=== PATIENT | male | born 1945 | race Caucasian/White ===

== ENCOUNTER 2016-11-27 14:32 | Inpatient (IN) | payer BC, OTHER ==
[~2016-11-27] VITALS: Ht 167.6 cm; Wt 67.5 kg
[~2016-11-27 14:32] MED LIST: ALL100 PO; COLE625T PO; LEUP30IN3 IM; NRN600 PO; OMEP20CA59 PO; ONDA4TAB46 PO; TAMS0.4C38 PO; TAPE1TAB10 PO; TAPE75TA2 PO
[2016-11-27] MEDS ORDERED: ALLO100T PO (15:50)
[2016-11-27] MEDS ORDERED: NRN600 PO (15:50)
--- NOTE | 2016-11-27 16:07 | EMERGENCY ROOM VISIT NOTE ---
History Report prepared by Adria: Chantel Ku Under the Supervision of: Dr. Brent Ford D.O. First contact with patient: 15:54 Chief Complaint: ABDOMINAL PAIN Stated Complaint: BLACK STOOLS, STAGE 4 CANCER, ABDOMINAL PAIN Nursing Triage Summary: Triage note; Pt ambulatory to triage. pt reports intermittent generalized abd pain x 2 weeks. pt reports black tarry stools which started today. pt reports nausea. pt reports stage 4 prostate cancer with mets. pt reports chemo tx in sep 2016. pt denies any weakness or dizziness. History of Present Illness The patient is a 71 year old male who presents to the Emergency Room with complaints of persistent abdominal pain that began two weeks ago. He currently rates his discomfort as a 7/10 in severity and describes it as a soreness. The patient states that he has a history of colon cancer, and additionally notes that he is currently battling aggressive stage IV prostate cancer. He states that his last chemotherapy treatment was in September 2016. The patient notes that today he developed melanotic stools. He notes that he has had pain to his left ribcage. The patient denies being on any blood thinners and denies any history of DVTs or PEs. He denies any chest pain or shortness of breath today. Source of History: patient Onset: two weeks ago Position: abdomen Symptom Intensity: 7/10 Quality: other (soreness) Timing: other (persistent) Associated Symptoms: + melena, No SOB, No chest pain Note: Associated Symptoms: Pain to left ribcage. Review of Systems See above for pertinent positives & negatives. A total of 10 systems reviewed and were otherwise negative. Past Medical & Surgical Medical Problems: (1) Abdominal pain (2) Hydronephrosis, left (3) Left ureteral calculus (4) Prostate ca Surgical Problems: (1) Hx of cholecystectomy (2) S/P colectomy Family History FH: GI cancer Social History Smoking Status: Never Smoker Alcohol Use: none Drug Use: none Marital Status: Current/Historical Medications Scheduled Allopurinol (Zyloprim), 100 MG PO BID Colesevelam (Welchol), 625 MG PO TID Gabapentin (Gabapentin), 600 MG PO QID Leuprolide Acetate (Lupron Depot), 30 MG IM [id number] Omeprazole (Prilosec), 20 MG PO QAM Tamsulosin Hcl (Flomax), 0.4 MG PO QPM Tapentadol Hcl (Nucynta Er), 1 TAB PO BID Scheduled PRN Tapentadol Hcl (Nucynta), 75 MG PO Q6H PRN for Pain Allergies Coded Allergies: No Known Allergies (Unverified , 11/27/16) Physical Exam Vital Signs Date Time Temp Pulse Resp B/P Pulse Ox O2 Delivery O2 Flow Rate FiO2 11/27/16 16:44 77 11/27/16 16:43 77 18 132/85 98 11/27/16 14:39 36.8 83 18 114/80 98 Room Air Physical Exam GENERAL: Patient is well appearing and in no acute distress. HEENT: No acute trauma, normocephalic atraumatic, mucous membranes moist, no nasal congestion, no scleral icterus. NECK: No stridor, no adenopathy, no meningismus, trachea is midline. LUNGS: No dyspnea. Clear to auscultation and equal bilaterally. No wheeze, no rhonchi. HEART: Regular rate and rhythm. No murmurs, rubs, gallops appreciated. ABDOMEN: Soft, nontender, bowel sounds positive, no masses appreciated, no peritonitis. BACK: No midline tenderness, no CVA tenderness RECTAL: Mild tenderness, black stool guaiac positive. EXTREMITIES: Normal motion all extremities, no cyanosis, no edema. NEUROLOGIC: Alert and oriented, no acute motor or sensory deficits, no focal weakness, cranial nerves grossly intact. SKIN: No rash, no jaundice, no diaphoresis. Medical Decision & Procedures ER Provider Diagnostic Interpretation: X ray results and stated below per my interpretation and radiologist interpretation. Other radiology results and stated below per my review and radiologist interpretation: ABDOMEN AND PELVIS CT WITH IV CONTRAST CT DOSE: 266.78 mGy.cm HISTORY: GI bleeding gi bleeding, Known CA TECHNIQUE: Multiaxial CT images of the abdomen and pelvis were performed following the use of intravenous contrast. COMPARISON STUDY: 09/26/2016 FINDINGS: Lung bases are clear. The hepatic metastatic change is considered stable. Slight increase in size of a least one of the hepatic metastatic deposit is now measuring 1.6 cm. Fatty infiltration of pancreas stable. Prior cholecystectomy. Mild left renal hydronephrosis stable from the prior exam including perinephric infiltrative change left as well as right renal regions. Left para-aortic adenopathy slightly progressive compared to the prior exam with current maximum dimensions of 4.6 cm increased from 4.0 cm. Small anterior ventral hernia containing a small loop of small bowel unchanged. There is a nonobstructive finding. Bony metastatic change unaltered area in prosthetic radioactive seeds unchanged in position. Several bilateral pelvic vascular clips unchanged. IMPRESSION: 1. Findings of slightly progressive periaortic necrotic philly pathology. 2. Slight progression of the patient's superior right hepatic lobe metastatic change. 3. Mild left hydronephrosis minimally progressive from the prior study. 4. Bony metastatic change stable. 5. Nonobstructive bowel pattern unchanged Electronically signed by: Dwight Ziegler M.D. 11/27/2016 5:58 PM Dictated Date/Time: 11/27/2016 5:52 PM Laboratory Results 11/27/16 16:35 Red Blood Count 3.19, Mean Corpuscular Volume 100.3, Mean Corpuscular Hemoglobin 33.5, Mean Corpuscular Hemoglobin Concent 33.4, Mean Platelet Volume 9.2, Neutrophils (%) (Auto) 82.0, Lymphocytes (%) (Auto) 7.2, Monocytes (%) ( Auto) 9.6, Eosinophils (%) (Auto) 0.8, Basophils (%) (Auto) 0.2, Neutrophils # ( Auto) 5.38, Lymphocytes # (Auto) 0.47, Monocytes # (Auto) 0.63, Eosinophils # ( Auto) 0.05, Basophils # (Auto) 0.01 11/27/16 16:35 Test 11/27/16 16:35 11/27/16 17:30 White Blood Count 6.55 K/uL (4.8-10.8) Red Blood Count 3.19 M/uL (4.7-6.1) Hemoglobin 10.7 g/dL (14.0-18.0) Hematocrit 32.0 % (42-52) Mean Corpuscular Volume 100.3 fL (80-100) Mean Corpuscular Hemoglobin 33.5 pg (25-34) Mean Corpuscular Hemoglobin Concent 33.4 g/dl (32-36) Platelet Count 265 K/uL (130-400) Mean Platelet Volume 9.2 fL (7.4-10.4) Neutrophils (%) (Auto) 82.0 % Lymphocytes (%) (Auto) 7.2 % Monocytes (%) (Auto) 9.6 % Eosinophils (%) (Auto) 0.8 % Basophils (%) (Auto) 0.2 % Neutrophils # (Auto) 5.38 K/uL (1.4-6.5) Lymphocytes # (Auto) 0.47 K/uL (1.2-3.4) Monocytes # (Auto) 0.63 K/uL (0.11-0.59) Eosinophils # (Auto) 0.05 K/uL (0-0.5) Basophils # (Auto) 0.01 K/uL (0-0.2) RDW Standard Deviation 57.4 fL (36.4-46.3) RDW Coefficient of Variation 15.4 % (11.5-14.5) Immature Granulocyte % (Auto) 0.2 % Immature Granulocyte # (Auto) 0.01 K/uL (0.00-0.02) Prothrombin Time 10.4 SECONDS (9.0-12.0) Prothromb Time International Ratio 1.0 (0.9-1.1) Activated Partial Thromboplast Time 26.2 SECONDS (21.0-31.0) Partial Thromboplastin Ratio 1.0 Anion Gap 9.0 mmol/L (3-11) Est Creatinine Clear Calc Drug Dose 71.1 ml/min Estimated GFR () 101.1 Estimated GFR (Non- 87.2 BUN/Creatinine Ratio 11.7 (10-20) Calcium Level 9.0 mg/dl (8.5-10.1) Total Bilirubin 0.3 mg/dl (0.2-1) Direct Bilirubin < 0.1 mg/dl (0-0.2) Aspartate Amino Transf (AST/SGOT) 21 U/L (15-37) Alanine Aminotransferase (ALT/SGPT) 25 U/L (12-78) Alkaline Phosphatase 65 U/L (45-117) Total Protein 7.0 gm/dl (6.4-8.2) Albumin 3.7 gm/dl (3.4-5.0) Lipase 49 U/L (73-393) Urine Color YELLOW Urine Appearance CLEAR (CLEAR) Urine pH 5.0 (4.5-7.5) Urine Specific [place] 1.001 (1.000-1.030) Urine Protein NEG (NEG) Urine Glucose (UA) NEG (NEG) Urine Ketones NEG (NEG) Urine Occult Blood NEG (NEG) Urine Nitrite NEG (NEG) Urine Bilirubin NEG (NEG) Urine Urobilinogen NEG (NEG) Urine Leukocyte Esterase NEG (NEG) Laboratory results as reviewed by me. Medications Administered Medications (Trade) Dose Ordered Sig/Scott Route Start Time Stop Time Status Last Admin Dose Admin Sodium Chloride (Nss 1000ml) 1,000 ml @ 999 mls/hr Q1H1M STAT IV 11/27/16 16:18 11/27/16 17:18 DC 11/27/16 16:39 999 MLS/HR Hydromorphone HCl (Dilaudid Inj) 2 mg ONE STAT IV 11/27/16 16:18 11/27/16 16:21 DC 11/27/16 16:39 2 MG ECG Indication: abdominal pain Rate (beats per minute): 74 Rhythm: normal sinus Findings: PAC, other (Normal axis, normal intervals) Comparison ECG Date: 12/02/15 Change: no significant change ED Course 1556: The patient was evaluated in room B10. A complete history and physical exam was performed. 1618: Ordered Dilaudid Inj 2 mg IV, Sodium Chloride 1000 ml @ 999 mls/hr IV. 1755: I reevaluated the patient and he is feeling better. 180: I discussed the patients case with Dr. Khoury [facility]. He is going to evaluate the patient for further treatment. 180: I reevaluated the patient and he is doing well. I discussed all the exam findings with him and I discussed the treatment plan. He verbalized complete understanding and agreement. He is going to be evaluated for further treatment. Medical Decision Differential diagnosis: Etiologies such as diverticulosis, AVM, coagulopathy, colitis, inflammatory bowel disease, malignancy, Amber-Roper tear, esophagitis, peptic ulcer disease , variceal bleed, gastritis, epistaxis, fissure, hemorrhoids, as well as others were entertained. Patient is a 71-year-old male who presents today with black tarry stools, he has had a GI bleed once before, is significant past medical history includes recurrent metastatic prostate cancer, he has been a colon cancer survivor already. Per the records it is stage IV cancer burden, he was supposed to receive a CT scan of the abdomen and pelvis recently and has not been obtained due to insurance denial. Today on physical exam he does have black stool in the vault that is guaiac positive, and concern for gastrointestinal bleeding, I placed a second IV. I will obtain a CT scan of the abdomen to look for additional pathology that may be the source of the gastrointestinal bleeding. I discussed the case with the hospitalist Dr. Khoury who will be down to evaluate the patient. Consults Time Called: 1800 Consulting Physician: POLI Franks Returned Call: [phone] I discussed the patients case with POLI Franks. He is going to evaluate the patient for further treatment. Impression Primary Impression: Gastrointestinal bleeding Additional Impressions: GI malignancy Anemia Metastasis Scribe Attestation The scribe's documentation has been prepared under my direction and personally reviewed by me in its entirety. I confirm that the note above accurately reflects all work, treatment, procedures, and medical decision making performed by me. Departure Information Dispostion Being Evaluated By Hospitalist Jose Antonio Santiago M.D. (PCP) Problem Qualifiers
[2016-11-27] MEDS ORDERED: HYDROmorphone INJ 1 MG/ML SYR IV STA (16:18)
[2016-11-27] MEDS ORDERED: SODIUM CHLORIDE 0.9% 1000ML 1,000 ML IV STA (16:18)
[2016-11-27 16:45] LABS: BASO % 0.2 %; BASO ABS # 0.01 K/uL (0-0.2); COMPLETE YES; EOS % 0.8 %; IG% 0.2 %; LYMPH % 7.2 %; LYMPH ABS # 0.47 K/uL (1.2-3.4); MEAN CELL VOLUME 100.3 fL (80-100); MEAN CORPUSCULAR HEMOGLOBIN 33.5 pg (25-34); MEAN CORPUSCULAR HGB CONC 33.4 g/dl (32-36); MEAN PLATELET VOLUME 9.2 fL (7.4-10.4); MONO % 9.6 %; PLATELET COUNT 265 K/uL (130-400); RED BLOOD COUNT 3.19 M/uL (4.7-6.1); WHITE BLOOD COUNT 6.55 K/uL (4.8-10.8)
[2016-11-27 16:55] LABS: PROTHROMBIN TIME (PATIENT) 10.4 SECONDS (9.0-12.0)
[2016-11-27 17:03] LABS: ALT/SGPT 25 U/L (12-78); AST/SGOT 21 U/L (15-37); BLOOD UREA NITROGEN 10 mg/dl (7-18); BUN/CREATININE RATIO 11.7 (10-20); CARBON DIOXIDE 28 mmol/L (21-32); CHLORIDE 105 mmol/L (98-107); CREATININE 0.86 mg/dl (0.60-1.40); GLUCOSE 102 mg/dl (70-99); POTASSIUM 4.2 mmol/L (3.5-5.1); SODIUM 142 mmol/L (136-145)
[2016-11-27 17:06] LABS: ALKALINE PHOSPHATASE 65 U/L (45-117)
[2016-11-27] MEDS ORDERED: OPTIRAY 320 IV PRN (17:30)
[2016-11-27 17:41] LABS: URINE APPEARANCE CLEAR (CLEAR); URINE BILIRUBIN NEG (NEG); URINE COLOR YELLOW; URINE NITRITE NEG (NEG); URINE SPECIFIC GRAVITY 1.001 (1.000-1.030); UROBILINOGEN NEG (NEG)
[2016-11-27 17:43] LABS: MANUAL MICROSCOPIC REQUIRED? NO; REVIEW REQ? NO
--- NOTE | 2016-11-27 17:59 | DIAGNOSTIC IMAGING REPORT ---
ABDOMEN AND PELVIS CT WITH IV CONTRAST CT DOSE: 266.78 mGy.cm HISTORY: GI bleeding gi bleeding, Known CA TECHNIQUE: Multiaxial CT images of the abdomen and pelvis were performed following the use of intravenous contrast. COMPARISON STUDY: 09/26/2016 FINDINGS: Lung bases are clear. The hepatic metastatic change is considered stable. Slight increase in size of a least one of the hepatic metastatic deposit is now measuring 1.6 cm. Fatty infiltration of pancreas stable. Prior cholecystectomy. Mild left renal hydronephrosis stable from the prior exam including perinephric infiltrative change left as well as right renal regions. Left para-aortic adenopathy slightly progressive compared to the prior exam with current maximum dimensions of 4.6 cm increased from 4.0 cm. Small anterior ventral hernia containing a small loop of small bowel unchanged. There is a nonobstructive finding. Bony metastatic change unaltered area in prosthetic radioactive seeds unchanged in position. Several bilateral pelvic vascular clips unchanged. IMPRESSION: 1. Findings of slightly progressive periaortic necrotic philly pathology. 2. Slight progression of the patient's superior right hepatic lobe metastatic change. 3. Mild left hydronephrosis minimally progressive from the prior study. 4. Bony metastatic change stable. 5. Nonobstructive bowel pattern unchanged Electronically signed by: Dwight Ziegler M.D. 11/27/2016 5:58 PM Dictated Date/Time: 11/27/2016 5:52 PM
[2016-11-27] MEDS ORDERED: TAPENTADOL HCL 50 MG TAB PO PRN (18:15)
[2016-11-27] MEDS ORDERED: ACETAMINOPHEN 325 MG TAB PO PRN (18:15)
[2016-11-27] MEDS ORDERED: ONDANSETRON INJ 2 MG/ML 2 ML VIAL IV PRN (18:15)
[2016-11-27] MEDS ORDERED: ONDANSETRON INJ 2 MG/ML 2 ML VIAL ONE (18:31)
[2016-11-27] MEDS ORDERED: PANTOprazole INJ 80 MG in DEXTROSE 5% 100ML IV SCH (19:00)
--- NOTE | 2016-11-27 19:09 | History and Physical ---
History & Physical Date & Time of Service: Nov 27, 2016 at 18:52 Chief Complaint: Black Stools, Stage 4 Cancer, Abdominal Pain Primary Care Physician: Jose Antonio Brock M.D. 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 Symptoms started yesterday with one stool being darker. Then today he has had numerous dark bowel movements. He says that the stools are loose but they are always on the loose side after his hemicolectomy. He also has developed epigastric pain that is new for him. No history of peptic ulcers. He says that he noticed similar pain intermittently over past month that would get better with eating. No vomiting. Here in the ED his Hb was > 10 and BP and HR stable. Recent history is significant for the metastatic prostate cancer. He just finished systemic chemotherapy a month ago and he has been started on Leupron every few weeks. He follows with Dr. Telles. A CT scan of the abdomen/pelvis in the ED showed some progression of both periaortic nodes and hepatic disease. Bone metastases were noted to be stable. No acute inflammatory or infections changes, no bowel obstruction. Past Medical/Surgical History h/o colon cancer, s/p hemicolectomy, adjuvent chemo h/o small bowel cancer, s/p small bowel resection, adjuvent chemo metastatic prostate cancer - finished systemic chemo one month ago Neuropathy GERD Gout Family History Mother's side: numerous colon cancers and breast cancers Father: high cholesterol, strokes Social History Smoking Status: Never Smoker Drug Use: none Marital Status: Housing status: lives with family Immunizations History of Influenza Vaccine: Yes Influenza Vaccine Date: Nov 12, 2013 History of Tetanus Vaccine?: utd Tetanus Immunization Date: Nov 12, 2013 History of Pneumococcal: Yes Pneumococcal Date: Nov 12, 2013 History of Hepatitis B Vaccine: No Multi-Drug Resistant Organisms History of MDRO: No Allergies Coded Allergies: No Known Allergies (Unverified , 11/27/16) Home Medications Scheduled Allopurinol (Zyloprim), 100 MG PO BID Colesevelam (Welchol), 625 MG PO TID Gabapentin (Gabapentin), 600 MG PO QID Leuprolide Acetate (Lupron Depot), 30 MG IM [id number] Omeprazole (Prilosec), 20 MG PO QAM Tamsulosin Hcl (Flomax), 0.4 MG PO QPM Tapentadol Hcl (Nucynta Er), 1 TAB PO BID Scheduled PRN Tapentadol Hcl (Nucynta), 75 MG PO Q6H PRN for Pain Review of Systems Constitutional: No chills, No fatigue, No fever, No problem reported, No sweats , No weakness, No weight loss Eyes: No diplopia, No discharge, No eye pain, No problem reported, No redness, No worsening of vision ENT: No dental problems, No hearing loss, No nasal symptoms, No problem reported, No sore throat, No tinnitus, No trouble swallowing, No unusual epistaxis Respiratory: No cough, No dyspnea at rest, No dyspnea on exertion, No hemoptysis, No problem reported, No shortness of breath, No sputum, No wheezing Cardiovascular: No PND, No chest pain, No claudication, No edema, No orthopnea , No palpitations, No problem reported Abdomen: + GI bleeding (dark, melanotic stools, no bright red blood), + diarrhea, + nausea, + pain (epigastric), No constipation, No vomiting Musculoskeletal: No calf pain, No joint pain, No muscle pain, No problem reported, No swelling Genitourinary - Male: No dysuria, No hematuria, No urinary frequency, No urinary urgency Neurologic: No balance problems, No memory loss, No numbness/tingling, No paralysis, No problem reported, No vertigo, No weakness Psychiatric: No anhedonism, No anxiety, No depression symptoms, No insomnia, No problem reported, No substance abuse Endocrine: No excessive thirst, No excessive urination, No fatigue, No problem reported Hematologic / Lymphatic: No abnormal bleeding/bruising, No clotting problems, No night sweats, No problem reported, No swollen lymph nodes Integumentary: No bleeding, No color change, No itch, No new/changing skin lesions, No problem reported, No rash Allergic / Immunologic: No environmental allergies, No food allergies, No frequent infections, No hives, No pet sensitivities, No poor healing, No problem reported, No prolonged convalescence, No seasonal allergies Physical Exam Vital Signs Date Time Temp Pulse Resp B/P Pulse Ox O2 Delivery O2 Flow Rate FiO2 11/27/16 18:29 76 16 130/77 97 11/27/16 16:44 77 11/27/16 16:43 77 18 132/85 98 11/27/16 14:39 36.8 83 18 114/80 98 Room Air General Appearance: WD/WN, no apparent distress Head: normocephalic, atraumatic Eyes: normal inspection, EOMI, sclerae normal ENT: normal ENT inspection, hearing grossly normal, pharynx normal Neck: supple, no adenopathy, no JVD, trachea midline Respiratory/Chest: chest non-tender, lungs clear, normal breath sounds, no respiratory distress, no accessory muscle use Cardiovascular: regular rate, rhythm, no edema, no gallop, no JVD, no murmur, normal peripheral pulses Abdomen/GI: normal bowel sounds, non tender, soft, no organomegaly Back: normal inspection, no CVA tenderness, no muscle spasm, normal range of motion Extremities/Musculoskelatal: normal inspection, no calf tenderness, normal capillary refill, no pedal edema, normal range of motion, non-tender, pelvis stable Neurologic/Psych: hand reamer II-XII nml as tested, no motor/sensory deficits, alert, normal mood/affect, normal reflexes, oriented x 3 Skin: normal color, warm/dry, no rash Diagnostics Laboratory Results Results Past 24 Hours Test 11/27/16 16:35 11/27/16 17:30 Range/Units White Blood Count 6.55 4.8-10.8 K/uL Red Blood Count 3.19 4.7-6.1 M/uL Hemoglobin 10.7 14.0-18.0 g/dL Hematocrit 32.0 42-52 % Mean Corpuscular Volume 100.3 80-100 fL Mean Corpuscular Hemoglobin 33.5 25-34 pg Mean Corpuscular Hemoglobin Concent 33.4 32-36 g/dl Platelet Count 265 130-400 K/uL Mean Platelet Volume 9.2 7.4-10.4 fL Neutrophils (%) (Auto) 82.0 % Lymphocytes (%) (Auto) 7.2 % Monocytes (%) (Auto) 9.6 % Eosinophils (%) (Auto) 0.8 % Basophils (%) (Auto) 0.2 % Neutrophils # (Auto) 5.38 1.4-6.5 K/uL Lymphocytes # (Auto) 0.47 1.2-3.4 K/uL Monocytes # (Auto) 0.63 0.11-0.59 K/uL Eosinophils # (Auto) 0.05 0-0.5 K/uL Basophils # (Auto) 0.01 0-0.2 K/uL RDW Standard Deviation 57.4 36.4-46.3 fL RDW Coefficient of Variation 15.4 11.5-14.5 % Immature Granulocyte % (Auto) 0.2 % Immature Granulocyte # (Auto) 0.01 0.00-0.02 K/uL Prothrombin Time 10.4 9.0-12.0 SECONDS Prothromb Time International Ratio 1.0 0.9-1.1 Activated Partial Thromboplast Time 26.2 21.0-31.0 SECONDS Partial Thromboplastin Ratio 1.0 Sodium Level 142 136-145 mmol/L Potassium Level 4.2 3.5-5.1 mmol/L Chloride Level 105 98-107 mmol/L Carbon Dioxide Level 28 21-32 mmol/L Anion Gap 9.0 3-11 mmol/L Blood Urea Nitrogen 10 7-18 mg/dl Creatinine 0.86 0.60-1.40 mg/dl Est Creatinine Clear Calc Drug Dose 71.1 ml/min Estimated GFR () 101.1 Estimated GFR (Non- 87.2 BUN/Creatinine Ratio 11.7 10-20 Random Glucose 102 70-99 mg/dl Calcium Level 9.0 8.5-10.1 mg/dl Total Bilirubin 0.3 0.2-1 mg/dl Direct Bilirubin < 0.1 0-0.2 mg/dl Aspartate Amino Transf (AST/SGOT) 21 15-37 U/L Alanine Aminotransferase (ALT/SGPT) 25 12-78 U/L Alkaline Phosphatase 65 45-117 U/L Total Protein 7.0 6.4-8.2 gm/dl Albumin 3.7 3.4-5.0 gm/dl Lipase 49 73-393 U/L Urine Color YELLOW Urine Appearance CLEAR CLEAR Urine pH 5.0 4.5-7.5 Urine Specific [place] 1.001 1.000-1.030 Urine Protein NEG NEG Urine Glucose (UA) NEG NEG Urine Ketones NEG NEG Urine Occult Blood NEG NEG Urine Nitrite NEG NEG Urine Bilirubin NEG NEG Urine Urobilinogen NEG NEG Urine Leukocyte Esterase NEG NEG Diagnostic Radiology ABDOMEN AND PELVIS CT WITH IV CONTRAST CT DOSE: 266.78 mGy.cm HISTORY: GI bleeding gi bleeding, Known CA TECHNIQUE: Multiaxial CT images of the abdomen and pelvis were performed following the use of intravenous contrast. COMPARISON STUDY: 09/26/2016 FINDINGS: Lung bases are clear. The hepatic metastatic change is considered stable. Slight increase in size of a least one of the hepatic metastatic deposit is now measuring 1.6 cm. Fatty infiltration of pancreas stable. Prior cholecystectomy. Mild left renal hydronephrosis stable from the prior exam including perinephric infiltrative change left as well as right renal regions. Left para-aortic adenopathy slightly progressive compared to the prior exam with current maximum dimensions of 4.6 cm increased from 4.0 cm. Small anterior ventral hernia containing a small loop of small bowel unchanged. There is a nonobstructive finding. Bony metastatic change unaltered area in prosthetic radioactive seeds unchanged in position. Several bilateral pelvic vascular clips unchanged. IMPRESSION: 1. Findings of slightly progressive periaortic necrotic philly pathology. 2. Slight progression of the patient's superior right hepatic lobe metastatic change. 3. Mild left hydronephrosis minimally progressive from the prior study. 4. Bony metastatic change stable. 5. Nonobstructive bowel pattern unchanged EKG sinus rhythm with PAC's Impression Assessment and Plan 71 yo male with melena and epigastric pain of 2 days duration - GI bleed: repeat H/H in the morning, typed and screen, his vitals and H/H are stable currently will allow full liquid diet and then NPO after midnight consult GI Protonix BID - Prostate cancer: CT shows progression of periaortic and hepatic lesions, on Leupron currently follows with Dr. Telles - Neuropathy: continue Gabapentin - Gout: Allopurinol - remote h/o colon cancer and small bowel cancer: both in remission according to patient - DVT prophylaxis: SCD only due to bleeding Level of Care Med/Surg Resuscitation Status FULL RESUSCITATION VTE Prophylaxis VTE Risk Assessment Done? Y/N: Yes Risk Level: High Given or contraindicated: SCD's Additional Copies To Jose Antonio Brock M.D.
[2016-11-27] MEDS ORDERED: PANTOprazole INJ 40 MG in DEXTROSE 5% 100ML IV SCH (19:15)
[2016-11-27 19:57] VITALS: BP 151/71; PULSE 78; TEMP 36.8; O2SAT 97; Ht 167.6 cm; Wt 67.5 kg
[2016-11-27] MEDS: TAPENTADOL ER 50 MG TABCR PO SCH (20:47)
[2016-11-27] MEDS ORDERED: PANTOprazole INJ 40 MG in SYRINGE 0 ML IV SCH (21:00)
[2016-11-27] MEDS ORDERED: TAMSULOSIN HCL 0.4 MG CAP PO SCH (21:00)
[2016-11-27] MEDS: GABAPENTIN 600 MG TAB PO SCH (21:18)
[2016-11-27] MEDS: ALLOPURINOL 100 MG TAB PO SCH (21:18)
--- NOTE | 2016-11-27 23:27 | Progress Note ---
Progress Note patient continuing to have break through pain with current medication regimen Discussed with pharmacy about his nucynta as he is close to max daily dose Will cover breakthrough with dilaudid 2 mg iv and reassess/ adjust prn
[2016-11-27] MEDS: HYDROmorphone INJ 2 MG/ML SYR/VIAL IV PRN (23:41)
[2016-11-28] VITALS (7 sets, daily range): BP systolic 110–131; BP diastolic 64–76; PULSE 73–81; TEMP 36.2–37; O2SAT 91–97
[2016-11-28] MEDS ORDERED: ALUMINUM/MAGNESIUM SUSP 30 ML UDC PO STA (05:59)
[2016-11-28] MEDS ORDERED: ALUMINUM/MAGNESIUM SUSP 30 ML UDC PO PRN (06:00)
[2016-11-28 06:20] LABS: BASO % 0.2 %; BASO ABS # 0.01 K/uL (0-0.2); COMPLETE YES; EOS % 1.1 %; HEMATOCRIT 30.6 % (42-52); IG% 0.2 %; LYMPH % 17.7 %; MEAN PLATELET VOLUME 9.1 fL (7.4-10.4); NEUT % 65.8 %; PLATELET COUNT 250 K/uL (130-400); RED BLOOD COUNT 3.06 M/uL (4.7-6.1); WHITE BLOOD COUNT 4.53 K/uL (4.8-10.8)
[2016-11-28 06:48] LABS: CALCIUM 8.4 mg/dl (8.5-10.1); CREATININE 0.68 mg/dl (0.60-1.40); POTASSIUM 3.9 mmol/L (3.5-5.1)
[2016-11-28] MEDS: ALLOPURINOL 100 MG TAB PO SCH (07:20)
[2016-11-28] MEDS: GABAPENTIN 600 MG TAB PO SCH ×2 (07:21→11:40)
[2016-11-28] MEDS: TAPENTADOL ER 50 MG TABCR PO SCH (07:25)
[2016-11-28] MEDS: HYDROmorphone INJ 2 MG/ML SYR/VIAL IV PRN (07:26)
[2016-11-28] MEDS ORDERED: PANTOprazole INJ 40 MG in SYRINGE 0 ML IV SCH (09:00)
--- NOTE | 2016-11-28 09:27 | Gastrointestinal Consultation ---
Gastrointestinal Consultation Date of Consultation: Nov 28, 2016 Attending Physician: Dr. Khoury Consulting Physician: Dr. Baker/YURI Hurst Reason for Consultation: Epigastric pain and melena History of Present Illness Patient is a 71 year old male with a remote history of colon cancer status post right hemicolectomy as well as metastatic prostate cancer recently completing a cycle of chemotherapy admitted over the weekend with complaints of dark stools and epigastric pain beginning just prior to arrival at the hospital. On arrival , his hemoglobin was noted to be 10.7 and hematocrit 32.0. Today, his H&H was noted to be 10.1 and 30.6 respectively. BUN on arrival was 10 and noted to be 7 today. Since starting twice daily Protonix, he has had resolution of the epigastric discomfort and dark stools. States he did have a formed, brown stool this morning. No acute GI process was noted on abdominopelvic CT imaging but did demonstrate progressive metastatic involvement. The patient's only complaint is of mild left lower abdominal discomfort which has been quite chronic with occasional loose stools which he reports has been ongoing since his partial colectomy. Patient did undergo an investigative colonoscopy by Dr. Baker in May of 2016 for these symptoms which were felt possibly related to a colitis. He was noted to have a normal anastomosis with findings only of diverticulosis and internal hemorrhoids. Past Medical/Surgical History Medical Problems: (1) Anemia Status: Acute (2) Failure of outpatient treatment Status: Acute (3) Gastrointestinal bleeding Status: Acute (4) GI malignancy Status: Acute (5) Intractable abdominal pain Status: Acute (6) Metastasis Status: Acute (7) Neutropenia Status: Acute (8) Renal colic Status: Acute (9) Urinary tract infection Status: Acute (10) Vomiting Status: Acute Past Medical History: 1. Colon cancer 2. Small bowel cancer 3. Metastatic prostate cancer 4. Gout 5. GERD 6. Neuropathy Past Surgical History: 1. Right hemicolectomy 2. Colonoscopy Family History FH: GI cancer Mother with colon cancer. Negative for IBD. Social History Smoking Status: Never Smoker Alcohol Use: none Drug Use: none Marital Status: Allergies Coded Allergies: No Known Allergies (Unverified , 11/27/16) Current Medications Home Meds and Scripts Medications Dose Route/Sig Max Daily Dose Days Date Category Dose Instructions Gabapentin 600 Mg Tab 600 Mg PO QID 11/27/16 Reported Zyloprim (Allopurinol) 100 Mg Tab 100 Mg PO BID 11/27/16 Reported Flomax (Tamsulosin Hcl) 0.4 Mg Cap 0.4 Mg PO QPM 07/08/16 Reported Nucynta (Tapentadol) 75 Mg Tab 75 Mg PO Q6H PRN 06/20/16 Reported Nucynta Er (Tapentadol Hcl) 100 Mg Tab 1 Tab PO BID 12/02/15 Reported Lupron Depot (Leuprolide Acetate) 30 Mg Kit 30 Mg IM [id number] 10/16/14 Reported 07/05/16 Welchol (Colesevelam HCl) 625 Mg Tab 625 Mg PO TID 03/11/13 Reported Prilosec (Omeprazole) 20 Mg Capcr 20 Mg PO QAM 03/21/12 Reported Review of Systems Constitutional: No chills, No fever Eyes: No problem reported ENT: No problem reported Respiratory: No cough, No shortness of breath Cardiac: No chest pain, No palpitations Abdomen: + see HPI Musculoskeletal: No problem reported Male : No problem reported Neuro: No problem reported Psych: No problem reported Skin: No problem reported Physical Exam Date Time Temp Pulse Resp B/P Pulse Ox O2 Delivery O2 Flow Rate FiO2 11/28/16 08:00 92 Room Air 11/28/16 07:52 36.2 81 18 110/64 91 Room Air 11/28/16 04:14 36.8 73 16 111/64 97 Room Air 11/28/16 01:30 36.7 80 16 131/69 91 Room Air 11/27/16 23:59 Room Air 11/27/16 19:57 36.8 78 18 151/71 97 Room Air 11/27/16 19:19 69 19 138/70 97 Room Air 11/27/16 18:29 76 16 130/77 97 11/27/16 16:44 77 11/27/16 16:43 77 18 132/85 98 11/27/16 14:39 36.8 83 18 114/80 98 Room Air General Appearance: no apparent distress Eyes: EOMI ENT: hearing grossly normal Neck: supple Respiratory/Chest: lungs clear, normal breath sounds, no respiratory distress Cardiovascular: regular rate, rhythm, no gallop, no murmur Abdomen: normal bowel sounds, non tender, soft Extremities: no pedal edema Neurologic/Psych: alert, normal mood/affect, oriented x 3 Skin: no jaundice, warm/dry Laboratory Results Last 24 Hours Test 11/27/16 16:35 11/27/16 17:30 11/28/16 05:50 White Blood Count 6.55 K/uL 4.53 K/uL Red Blood Count 3.19 M/uL 3.06 M/uL Hemoglobin 10.7 g/dL 10.1 g/dL Hematocrit 32.0 % 30.6 % Mean Corpuscular Volume 100.3 fL 100.0 fL Mean Corpuscular Hemoglobin 33.5 pg 33.0 pg Mean Corpuscular Hemoglobin Concent 33.4 g/dl 33.0 g/dl Platelet Count 265 K/uL 250 K/uL Mean Platelet Volume 9.2 fL 9.1 fL Neutrophils (%) (Auto) 82.0 % 65.8 % Lymphocytes (%) (Auto) 7.2 % 17.7 % Monocytes (%) (Auto) 9.6 % 15.0 % Eosinophils (%) (Auto) 0.8 % 1.1 % Basophils (%) (Auto) 0.2 % 0.2 % Neutrophils # (Auto) 5.38 K/uL 2.98 K/uL Lymphocytes # (Auto) 0.47 K/uL 0.80 K/uL Monocytes # (Auto) 0.63 K/uL 0.68 K/uL Eosinophils # (Auto) 0.05 K/uL 0.05 K/uL Basophils # (Auto) 0.01 K/uL 0.01 K/uL RDW Standard Deviation 57.4 fL 56.9 fL RDW Coefficient of Variation 15.4 % 15.4 % Immature Granulocyte % (Auto) 0.2 % 0.2 % Immature Granulocyte # (Auto) 0.01 K/uL 0.01 K/uL Prothrombin Time 10.4 SECONDS Prothromb Time International Ratio 1.0 Activated Partial Thromboplast Time 26.2 SECONDS Partial Thromboplastin Ratio 1.0 Sodium Level 142 mmol/L 141 mmol/L Potassium Level 4.2 mmol/L 3.9 mmol/L Chloride Level 105 mmol/L 105 mmol/L Carbon Dioxide Level 28 mmol/L 26 mmol/L Anion Gap 9.0 mmol/L 10.0 mmol/L Blood Urea Nitrogen 10 mg/dl 7 mg/dl Creatinine 0.86 mg/dl 0.68 mg/dl Est Creatinine Clear Calc Drug Dose 71.1 ml/min 89.9 ml/min Estimated GFR () 101.1 111.4 Estimated GFR (Non- 87.2 96.1 BUN/Creatinine Ratio 11.7 11.0 Random Glucose 102 mg/dl 94 mg/dl Calcium Level 9.0 mg/dl 8.4 mg/dl Total Bilirubin 0.3 mg/dl Direct Bilirubin < 0.1 mg/dl Aspartate Amino Transf (AST/SGOT) 21 U/L Alanine Aminotransferase (ALT/SGPT) 25 U/L Alkaline Phosphatase 65 U/L Total Protein 7.0 gm/dl Albumin 3.7 gm/dl Lipase 49 U/L Urine Color YELLOW Urine Appearance CLEAR Urine pH 5.0 Urine Specific [place] 1.001 Urine Protein NEG Urine Glucose (UA) NEG Urine Ketones NEG Urine Occult Blood NEG Urine Nitrite NEG Urine Bilirubin NEG Urine Urobilinogen NEG Urine Leukocyte Esterase NEG Magnesium Level 2.0 mg/dl Impression Patient is a 71 year old male with metastatic prostate cancer admitted with melena and epigastric pain which have since resolved with twice daily PPI therapy. Diff dx: GERD vs gastritis vs PUD vs malignancy vs other. Plan 1. Recommend continuation of Protonix 40 mg by mouth twice daily. 2. Discussed invasive work up. Decided against upper endoscopy at this time as he remains hemodynamically stable and is having improved symptoms. 3. Okay to advance diet. 4. Could reconsider outpatient work up if symptoms return. 5. Stable for discharge from GI standpoint once cleared by primary team. Thank you for allowing us to participate in the care of this pleasant gentleman. If you have any questions or concerns, please do not hesitate to contact us. Agree with YURI Hurst as above Abd: Soft, NT, ND, +BS Agree with Protonix 40mg by mouth twice daily Add Carafate 1g by mouth QID AC and HS for 10 days
[2016-11-28] MEDS ORDERED: PANT40TA PO (15:09)
[2016-11-28] MEDS ORDERED: CRFL PO (15:10)
--- NOTE | 2016-11-28 15:14 | Discharge Instructions ---
Discharge Instructions Admission Reason for Admission: Melena, abdominal pain Discharge Discharge Diagnosis / Problem: melena, abdominal pain Discharge Goals Goal(s): Improve disease control, Therapeutic intervention Activity Recommendations Activity Limitations: resume your previous activity . Instructions / Follow-Up Instructions / Follow-Up You were admitted for GI bleeding. Your red blood cell count remained stable and your bleeding resolved. Your abdominal pain improved. This could be from an ulcer in your stomach or small intestine, however because you were improving, the GI specialist did not think it was necessary to perform an endoscopy to look into your stomach. Please follow up with Dr. Brock within 1 week. Please take the Protonix 40mg twice daily and carafate 1 gram four times daily. If you develop black stools or bloody stools, any blood in your vomit, or persistent vomiting, please return immediately to the ER. Current Hospital Diet Patient's current hospital diet: Full Liquid Diet Discharge Diet Recommended Diet: Regular Diet Procedures Procedures Performed: CT Abdomen/pelvis Pending Studies Studies pending at discharge: no Laboratory Results Hemoglobin A1c Test 09/02/16 10:13 Range/Units Estimated Average Glucose 117 mg/dl Hemoglobin A1c 5.7 H 4.5-5.6 % Medical Emergencies . Who to Call and When: Medical Emergencies: If at any time you feel your situation is an emergency, please call 911 immediately. . Non-Emergent Contact Non-Emergency issues call your: Primary Care Provider Call Non-Emergent contact if: temperature is above 101, your pain is not controlled, your pain is worsening, your pain is unusual for you, your pain is concerning you, you have any medication questions . . "Provider Documentation" section prepared by Hafsa Kumar. VTE Core Measure Inpt VTE Proph given/why not?: SCD's
--- NOTE | 2016-11-28 15:26 | Discharge Summary ---
Discharge Summary Admission Date: Nov 27, 2016 at 18:18 Discharge Date: Nov 28, 2016 Discharge Disposition: Home Principal Diagnosis: Melena, abdominal pain Problems/Secondary Diagnoses: Metastatic Prostate cancer Neuropathy Gout H/o colon cancer and small bowel adenocarcinoma GERD Mild left hydronephrosis-stable from previous Immunizations: Have You Had Influenza Vaccine: Yes Influenza Vaccine Date: Nov 12, 2013 History of Tetanus Vaccine?: utd Tetanus Immunization Date: Nov 12, 2013 History of Pneumococcal: Yes Pneumococcal Date: Nov 12, 2013 History of Hepatitis B Vaccine: No Procedures: ABDOMEN AND PELVIS CT WITH IV CONTRAST CT DOSE: 266.78 mGy.cm HISTORY: GI bleeding gi bleeding, Known CA TECHNIQUE: Multiaxial CT images of the abdomen and pelvis were performed following the use of intravenous contrast. COMPARISON STUDY: 09/26/2016 FINDINGS: Lung bases are clear. The hepatic metastatic change is considered stable. Slight increase in size of a least one of the hepatic metastatic deposit is now measuring 1.6 cm. Fatty infiltration of pancreas stable. Prior cholecystectomy. Mild left renal hydronephrosis stable from the prior exam including perinephric infiltrative change left as well as right renal regions. Left para-aortic adenopathy slightly progressive compared to the prior exam with current maximum dimensions of 4.6 cm increased from 4.0 cm. Small anterior ventral hernia containing a small loop of small bowel unchanged. There is a nonobstructive finding. Bony metastatic change unaltered area in prosthetic radioactive seeds unchanged in position. Several bilateral pelvic vascular clips unchanged. IMPRESSION: 1. Findings of slightly progressive periaortic necrotic [place] pathology. 2. Slight progression of the patient's superior right hepatic lobe metastatic change. 3. Mild left hydronephrosis minimally progressive from the prior study. 4. Bony metastatic change stable. 5. Nonobstructive bowel pattern unchanged Consultations: Gastroenterology Medication Reconciliation New Medications: Pantoprazole Sodium (Protonix) 40 Mg Tab 40 MG PO BID, #60 TAB Sucralfate (Carafate) 1 Gm/10 Ml Maxine 10 ML PO QID for 14 Days, #600 ML Continued Medications: Allopurinol (Zyloprim) 100 Mg Tab 100 MG PO BID, TAB Colesevelam (Welchol) 625 Mg Tab 625 MG PO TID, TAB Gabapentin (Gabapentin) 600 Mg Tab 600 MG PO QID Leuprolide Acetate (Lupron Depot) 30 Mg Kit 30 MG IM [id number] 07/05/16 Tamsulosin Hcl (Flomax) 0.4 Mg Cap 0.4 MG PO QPM, CAP Tapentadol Hcl (Nucynta Er) 100 Mg Tab 1 TAB PO BID Tapentadol Hcl (Nucynta) 75 Mg Tab 75 MG PO Q6H PRN for Pain, TAB Discontinued Medications: Omeprazole (Prilosec) 20 Mg Capcr 20 MG PO QAM Referrals At Discharge Follow up Referrals: Family Practice Referral - Within 1 Week with Jose Antonio Brock M.D. Discharge Exam On day of discharge had one small brown BM. He did have an episode of emesis that was yellow in color but then tolerated a full liquid diet for lunch. His epigastric abd pain had improved. His chronic left sided abdominal pain was stable from previous. Review of Systems: Constitutional: No fever Respiratory: No dyspnea on exertion, No shortness of breath Cardiovascular: No chest pain Abdomen: + pain, No GI bleeding, No diarrhea, No nausea, No vomiting Musculoskeletal: + muscle pain (left side) Genitourinary - Male: No problem reported Neurologic: No problem reported Psychiatric: No problem reported Endocrine: No problem reported Hematologic / Lymphatic: No problem reported Integumentary: No problem reported Physical Exam: General Appearance: WD/WN, no apparent distress Eyes: normal inspection, EOMI ENT: hearing grossly normal, pharynx normal Neck: supple, no adenopathy, thyroid normal, no JVD, trachea midline Respiratory/Chest: lungs clear, normal breath sounds, no respiratory distress, no accessory muscle use Cardiovascular: regular rate, rhythm, no edema, no gallop, no JVD, no murmur , normal peripheral pulses Abdomen / GI: normal bowel sounds, non tender, soft, no organomegaly, no pulsatile mass Extremities: normal inspection, no calf tenderness, normal capillary refill , no pedal edema Neurologic/Psychiatric: alert, normal mood/affect, oriented x 3 Skin: normal color, warm/dry, no rash Hospital Course 71 yo male with significant history of metastatic prostate cancer and more remote history of colon cancer s/p hemicolectomy and small bowel cancer s/p small bowel resection, presented to the ED with 2 days of melena. Symptoms started the day prior with one stool being darker. Then on the day of admission he had numerous dark bowel movements. He says that the stools are loose but they are always on the loose side after his hemicolectomy. He also has developed epigastric pain that is new for him. No history of peptic ulcers. He says that he noticed similar pain intermittently over past month that would get better with eating. No vomiting. Here in the ED his Hb was > 10 and BP and HR stable. Recent history is significant for the metastatic prostate cancer. He just finished systemic chemotherapy a month ago and he has been on Lupron q4 mo for the last year. He follows with Dr. Telles. A CT scan of the abdomen/pelvis in the ED showed some progression of both periaortic nodes and hepatic disease. Bone metastases were noted to be stable. No acute inflammatory or infections changes, no bowel obstruction. 71 yo male with melena and epigastric pain of 2 days duration, Hemoccult positive in the ER - GI bleed: repeat H/H the next morning was stable from admission, his vitals and H/H are stable currently and no further GI bleeding after admission tolerated full liquid diet consult GI appreciated and no need for EGD at this time given stability of hemoglobin and symptoms improving with IV Protonix Protonix BID po and Carafate qid follow up with PCP and with GI prn - Prostate cancer: CT shows progression of periaortic and hepatic lesions, on Lupron currently follows with Dr. Telles - Neuropathy: continue Gabapentin -he plans on following up with PCP about this soon -suggested Elavil or other TCA for chronic pain syndrome-he will discuss with PCP - Gout: Allopurinol - remote h/o colon cancer and small bowel cancer: both in remission according to patient - DVT prophylaxis: SCD only due to bleeding Total Time Spent: Greater than 30 minutes This includes examination of the patient, discharge planning, medication reconciliation, and communication with other providers. Discharge Instructions Please refer to the electronic Patient Visit Report (Discharge Instructions) for additional information. Follow-Up With PCP within [address] Baker prn Additional Copies To Jose Antonio Brock M.D.
--- NOTE | 2016-12-01 06:24 | EDITING REQUIRED CODING QUERY ---
CODING QUERY To promote full compliance with coding requirements relating to patient care, provider participation is requested in all cases of plate roller uncertainty. Please assist us with the question(s) below: Coding Question(s): Patient admitted with melena and epigastric pain. PPI therapy initiated. Underlying Neoplasm of prostate and colon/small intestine. Please document, if known or suspected, the etiology of the epigastric pain. Thank you. Agustin Rosales [facility] Physician's Response(s): Suspected PUD Principal Diagnosis: "_that condition established after study, to be chiefly responsible for occasioning the admission of the patient to the hospital for care." Co-Existing Principal Diagnosis: "_when two or more diagnoses equally meet the criteria for principal diagnosis as determined by the circumstances of admission, diagnostic work up, and/or therapy provided, and the Alphabetic Index, Tabular List, or another coding guideline does not provide sequencing direction, any one of the diagnoses may be sequenced first." "When the physician has documented what appears to be a current diagnosis in the body of the record, but has not included the diagnosis in the final diagnostic statement, the physician should be asked whether the diagnosis should be added." (Source Coding [facility] 2 QTR90. p3-4)
[2016-12-23] MEDS ORDERED: LDDP5 TD (11:07)
[2016-12-23] MEDS ORDERED: DRGTP50 TD (11:07)
[2016-12-23] MEDS ORDERED: NF656 TD (11:34)
[2016-12-23] MEDS ORDERED: FENT75DI2 TD (13:16)
[2017-01-14] MEDS ORDERED: METO5TAB3 PO (12:25)
[2017-01-14] MEDS ORDERED: GABA1SOL3 PO (12:25)
[2017-01-14] MEDS ORDERED: FENT75DI2 TOP (12:25)
[2017-01-14] MEDS ORDERED: LANS30TA3 NG (12:25)
[2017-01-14] MEDS ORDERED: HYDR4TAB78 PO (12:25)
[2017-01-14] MEDS ORDERED: PRED-301 PO (12:25)
[2017-01-14] MEDS ORDERED: ATV5 PO (12:25)
[2017-01-14] MEDS ORDERED: [UNRECOGNIZED DRUG - CODE] PO (12:25)
[2017-01-14] MEDS ORDERED: ONDA8TAB62 SL (12:26)
[2017-01-14] MEDS ORDERED: CRFUDL PO (12:26)
[2017-01-14] MEDS ORDERED: LANS30TA3 PO (12:33)
[2017-02-05] MEDS ORDERED: SCOP1DIS14 TD (18:02)
== END 2016-11-28 15:49 | disposition home or self-care (01) | DRG 378 ==
LOC: ENRESERVTM → ENRESERVDT → C.EDB 14:33 → C.4E 18:18
PROVIDERS: ADMIT Internal Medicine; ATTEND Family Medicine
DX: K27.4 Chronic or unspecified peptic ulcer, site unspecified, with hemorrhage (principal); N13.30 Unspecified hydronephrosis; C18.9 Malignant neoplasm of colon, unspecified; C79.51 Secondary malignant neoplasm of bone; C78.7 Secondary malignant neoplasm of liver and intrahepatic bile duct; C61 Malignant neoplasm of prostate; K21.9 Gastro-esophageal reflux disease without esophagitis; G89.4 Chronic pain syndrome; Z90.49 Acquired absence of other specified parts of digestive tract; M10.9 Gout, unspecified; G62.9 Polyneuropathy, unspecified; K43.9 Ventral hernia without obstruction or gangrene

== ENCOUNTER 2016-12-21 09:24 | Inpatient (IN) | payer BC, OTHER ==
[~2016-12-21] VITALS: Ht 167.6 cm; Wt 66.7 kg
[~2016-12-21 09:24] MED LIST changes: -ALL100 PO; +ALLO100T PO; -OMEP20CA59 PO; -ONDA4TAB46 PO
[2016-12-21] MEDS ORDERED: PANT40TA PO (10:06)
[2016-12-21] MEDS ORDERED: PRED-301 PO (10:06)
[2016-12-21] MEDS ORDERED: HYDR4TAB78 PO (10:06)
[2016-12-21] MEDS ORDERED: SODIUM CHLORIDE 0.9% 500ML 500 ML IV STA (10:32)
[2016-12-21] MEDS ORDERED: ONDANSETRON INJ 2 MG/ML 2 ML VIAL IV STA (10:32)
[2016-12-21] MEDS ORDERED: HYDROmorphone INJ 0.5 MG/0.5 ML SYR IV STA ×2 (10:32→11:46)
--- NOTE | 2016-12-21 10:34 | EMERGENCY ROOM VISIT NOTE ---
History Report prepared by Adria: Cameron Carbone Under the Supervision of: Dr. Robbi Swanson M.D. First contact with patient: 09:54 Chief Complaint: ABDOMINAL PAIN Stated Complaint: SEVERE ABD/BACK PAIN - DX: STAGE 4 CANCER Nursing Triage Summary: pt reports yesterday had opdivo infusion for prostates ca which has mets to lymph nodes. had sharp pain in bilat mid back. pain left rib area from a long time ago. had been to [facility] several times for rib pain. denies any vomiting feels nauseated took phenergan tab for nausea at 0830. denies any urinary or bowel problems. History of Present Illness The patient is a 71 year old male with a history of metastatic prostate cancer who presents to the Emergency Room with complaints of intermittent lower abdominal pain for the past two weeks. The pain is rated 8/10 in severity. The patient also complains of lower back pain/spasm that started last night. He is feeling nauseous but denies vomiting. He had Phenergan at 0830 this morning. He is not having any urinary or bowel problems. The patient has had metastasis from his prostate to his lymph nodes and liver. He received a chemotherapeutic infusion yesterday. The patient follows up with Dr. Telles, Oncologist. Source of History: patient Onset: two weeks Position: abdomen (lower) Symptom Intensity: 8/10 Timing: intermittent Associated Symptoms: + back pain, + nausea, No urinary symptoms, No vomiting Review of Systems See HPI for pertinent positives & negatives. A total of 10 systems reviewed and were otherwise negative. Past Medical & Surgical Medical Problems: (1) Abdominal pain (2) Hydronephrosis, left (3) Left ureteral calculus (4) Melena (5) Prostate ca (6) Prostate cancer metastatic to intraabdominal lymph node Surgical Problems: (1) Hx of cholecystectomy (2) S/P colectomy Family History FH: GI cancer Social History Smoking Status: Never Smoker Alcohol Use: none Drug Use: none Marital Status: Current/Historical Medications Scheduled Allopurinol (Zyloprim), 100 MG PO BID Colesevelam (Welchol), 625 MG PO TID Gabapentin (Gabapentin), 600 MG PO QID Leuprolide Acetate (Lupron Depot), 30 MG IM [id number] Pantoprazole (Protonix), 40 MG PO DAILY Prednisone (Prednisone), 5 MG PO DAILY Tamsulosin Hcl (Flomax), 0.4 MG PO QPM Tapentadol Hcl (Nucynta Er), 1 TAB PO BID Scheduled PRN Hydromorphone Hcl (Dilaudid), 4 TAB PO DAILY PRN for Pain Tapentadol Hcl (Nucynta), 75 MG PO DAILY PRN for Pain Allergies Coded Allergies: No Known Allergies (Unverified , 12/21/16) Physical Exam Vital Signs Date Time Temp Pulse Resp B/P Pulse Ox O2 Delivery O2 Flow Rate FiO2 12/21/16 13:38 67 18 167/90 95 Room Air 12/21/16 12:02 67 12/21/16 11:46 70 17 141/78 95 12/21/16 11:18 74 16 126/74 96 Room Air 12/21/16 09:37 36.7 81 18 103/60 97 Room Air Physical Exam GENERAL: Patient is a healthy-appearing well-nourished HEAD: Normocephalic atraumatic EYES: Ocular movements intact pupils equal and react to light OROPHARYNX mucous membranes are moist no exudates present no erythema or edema present NECK: Supple no nuchal rigidity CHEST: Good equal expansion LUNGS: Clear and equal to auscultation CARDIAC: Normal S1 and S2 ABDOMEN: Soft, diffusely tender, no guarding. BACK: No CVA tenderness EXTREMITIES: No pain upon palpation normal muscle strength in all groups no clubbing cyanosis or edema NEURO: Patient is following commands is answering questions appropriately. Alert and oriented x3 Cranial Nerves 2-12 grossly intact Medical Decision & Procedures ER Provider Diagnostic Interpretation: CT results as stated below per my review and radiologist interpretation: ABDOMEN AND PELVIS CT WITH IV CONTRAST CT DOSE: 386.83 mGycm HISTORY: Pain Pt c/o diffuse abd and back pain TECHNIQUE: Multiaxial CT images of the abdomen and pelvis were performed following the use of intravenous contrast. COMPARISON STUDY: 11/27/2016 FINDINGS: Mildly progressive hepatic metastatic disease. Mild increase in size and number of multiple metastatic deposits. Necrotic para-aortic adenopathy is moderately progressive. This para-aortic component maximum dimension has increased from 4. 6to5.1 cm maximum transaxial dimension. There are several additional nodes in left perinephric space. Largest measures 1.6 cm medial to the left renal hilum. Slightly progressive left renal periaortic infiltrative small ventral hernia containing a short segment of small bowel. This is a nonobstructive finding but potentially is incarcerated. This was present previously. Bowel pattern remains nonobstructive. Radioactive seeds again noted within the prosthetic bed. Blastic bony metastatic change unaltered from the prior study. Change. IMPRESSION: 1. Moderately progressive hepatic metastatic change compared to the prior study. 2. Mildly progressive left renal perinephric and perirenal philly change. 3. Stable to slightly increased partially necrotic periaortic adenopathy. 4. Nonobstructive bowel pattern. 5. Stable blastic metastatic change. 6. Study overall is consistent with that of progressive metastatic neoplastic change Electronically signed by: Dwight Ziegler M.D. 12/21/2016 11:55 AM Dictated Date/Time: 12/21/2016 11:[address] LUMBAR SPINE WITHOUT CT DOSE: CLINICAL HISTORY: Severe low back pain TECHNIQUE: Helical images were acquired in transverse plane. Reformatted sagittal and coronal images were reviewed. CONTRAST: No contrast was administered COMPARISON STUDY: None. FINDINGS: L1-2 level: There is no evidence of significant disc bulge or focal herniation. There is no evidence of spinal or foraminal stenosis. L2-3 level: There is a circumferential disc bulge with mild spinal stenosis. There is no significant foraminal narrowing. L3-4 level: There is a circumferential disc bulge with moderate spinal stenosis. There is moderate right-sided foraminal narrowing and mild left-sided foraminal narrowing L4-5 level: There is a mild circumferential disc bulge. There is minor spinal stenosis. There is moderate right-sided foraminal narrowing and mild left-sided foraminal narrowing L5-S1 level: No focal herniations are visualized. There is no spinal stenosis. There is bilateral foraminal stenosis. There are scattered blastic lesions within the sacrum and iliac bones, suspicious for blastic metastasis. There is pathologic retroperitoneal adenopathy IMPRESSION: 1. Sclerotic bone lesions, consistent with blastic metastasis 2. No acute fractures or traumatic subluxations 3. Multilevel spondylitic changes with multilevel foraminal narrowing, and moderate spinal stenosis at the L3-4 level. 4. Pathologic retroperitoneal adenopathy. Electronically signed by: Orlando Mcculluogh M.D. 12/21/2016 12:01 PM Dictated Date/Time: 12/21/2016 11:57 AM Laboratory Results 12/21/16 10:21 Red Blood Count 3.42, Mean Corpuscular Volume 94.7, Mean Corpuscular Hemoglobin 31.3, Mean Corpuscular Hemoglobin Concent 33.0, Mean Platelet Volume 9.1, Neutrophils (%) (Auto) 78.7, Lymphocytes (%) (Auto) 12.4, Monocytes (%) (Auto) 4.8, Eosinophils (%) (Auto) 3.5, Basophils (%) (Auto) 0.4, Neutrophils # (Auto) 4.45, Lymphocytes # (Auto) 0.70, Monocytes # (Auto) 0.27, Eosinophils # (Auto) 0.20, Basophils # (Auto) 0.02 12/21/16 10:21 Test 12/21/16 10:21 12/21/16 10:40 12/21/16 10:45 12/21/16 11:00 White Blood Count 5.65 K/uL (4.8-10.8) Red Blood Count 3.42 M/uL (4.7-6.1) Hemoglobin 10.7 g/dL (14.0-18.0) Hematocrit 32.4 % (42-52) Mean Corpuscular Volume 94.7 fL (80-100) Mean Corpuscular Hemoglobin 31.3 pg (25-34) Mean Corpuscular Hemoglobin Concent 33.0 g/dl (32-36) Platelet Count 168 K/uL (130-400) Mean Platelet Volume 9.1 fL (7.4-10.4) Neutrophils (%) (Auto) 78.7 % Lymphocytes (%) (Auto) 12.4 % Monocytes (%) (Auto) 4.8 % Eosinophils (%) (Auto) 3.5 % Basophils (%) (Auto) 0.4 % Neutrophils # (Auto) 4.45 K/uL (1.4-6.5) Lymphocytes # (Auto) 0.70 K/uL (1.2-3.4) Monocytes # (Auto) 0.27 K/uL (0.11-0.59) Eosinophils # (Auto) 0.20 K/uL (0-0.5) Basophils # (Auto) 0.02 K/uL (0-0.2) RDW Standard Deviation 48.8 fL (36.4-46.3) RDW Coefficient of Variation 13.9 % (11.5-14.5) Immature Granulocyte % (Auto) 0.2 % Immature Granulocyte # (Auto) 0.01 K/uL (0.00-0.02) Est Creatinine Clear Calc Drug Dose 86.1 ml/min Estimated GFR () 109.4 Estimated GFR (Non- 94.4 BUN/Creatinine Ratio 16.5 (10-20) Calcium Level 8.4 mg/dl (8.5-10.1) Total Bilirubin 0.3 mg/dl (0.2-1) Direct Bilirubin 0.1 mg/dl (0-0.2) Aspartate Amino Transf (AST/SGOT) 24 U/L (15-37) Alanine Aminotransferase (ALT/SGPT) 17 U/L (12-78) Alkaline Phosphatase 63 U/L (45-117) Total Protein 6.6 gm/dl (6.4-8.2) Albumin 3.4 gm/dl (3.4-5.0) Lipase 46 U/L (73-393) Urine Color DK YELLOW Urine Appearance CLEAR (CLEAR) Urine pH 5.0 (4.5-7.5) Urine Specific [place] 1.025 (1.000-1.030) Urine Protein 1+ (NEG) Urine Glucose (UA) NEG (NEG) Urine Ketones NEG (NEG) Urine Occult Blood NEG (NEG) Urine Nitrite NEG (NEG) Urine Bilirubin NEG (NEG) Urine Urobilinogen NEG (NEG) Urine Leukocyte Esterase NEG (NEG) Urine WBC (Auto) 1-5 /hpf (0-5) Urine RBC (Auto) 0-4 /hpf (0-4) Urine Hyaline Casts (Auto) 1-5 /lpf (0-5) Urine Epithelial Cells (Auto) 5-10 /lpf (0-5) Urine Bacteria (Auto) NEG (NEG) Bedside Lactic Acid Venous 1.05 mmol/L (0.90-1.70) Bedside Hemoglobin 11.2 g/dl (14.0-18.0) Bedside Hematocrit 33 % (42-52) Bedside Sodium 139 mEq/L (135-144) Bedside Potassium 3.4 mEq/L (3.3-5.0) Bedside Chloride 99 mEq/L (101-112) Bedside Total CO2 26 mEq/l (24-31) Anion Gap 18.0 mmol/L (16-25) Bedside Blood Urea Nitrogen 12 mg/dl (7-18) Bedside Creatinine 0.6 mg/dl (0.6-1.3) Bedside Glucose (other) 97 mg/dl (70-99) Bedside Ionized Calcium (Bernice) 1.17 mmol/l (1.12-1.32) Labs reviewed by ED physician. Medications Administered Medications (Trade) Dose Ordered Sig/Scott Route Start Time Stop Time Status Last Admin Dose Admin Sodium Chloride (Nss 500ml) 500 ml @ 999 mls/hr Q31M STAT IV 12/21/16 10:32 12/21/16 11:02 DC 12/21/16 10:32 999 MLS/HR Hydromorphone HCl (Dilaudid Inj) 0.5 mg NOW STAT IV 12/21/16 10:32 12/21/16 10:34 DC 12/21/16 11:14 0.5 MG Ondansetron HCl (Zofran Inj) 4 mg NOW STAT IV 12/21/16 10:32 12/21/16 10:34 DC 12/21/16 11:13 4 MG Hydromorphone HCl (Dilaudid Inj) 0.5 mg NOW STAT IV 12/21/16 11:46 12/21/16 11:47 DC 12/21/16 11:56 0.5 MG Hydromorphone HCl (Dilaudid Inj) 1 mg Q3H PRN IV 12/21/16 14:03 01/04/17 14:02 12/21/16 23:59 1 MG ECG Indication: abdominal pain Rate (beats per minute): 87 Rhythm: normal sinus Findings: no acute ischemic change, no ectopy, other (normal EKG) ED Course 1024: Past medical records reviewed. The patient was evaluated in room A12a. A complete history and physical examination was performed. 1032: Zofran 4 mg IV, Dilaudid 0.5 mg IV, NSS 500 ml @ 999 mls/hr. 1146: Dilaudid 0.5 mg IV. 1310: The patient would like to be admitted for pain control. 1320: [facility] The patient will be [facility]. Medical Decision Differential diagnosis: Etiologies such as appendicitis, diverticulitis, PUD, biliary pathology, UTI, pancreatitis, obstruction, mesenteric ischemia, aortic pathology, infections, inflammatory bowel disease, renal colic, as well as others were entertained. This is a 71-year-old male who presents to the emergency Department with metastatic prostate cancer. The patient is complaining of pain to his back and his abdomen. Patient reports the pain is become more severe and he cannot get his pain under control at home. In the emergency department the patient is given normal saline bolus as well as Dilaudid 2. Serial abdominal examinations were performed on the patient in the emergency department and at no time did he exhibit a surgical abdomen. Based on these findings I felt the patient can be safely discharged home. Patient was in agreement with the treatment plan. Consults Time Called: 1310 Consulting Physician: Dr. Matute [facility]. Returned Call: 1320 1320: Spoke with Dr. Matute [facility]. The patient will be evaluated. Impression Primary Impression: Intractable pain Scribe Attestation The scribe's documentation has been prepared under my direction and personally reviewed by me in its entirety. I confirm that the note above accurately reflects all work, treatment, procedures, and medical decision making performed by me. Departure Information Dispostion Being Evaluated By Hospitalist Referrals Jose Antonio Brock M.D. (PCP) Patient Instructions My [facility]
[2016-12-21] MEDS ORDERED: OPTIRAY 320 IV PRN (10:45)
[2016-12-21 10:48] LABS: BASO % 0.4 %; BASO ABS # 0.02 K/uL (0-0.2); COMPLETE YES; EOS % 3.5 %; HEMATOCRIT 32.4 % (42-52); IG% 0.2 %; LYMPH % 12.4 %; MEAN CELL VOLUME 94.7 fL (80-100); MEAN CORPUSCULAR HEMOGLOBIN 31.3 pg (25-34); MEAN PLATELET VOLUME 9.1 fL (7.4-10.4); MONO % 4.8 %; NEUT % 78.7 %; PLATELET COUNT 168 K/uL (130-400); RED BLOOD COUNT 3.42 M/uL (4.7-6.1); WHITE BLOOD COUNT 5.65 K/uL (4.8-10.8)
[2016-12-21 11:12] LABS: BUN/CREATININE RATIO 16.5 (10-20); CALCIUM 8.4 mg/dl (8.5-10.1); CREATININE 0.71 mg/dl (0.60-1.40); POTASSIUM 3.4 mmol/L (3.5-5.1)
[2016-12-21 11:15] LABS: ISTAT CREATININE 0.6 mg/dl (0.6-1.3); ISTAT HEMOGLOBIN 11.2 g/dl (14.0-18.0); ISTAT IONIZED CALCIUM 1.17 mmol/l (1.12-1.32)
[2016-12-21 11:27] LABS: URINE APPEARANCE CLEAR (CLEAR); URINE BILIRUBIN NEG (NEG); URINE COLOR DK YELLOW; URINE NITRITE NEG (NEG); URINE SPECIFIC GRAVITY 1.025 (1.000-1.030); UROBILINOGEN NEG (NEG)
[2016-12-21 11:28] LABS: MANUAL MICROSCOPIC REQUIRED? NO; REVIEW REQ? NO
[2016-12-21] MEDS ORDERED: METOCLOPRAMIDE HCL INJ 5 MG/ML 2 ML VIAL IV STA (11:46)
--- NOTE | 2016-12-21 11:56 | DIAGNOSTIC IMAGING REPORT ---
ABDOMEN AND PELVIS CT WITH IV CONTRAST CT DOSE: 386.83 mGycm HISTORY: Pain Pt c/o diffuse abd and back pain TECHNIQUE: Multiaxial CT images of the abdomen and pelvis were performed following the use of intravenous contrast. COMPARISON STUDY: 11/27/2016 FINDINGS: Mildly progressive hepatic metastatic disease. Mild increase in size and number of multiple metastatic deposits. Necrotic para-aortic adenopathy is moderately progressive. This para-aortic component maximum dimension has increased from 4. 6to5.1 cm maximum transaxial dimension. There are several additional nodes in left perinephric space. Largest measures 1.6 cm medial to the left renal hilum. Slightly progressive left renal periaortic infiltrative small ventral hernia containing a short segment of small bowel. This is a nonobstructive finding but potentially is incarcerated. This was present previously. Bowel pattern remains nonobstructive. Radioactive seeds again noted within the prosthetic bed. Blastic bony metastatic change unaltered from the prior study. Change. IMPRESSION: 1. Moderately progressive hepatic metastatic change compared to the prior study. 2. Mildly progressive left renal perinephric and perirenal philly change. 3. Stable to slightly increased partially necrotic periaortic adenopathy. 4. Nonobstructive bowel pattern. 5. Stable blastic metastatic change. 6. Study overall is consistent with that of progressive metastatic neoplastic change Electronically signed by: Dwight Ziegler M.D. 12/21/2016 11:55 AM Dictated Date/Time: 12/21/2016 11:44 AM
--- NOTE | 2016-12-21 12:03 | DIAGNOSTIC IMAGING REPORT ---
CT LUMBAR SPINE WITHOUT CT DOSE: CLINICAL HISTORY: Severe low back pain TECHNIQUE: Helical images were acquired in transverse plane. Reformatted sagittal and coronal images were reviewed. CONTRAST: No contrast was administered COMPARISON STUDY: None. FINDINGS: L1-2 level: There is no evidence of significant disc bulge or focal herniation. There is no evidence of spinal or foraminal stenosis. L2-3 level: There is a circumferential disc bulge with mild spinal stenosis. There is no significant foraminal narrowing. L3-4 level: There is a circumferential disc bulge with moderate spinal stenosis. There is moderate right-sided foraminal narrowing and mild left-sided foraminal narrowing L4-5 level: There is a mild circumferential disc bulge. There is minor spinal stenosis. There is moderate right-sided foraminal narrowing and mild left-sided foraminal narrowing L5-S1 level: No focal herniations are visualized. There is no spinal stenosis. There is bilateral foraminal stenosis. There are scattered blastic lesions within the sacrum and iliac bones, suspicious for blastic metastasis. There is pathologic retroperitoneal adenopathy IMPRESSION: 1. Sclerotic bone lesions, consistent with blastic metastasis 2. No acute fractures or traumatic subluxations 3. Multilevel spondylitic changes with multilevel foraminal narrowing, and moderate spinal stenosis at the L3-4 level. 4. Pathologic retroperitoneal adenopathy. Electronically signed by: Orlando Mccullough M.D. 12/21/2016 12:01 PM Dictated Date/Time: 12/21/2016 11:57 AM
[2016-12-21 13:38] VITALS: O2SAT 95
[2016-12-21 14:13] VITALS: BP 167/90; TEMP 36.7; Ht 167.6 cm; Wt 66.7 kg
[2016-12-21] MEDS ORDERED: ACETAMINOPHEN 325 MG TAB PO PRN (14:15)
[2016-12-21] MEDS ORDERED: PROMETHAZINE HCL INJ 12.5 MG in SODIUM CHLORIDE 0.9% 50ML 50 ML IV PRN (14:15)
--- NOTE | 2016-12-21 14:24 | History and Physical ---
History & Physical Date & Time of Service: Dec 21, 2016 at 14:10 Chief Complaint: Severe Abd/Back Pain - Dx: Stage 4 Cancer Primary Care Physician: Jose Antonio Brock M.D. History of Present Illness Source: patient, family, clinic records, hospital records This patient is a pleasant 71-year-old male with a history of metastatic prostate cancer that presents emergency department complaining of a severe dull , aching lower abdominal pain particularly over the last day. He is also complaining of intermittent low back pain that does not radiate anywhere. The patient is currently undergoing chemotherapy for metastatic prostate cancer. He has metastases to the liver and bone. He finished an Optiva infusion yesterday. He says the pain in his abdomen became severe following that. He also is complaining of mild nausea. He took a Phenergan before arrival, which seemed to help with the symptoms. His appetite has been poor. He denies any significant changes in his bowel habits. He has no urinary complaints. No fever or chills. Denies any shortness of breath or chest pain. He is overall weak. Of note, pt was admitted to the hospital in Nov 15 for upper GI bleed-no further signs of dark/bloody stools Past Medical/Surgical History Medical Problems: Metastatic prostate cancer to liver and bone Remote history of colon cancer status post hemicolectomy History of small bowel adenocarcinoma Upper GI bleed diagnosed in October 2016 Gout Family History FH: GI cancer Social History Smoking Status: Never Smoker Drug Use: none Marital Status: Housing status: lives with significant other Immunizations History of Influenza Vaccine: Yes Influenza Vaccine Date: Nov 12, 2013 History of Tetanus Vaccine?: utd Tetanus Immunization Date: Nov 12, 2013 History of Pneumococcal: Yes Pneumococcal Date: Nov 12, 2013 History of Hepatitis B Vaccine: No Multi-Drug Resistant Organisms History of MDRO: No Allergies Coded Allergies: No Known Allergies (Unverified , 12/21/16) Home Medications Scheduled Allopurinol (Zyloprim), 100 MG PO BID Colesevelam (Welchol), 625 MG PO TID Gabapentin (Gabapentin), 600 MG PO QID Leuprolide Acetate (Lupron Depot), 30 MG IM [id number] Pantoprazole (Protonix), 40 MG PO DAILY Prednisone (Prednisone), 5 MG PO DAILY Tamsulosin Hcl (Flomax), 0.4 MG PO QPM Tapentadol Hcl (Nucynta Er), 1 TAB PO BID Scheduled PRN Hydromorphone Hcl (Dilaudid), 4 TAB PO DAILY PRN for Pain Tapentadol Hcl (Nucynta), 75 MG PO DAILY PRN for Pain Review of Systems 10 system review performed and negative unless noted in HPI or below Physical Exam Vital Signs Date Time Temp Pulse Resp B/P Pulse Ox O2 Delivery O2 Flow Rate FiO2 12/21/16 13:38 67 18 167/90 95 Room Air 12/21/16 12:02 67 12/21/16 11:46 70 17 141/78 95 12/21/16 11:18 74 16 126/74 96 Room Air 12/21/16 09:37 36.7 81 18 103/60 97 Room Air General Appearance: + mild distress (depressed affect noted) Head: normocephalic Eyes: EOMI ENT: + pertinent finding (oral mucosa dry) Neck: no JVD Respiratory/Chest: lungs clear Cardiovascular: regular rate, rhythm Abdomen/GI: soft, + tenderness (diffuse tenderness to palpation particularly in the right upper quadrant and right lower quadrant. No guarding or rebound tenderness.), + pertinent finding (bowel sounds hyperactive) Back: + pertinent finding (mild tenderness to palpation noted over the lumbar spinous processes) Extremities/Musculoskelatal: no calf tenderness, no pedal edema Neurologic/Psych: alert, oriented x 3 Skin: warm/dry Diagnostics Laboratory Results Results Past 24 Hours Test 12/21/16 10:21 12/21/16 10:40 12/21/16 10:45 12/21/16 11:00 Range/Units White Blood Count 5.65 4.8-10.8 K/uL Red Blood Count 3.42 4.7-6.1 M/uL Hemoglobin 10.7 14.0-18.0 g/dL Hematocrit 32.4 42-52 % Mean Corpuscular Volume 94.7 80-100 fL Mean Corpuscular Hemoglobin 31.3 25-34 pg Mean Corpuscular Hemoglobin Concent 33.0 32-36 g/dl Platelet Count 168 130-400 K/uL Mean Platelet Volume 9.1 7.4-10.4 fL Neutrophils (%) (Auto) 78.7 % Lymphocytes (%) (Auto) 12.4 % Monocytes (%) (Auto) 4.8 % Eosinophils (%) (Auto) 3.5 % Basophils (%) (Auto) 0.4 % Neutrophils # (Auto) 4.45 1.4-6.5 K/uL Lymphocytes # (Auto) 0.70 1.2-3.4 K/uL Monocytes # (Auto) 0.27 0.11-0.59 K/uL Eosinophils # (Auto) 0.20 0-0.5 K/uL Basophils # (Auto) 0.02 0-0.2 K/uL RDW Standard Deviation 48.8 36.4-46.3 fL RDW Coefficient of Variation 13.9 11.5-14.5 % Immature Granulocyte % (Auto) 0.2 % Immature Granulocyte # (Auto) 0.01 0.00-0.02 K/uL Sodium Level 140 136-145 mmol/L Potassium Level 3.4 3.5-5.1 mmol/L Chloride Level 105 98-107 mmol/L Carbon Dioxide Level 28 21-32 mmol/L Anion Gap 7.0 18.0 16-25 mmol/L Blood Urea Nitrogen 12 7-18 mg/dl Creatinine 0.71 0.60-1.40 mg/dl Est Creatinine Clear Calc Drug Dose 86.1 ml/min Estimated GFR () 109.4 Estimated GFR (Non- 94.4 BUN/Creatinine Ratio 16.5 10-20 Random Glucose 90 70-99 mg/dl Calcium Level 8.4 8.5-10.1 mg/dl Total Bilirubin 0.3 0.2-1 mg/dl Direct Bilirubin 0.1 0-0.2 mg/dl Aspartate Amino Transf (AST/SGOT) 24 15-37 U/L Alanine Aminotransferase (ALT/SGPT) 17 12-78 U/L Alkaline Phosphatase 63 45-117 U/L Total Protein 6.6 6.4-8.2 gm/dl Albumin 3.4 3.4-5.0 gm/dl Lipase 46 73-393 U/L Urine Color DK YELLOW Urine Appearance CLEAR CLEAR Urine pH 5.0 4.5-7.5 Urine Specific Higginson 1.025 1.000-1.030 Urine Protein 1+ NEG Urine Glucose (UA) NEG NEG Urine Ketones NEG NEG Urine Occult Blood NEG NEG Urine Nitrite NEG NEG Urine Bilirubin NEG NEG Urine Urobilinogen NEG NEG Urine Leukocyte Esterase NEG NEG Urine WBC (Auto) 1-5 0-5 /hpf Urine RBC (Auto) 0-4 0-4 /hpf Urine Hyaline Casts (Auto) 1-5 0-5 /lpf Urine Epithelial Cells (Auto) 5-10 0-5 /lpf Urine Bacteria (Auto) NEG NEG Bedside Lactic Acid Venous 1.05 0.90-1.70 mmol/L Bedside Hemoglobin 11.2 14.0-18.0 g/dl Bedside Hematocrit 33 42-52 % Bedside Sodium 139 135-144 mEq/L Bedside Potassium 3.4 3.3-5.0 mEq/L Bedside Chloride 99 101-112 mEq/L Bedside Total CO2 26 24-31 mEq/l Bedside Blood Urea Nitrogen 12 7-18 mg/dl Bedside Creatinine 0.6 0.6-1.3 mg/dl Bedside Glucose (other) 97 70-99 mg/dl Bedside Ionized Calcium (Bernice) 1.17 1.12-1.32 mmol/l Microbiology Results 12/21/16 Blood Culture, Received Pending 12/21/16 Blood Culture, Received Pending Diagnostic Radiology Patient: YOHANNES BEASLEY Address1: [address] [facility] Rec: [id number] Address2: Acct ID: [id number] [facility] Zip: [place] [address] Date: 1945 Sex: M Room/Bed: Ref Phy: Jose Antonio Brock M.D. SC: QUITA Hollins Phy: Report #: [id number] Chani Phy: Jose Antonio Brock M.D. Test: LSWO Admit Phy: Store Person: PARAS Interpreting Phy: Orlando Mccullough M.D. Diagnosis: SEVERE ABD/BACK PAIN - DX: STAGE 4 CANCER Ordering Phy: Robbi Swanson MD Service Date: 12/21/16 Admit Date: 12/21/16 MNE: PWRSCRIBE CONF: DICTATED BY: Orlando Mccullough M.D.]] CC: Robbi Swanson MD Pandolph, Stephen J., M.D. Endcc: [~ rep ct add3]] CT LUMBAR SPINE WITHOUT CT DOSE: CLINICAL HISTORY: Severe low back pain TECHNIQUE: Helical images were acquired in transverse plane. Reformatted sagittal and coronal images were reviewed. CONTRAST: No contrast was administered COMPARISON STUDY: None. FINDINGS: L1-2 level: There is no evidence of significant disc bulge or focal herniation. There is no evidence of spinal or foraminal stenosis. L2-3 level: There is a circumferential disc bulge with mild spinal stenosis. There is no significant foraminal narrowing. L3-4 level: There is a circumferential disc bulge with moderate spinal stenosis. There is moderate right-sided foraminal narrowing and mild left-sided foraminal narrowing L4-5 level: There is a mild circumferential disc bulge. There is minor spinal stenosis. There is moderate right-sided foraminal narrowing and mild left-sided foraminal narrowing L5-S1 level: No focal herniations are visualized. There is no spinal stenosis. There is bilateral foraminal stenosis. There are scattered blastic lesions within the sacrum and iliac bones, suspicious for blastic metastasis. There is pathologic retroperitoneal adenopathy IMPRESSION: 1. Sclerotic bone lesions, consistent with blastic metastasis 2. No acute fractures or traumatic subluxations 3. Multilevel spondylitic changes with multilevel foraminal narrowing, and moderate spinal stenosis at the L3-4 level. 4. Pathologic retroperitoneal adenopathy. Electronically signed by: Orlando Mccullough M.D. 12/21/2016 12:01 PM Dictated Date/Time: 12/21/2016 11:57 AM The status of this report is Signed. Draft = Not yet reviewed or approved by Radiologist. Signed = Reviewed and approved by Radiologist. <AttendingPhy></AttendingPhy> <FamilyPhy>Jose Antonio Brock M.D.</FamilyPhy> < PrimaryPhy>Jose Antonio Brock M.D.</PrimaryPhy> <UnitNumber>[id number]</ UnitNumber> <VisitNumber>[id number]</Vis Patient Name: YOHANNES BEASLEY Unit Number: [id number] Dictated: 12/21/161143 Transcribed: 12/21/16 114 MS Printed Date/Time: [~ rep prt dt]/[~ rep prt tm] [~ rep ct labl] - [~ rep ct ivnm] [facility] [place] [address] Dictated: 12/21/16 1144 Transcribed: 12/21/16 1144 MS Printed Date/Time: [~ rep prt dt]/[~ rep prt tm] [~ rep ct labl] - [~ rep ct ivnm] Patient: YOHANNES BEASLEY Address1: [address] [facility] Rec: [id number] Address2: Acct ID: [id number] [facility] Zip: [place] [address] Date: 1945 Sex: M Room/Bed: Ref Phy: Jose Antonio Brock M.D. SC: QUITA Att Phy: Report #: [id number] Chani Phy: Jose Antonio Brock M.D. Test: APIV Admit Phy: Store Person: PARAS Interpreting Phy: Dwight Ziegler M.D. Diagnosis: SEVERE ABD/BACK PAIN - DX: STAGE 4 CANCER Ordering Phy: Robbi Swanson MD Service Date: 12/21/16 Admit Date: 12/21/16 MNE: PWRSCRIBE CONF: DICTATED BY: Dwight Ziegler M.D.]] CC: Robbi Swanson MD Pandolph, Stephen J., M.D. Endcc: [~ rep ct add3]] ABDOMEN AND PELVIS CT WITH IV CONTRAST CT DOSE: 386.83 mGycm HISTORY: Pain Pt c/o diffuse abd and back pain TECHNIQUE: Multiaxial CT images of the abdomen and pelvis were performed following the use of intravenous contrast. COMPARISON STUDY: 11/27/2016 FINDINGS: Mildly progressive hepatic metastatic disease. Mild increase in size and number of multiple metastatic deposits. Necrotic para-aortic adenopathy is moderately progressive. This para-aortic component maximum dimension has increased from 4. 6to5.1 cm maximum transaxial dimension. There are several additional nodes in left perinephric space. Largest measures 1.6 cm medial to the left renal hilum. Slightly progressive left renal periaortic infiltrative small ventral hernia containing a short segment of small bowel. This is a nonobstructive finding but potentially is incarcerated. This was present previously. Bowel pattern remains nonobstructive. Radioactive seeds again noted within the prosthetic bed. Blastic bony metastatic change unaltered from the prior study. Change. IMPRESSION: 1. Moderately progressive hepatic metastatic change compared to the prior study. 2. Mildly progressive left renal perinephric and perirenal philly change. 3. Stable to slightly increased partially necrotic periaortic adenopathy. 4. Nonobstructive bowel pattern. 5. Stable blastic metastatic change. 6. Study overall is consistent with that of progressive metastatic neoplastic change Electronically signed by: Dwight Ziegler M.D. 12/21/2016 11:55 AM Dictated Date/Time: 12/21/2016 11:44 AM The status of this report is Signed. Draft = Not yet reviewed or approved by Radiologist. Signed = Reviewed and approved by Radiologist. <AttendingPhy></AttendingPhy> <FamilyPhy>Jose Antonio Brock M.D.</FamilyPhy> < PrimaryPhy>Jose Antonio Brock M.D.</PrimaryPhy> <UnitNumber>[id number]</ UnitNumber> <VisitNumber>[id number]</VisitNumber> <PatientName>YOHANNES BEASLEY Ethan< /PatientName> <DateOfBirth>1945</DateOfBirth> <Location>C.CRISTIAN[facility]</Location> < ServiceDate>12/21/16</ServiceDate> <MNE>ESINDI</MNE> <OrderingPhy>Robbi Swanson MD</OrderingPhy> <OrderingPhyMNE>f rep ord dr hardy</OrderingPhyMNE> < DictatingPhyMNE>f rep dict dr hardy</DictatingPhyMNE> <CCListMNE>f rep ct kendrae</ CCListMNE> <AdmittingPhyMNE>f pt admit dr hardy</AdmittingPhyMNE> <AttendingPhyMNE >f pt attend dr hardy</AttendingPhyMNE> <ConsultingPhyMNE>f pt consult dr hardy</ConsultingPhyMNE> <FamilyPhyMNE>f pt fam dr hardy</FamilyPhyMNE> <OtherPhyMNE>f pt other dr hardy</OtherPhyMNE> < PrimaryPhyMNE>f pt prim care dr hardy</PrimaryPhyMNE> <ReferringPhyMNE>f pt referring dr hardy</ReferringPhyMNE> Impression Assessment and Plan 71-year-old male presenting to the emergency department with intractable lower abdominal pain and back pain secondary to metastatic prostate cancer. Intractable pain -Observe in Oncology -d/c Nucynta ER -begin fentanyl patch 50 g -Dilaudid 1 mg IV every 3 hours as needed for breakthrough pain -Consider lidocaine patch for back pain Nausea -Alternating Zofran 4 mg IV with Phenergan 12.5 mg IV every 6 hours as needed Metastatic prostate CA-progressing despite chemotherapy -f/u with Dr. Telles to discuss goals of treatment GERD/recent upper GI bleed-no recent dark stools -Continue Protonix 40 mg daily -Continue Carafate 10 mL QID Neuropathy -continue Gabapentin 600 mg TID DVT prophylaxis -Lovenox 40 mg subQ daily -TEDS, SCDs CODE STATUS -LEVEL V DO NO RESUSCITATE i personally examined pt and verified all parkinson points w A [facility] PAC pain - doing better since IV meds, PO meds at home weren't helping vitals noted, breathing unlabored, no pallor or icterus metastatic prostate cancer w intractable pain -fentanyl, IV dilauded - work towards PO regimen -palliative care consult Level of Care Oncology Resuscitation Status DO NOT RESUSCITATE VTE Prophylaxis VTE Risk Assessment Done? Y/N: Yes Risk Level: Moderate Given or contraindicated: Enoxaparin (Lovenox)SQ, T.E.D. Stockings, SCD's
[2016-12-21] MEDS ORDERED: HYDROmorphone INJ 1 MG/ML SYR IV SCH (14:30)
[2016-12-21 16:00] VITALS: BP 160/77; PULSE 88; TEMP 36.9; O2SAT 95
[2016-12-21] MEDS ORDERED: FENTANYL 50 MCG/HR TDSY TD SCH (16:30)
[2016-12-21] MEDS: LIDODERM (LIDOCAINE) PATCH 5% TD SCH (17:34)
[2016-12-21] MEDS: HYDROmorphone INJ 1 MG/ML SYR IV PRN ×3 (17:38→23:59)
[2016-12-21] MEDS: GABAPENTIN 600 MG TAB PO SCH ×2 (18:10→20:26)
[2016-12-21 19:14] VITALS: BP 149/82; PULSE 78; TEMP 36.9; O2SAT 96
[2016-12-21] MEDS: ENOXAPARIN 40 MG/0.4 ML SYR SQ SCH (20:27)
[2016-12-21] MEDS: ALLOPURINOL 100 MG TAB PO SCH (20:27)
[2016-12-21] MEDS: TAMSULOSIN HCL 0.4 MG CAP PO SCH (20:27)
[2016-12-21] MEDS ORDERED: IV FLUIDS COMPLETED PRN (20:30)
[2016-12-21] MEDS: COLESEVELAM 625 MG TAB PO SCH (20:35)
[2016-12-21] MEDS: ONDANSETRON INJ 2 MG/ML 2 ML VIAL IV PRN (23:59)
[2016-12-22] VITALS (7 sets, daily range): BP systolic 109–162; BP diastolic 63–82; PULSE 72–84; TEMP 36.4–37.1; O2SAT 95–99
[2016-12-22] MEDS: CHECK FENTANYL PATCH PLACEMENT SCH ×3 (00:02→16:01)
[2016-12-22] MEDS: ALLOPURINOL 100 MG TAB PO SCH ×2 (07:39→20:09)
[2016-12-22] MEDS: GABAPENTIN 600 MG TAB PO SCH ×4 (07:40→20:09)
[2016-12-22] MEDS: PANTOprazole SOD 40 MG TAB PO SCH (07:40)
[2016-12-22] MEDS: COLESEVELAM 625 MG TAB PO SCH ×3 (07:40→20:09)
[2016-12-22] MEDS: LIDODERM (LIDOCAINE) PATCH 5% TD SCH ×2 (07:41→18:00)
[2016-12-22] MEDS ORDERED: NURSING VERBAL MED ORDER ONE ×2 (13:00→18:00)
--- NOTE | 2016-12-22 13:07 | Palliative Care Consultation ---
Consultation Date of Consultation: Dec 22, 2016. Requesting Physician: Mayela Tatum PA-C Attending Physician: Dr. Hand Reason for Consultation: Goals of care History of Present Illness This 71 year old male patient presented to the ED last evening with complaints of severe back and abdominal pain. He was a diagnosis of metastatic prostate cancer and is currently undergoing treatment. He states he had an infusion of Opdivo the day prior to admission and it was after the infusion that he began to have severe abdominal pain accompanied by nausea as well as back pain. This was the first time he experienced back pain. Patient came to the ED and had a CT of the abd/pelvis which showed, "1. Moderately progressive hepatic metastatic change compared to the prior study. 2. Mildly progressive left renal perinephric and perirenal philly change. 3. Stable to slightly increased partially necrotic periaortic adenopathy. 4. Nonobstructive bowel pattern. 5. Stable blastic metastatic change. 6. Study overall is consistent with that of progressive metastatic neoplastic change." Also had a CT of lumbar spine which showed, "1. Sclerotic bone lesions, consistent with blastic metastasis 2. No acute fractures or traumatic subluxations 3. Multilevel spondylitic changes with multilevel foraminal narrowing, and moderate spinal stenosis at the L3-4 level. 4. Pathologic retroperitoneal adenopathy." Despite treatment, patient's disease is progressing with new bony metastases. Palliative care consulted to discuss goals of care. I met with the patient, his /JENNIFER Vasques, and patient's son. Patient states that he has had issues with pain for quite some time, but initially it was a "pinched nerve" in left left side, and used to see pain management. He was discharged from pain management and it is now being managed by his PCP, Dr. Brock. He is currently on Nucynta ER and Dilaudid 4mg PO QID PRN for breakthrough pain. He also takes Gabapentin 600mg QID. On admission, patient was started on fentanyl patch 50mcg/hr Q72h and had three doses of Dilaudid 1mg IV. Has not received hydromorphone since last night and he is feeling much better. He states to me that his pain is a 1/10 and described it as, "a soreness down here in the bottom of my stomach." Patient states that he was told by someone last night that the abdominal pain may be coming from the metastasis to his liver. He also said that he knew his cancer "has spread to the bones." We discussed goals of care. He has already completed advance directive that states in an end-stage medical condition he would not want aggressive measures and he has decided that he is a DNR/DNI. However, he is still pursuing life- prolonging cancer treatment at this time. He has a good quality of life at home with his and is completely independent with his care. He would like to follow up with Dr. Telles after discharge to discuss the new findings on imaging and talk about whether or not he will continue the Opdivo. He states that his symptoms are well-controlled at this point and he has no needs at home. Past Medical/Surgical History Medical History: Metastatic prostate cancer History of small bowel carcinoma s/p hemicolectomy GERD Neuropathy Upper GI bleed October 2016 Gout Surgical History: Hemicolectomy Social History Smoking Status: Never Smoker History of Alcohol Use: No Drug Use: none Marital Status: Housing Status: lives with significant other Review of Systems Constitutional: + weight loss (10lb in last three months. Decreased appetite), No chills, No fever, No weakness Respiratory: No cough, No dyspnea at rest, No dyspnea on exertion, No shortness of breath Cardiac: No edema, No palpitations Abdomen: + nausea, + pain, No vomiting Male : No problem reported Psychiatric: No anxiety, No depression symptoms Allergies Coded Allergies: No Known Allergies (Unverified , 12/21/16) Medications Current Inpatient Medications Medications (Trade) Dose Ordered Sig/Scott Route Start Time Stop Time Status Last Admin Dose Admin Ioversol (Optiray 320) 125 ml UD PRN IV 12/21/16 10:45 12/25/16 10:44 Hydromorphone HCl (Dilaudid Inj) 1 mg Q3H PRN IV 12/21/16 14:03 01/04/17 14:02 12/21/16 23:59 1 MG Fentanyl 50 mcg 50 mcg Q72H TD 12/21/16 16:30 01/04/17 16:29 12/21/16 17:36 50 MCG Promethazine HCl/ Sodium Chloride (Phenergan Inj/ Nss 50ml) 50.5 ml @ 204 mls/hr Q6H PRN IV 12/21/16 14:15 01/20/17 14:14 Enoxaparin Sodium (Lovenox Inj) 40 mg QPM SQ 12/21/16 21:00 01/20/17 20:59 12/21/16 20:27 40 MG Acetaminophen (Tylenol Tab) 650 mg Q4H PRN PO 12/21/16 14:15 01/20/17 14:14 Ondansetron HCl (Zofran Inj) 4 mg Q6H PRN IV 12/21/16 14:15 01/20/17 14:14 12/21/16 23:59 4 MG Allopurinol (Zyloprim Tab) 100 mg BID PO 12/21/16 20:00 01/20/17 20:59 12/22/16 07:39 100 MG Gabapentin (Neurontin Tab) 600 mg QID PO 12/21/16 17:00 01/20/17 16:59 12/22/16 07:40 600 MG Pantoprazole Sodium (Protonix Tab) 40 mg DAILY PO 12/22/16 08:00 01/21/17 08:59 12/22/16 07:40 40 MG Prednisone (PredniSONE TAB) 5 mg DAILY PO 12/22/16 08:00 01/21/17 08:59 12/22/16 07:40 5 MG Tamsulosin HCl (Flomax Cap) 0.4 mg QPM PO 12/21/16 21:00 01/20/17 20:59 12/21/16 20:27 0.4 MG Colesevelam HCl (Welchol) 625 mg TID PO 12/21/16 20:00 01/20/17 20:59 12/22/16 07:40 625 MG Lidocaine (Lidoderm Patch 5%) 1 patch QAM TD 12/21/16 14:30 01/20/17 14:29 12/22/16 07:41 1 PATCH Miscellaneous (Remove Lidoderm Patch) 1 ea DAILY@21 N/A 12/21/16 21:00 01/20/17 20:59 12/21/16 20:28 1 EA Miscellaneous (Fentanyl Patch Remove & Waste) 1 ea Q3D@1629 N/A 12/24/16 16:29 01/23/17 16:28 Miscellaneous Information (Check Fentanyl Patch Placement) 1 ea QS N/A 12/22/16 00:00 01/21/17 00:00 12/22/16 07:41 1 EA Miscellaneous (Iv Fluids Completed) 1 ea PRN PRN N/A 12/21/16 20:30 12/21/17 20:29 Physical Exam Date Time Temp Pulse Resp B/P Pulse Ox O2 Delivery O2 Flow Rate FiO2 12/22/16 11:17 36.9 84 18 126/75 95 Room Air 12/22/16 10:00 Room Air 12/22/16 07:50 36.8 79 16 137/78 97 Room Air 12/22/16 03:55 36.7 72 18 141/80 95 Room Air 12/22/16 00:16 37.0 75 18 150/80 98 Room Air 12/22/16 00:00 Room Air 12/21/16 20:00 Room Air 12/21/16 19:14 36.9 78 20 149/82 96 Room Air 12/21/16 16:00 36.9 88 16 160/77 95 Room Air 12/21/16 14:13 36.7 18 167/90 Room Air 12/21/16 13:38 67 18 167/90 95 Room Air General Appearance: no apparent distress Neck: no JVD Respiratory: normal breath sounds, no respiratory distress, no accessory muscle use Cardiovascular: regular rate, rhythm, no edema, + normal peripheral pulses Abdomen: normal bowel sounds, non tender, soft Neurologic/Psychiatric: alert, normal mood/affect, oriented x 3 Skin: normal color Assessment & Plan Palliative Performance Scale: 80 % (decreased appetite and recent weight loss) Problem list: Pain, abdominal and back Nausea Metastatic prostate cancer Goals of care (Z51.5) Palliative care plan: -Home with no services at this time. -Goal is to continue life-prolonging treatment if indicated. Patient would like to follow up with Dr. Telles's office after discharge to discuss options. Patient's focus is on quality of life. -Continue fentanyl patch 50mcg/hr Q72. Has Dilaudid 4mg PO QID PRN pain for breakthrough pain -Continue lidoderm patch Thank you kindly for this consult. I have no further recommendations at this time. Please contact me if there are any further palliative care needs.
[2016-12-22] MEDS ORDERED: HYDROmorphone HCL 2 MG TAB ONE ×3 (13:09→14:40)
--- NOTE | 2016-12-22 13:28 | Progress Note ---
Subjective Date of Service: Dec 22, 2016. Subjective Pt evaluation today including: conversation w/ patient, physical exam, chart review, lab review, review of studies, review of inpatient medication list Problem List Medical Problems: (1) Anemia Status: Acute (2) Failure of outpatient treatment Status: Acute (3) Gastrointestinal bleeding Status: Acute (4) GI malignancy Status: Acute (5) Intractable abdominal pain Status: Acute (6) Intractable pain Status: Acute (7) Metastasis Status: Acute (8) Neutropenia Status: Acute (9) Renal colic Status: Acute (10) Urinary tract infection Status: Acute (11) Vomiting Status: Acute Review of Systems Constitutional: No chills, No fever Respiratory: No cough, No dyspnea on exertion, No shortness of breath, No sputum, No wheezing Cardiac: No PND, No chest pain, No edema, No orthopnea Abdomen: No constipation, No diarrhea, No nausea, No pain, No vomiting Musculoskeletal: + joint pain, + muscle pain Male : No dysuria, No urinary frequency Objective Vital Signs Date Time Temp Pulse Resp B/P Pulse Ox O2 Delivery O2 Flow Rate FiO2 12/22/16 11:17 36.9 84 18 126/75 95 Room Air 12/22/16 10:00 Room Air 12/22/16 07:50 36.8 79 16 137/78 97 Room Air 12/22/16 03:55 36.7 72 18 141/80 95 Room Air 12/22/16 00:16 37.0 75 18 150/80 98 Room Air 12/22/16 00:00 Room Air 12/21/16 20:00 Room Air 12/21/16 19:14 36.9 78 20 149/82 96 Room Air 12/21/16 16:00 36.9 88 16 160/77 95 Room Air 12/21/16 14:13 36.7 18 167/90 Room Air 12/21/16 13:38 67 18 167/90 95 Room Air Physical Exam General Appearance: WD/WN, no apparent distress Neck: supple, no adenopathy Respiratory/Chest: chest non-tender, lungs clear, normal breath sounds Cardiovascular: no edema, no gallop Abdomen: non tender, soft Neurologic/Psychiatric: alert, oriented x 3 Assessment and Plan 71-year-old male presenting to the emergency department with intractable lower abdominal pain and back pain secondary to metastatic prostate cancer. Intractable pain -Observe in Oncology -d/c Nucynta ER -cont fentanyl patch 50 g -restart dilaudid POas needed for breakthrough pain -consider lidocaine patch for back pain -palliative care consult Nausea -Alternating Zofran 4 mg IV and Phenergan 12.5 mg IV every 6 hours as needed Metastatic prostate CA-progressing despite chemotherapy -f/u with Dr. Telles to discuss goals of treatment GERD/recent upper GI bleed-no recent dark stools -Continue Protonix 40 mg daily -Continue Carafate 10 mL QID Neuropathy -continue Gabapentin 600 mg TID DVT prophylaxis -Lovenox 40 mg subQ daily -TEDS, SCDs CODE STATUS -LEVEL V DO NO RESUSCITATE
[2016-12-22] MEDS: ONDANSETRON INJ 2 MG/ML 2 ML VIAL IV PRN (16:26)
[2016-12-22] MEDS ORDERED: PROMETHAZINE HCL 25 MG TAB ONE (17:05)
[2016-12-22] MEDS ORDERED: PROMETHAZINE HCL 25 MG TAB PO PRN (19:45)
[2016-12-22] MEDS: HYDROmorphone HCL 2 MG TAB PO PRN ×2 (20:07→20:51)
[2016-12-22] MEDS: TAMSULOSIN HCL 0.4 MG CAP PO SCH (20:09)
[2016-12-22] MEDS: ENOXAPARIN 40 MG/0.4 ML SYR SQ SCH (20:48)
[2016-12-23] MEDS: CHECK FENTANYL PATCH PLACEMENT SCH ×2 (00:27→08:47)
[2016-12-23 03:45] VITALS: BP 135/80; PULSE 73; TEMP 36.7; O2SAT 99
[2016-12-23 07:43] VITALS: BP 125/73; PULSE 79; TEMP 36.6; O2SAT 96
[2016-12-23] MEDS: COLESEVELAM 625 MG TAB PO SCH (08:46)
[2016-12-23] MEDS: ALLOPURINOL 100 MG TAB PO SCH (08:46)
[2016-12-23] MEDS: PANTOprazole SOD 40 MG TAB PO SCH (08:46)
[2016-12-23] MEDS: LIDODERM (LIDOCAINE) PATCH 5% TD SCH ×2 (08:46→09:56)
[2016-12-23] MEDS: GABAPENTIN 600 MG TAB PO SCH ×2 (08:47→12:00)
[2016-12-23] MEDS: HYDROmorphone HCL 2 MG TAB PO PRN ×2 (08:56→10:15)
[2016-12-23 09:32] VITALS: BP 125/73; PULSE 79; TEMP 36.6; O2SAT 96
[2016-12-23] MEDS ORDERED: LDDP5 TD (11:07)
[2016-12-23] MEDS ORDERED: DRGTP50 TD (11:07)
--- NOTE | 2016-12-23 11:12 | Discharge Instructions ---
Discharge Instructions Admission Reason for Admission: Intractable Pain Discharge Discharge Diagnosis / Problem: Intractable pain Discharge Goals Goal(s): Decrease discomfort, Improve function, Increase independence, Improve disease control, Learn about illness, Diagnostic testing, Therapeutic intervention, Prevent Disease Progression Activity Recommendations Activity Limitations: resume your previous activity Exercise/Sports Limitations: none . Instructions / Follow-Up Instructions / Follow-Up Patient to be discharged home Please continue to take fentanyl patch 50 mcg every 3 days Please continue to take lidoderm patch 5% every day Please continue to take dilaudid 4mg tablet 1-2 pills every 4hrs only as needed Please follow up with Dr. Brock in 1 week Current Hospital Diet Patient's current hospital diet: Regular Diet Discharge Diet Recommended Diet: Regular Diet Pending Studies Studies pending at discharge: no Medical Emergencies . Who to Call and When: Medical Emergencies: If at any time you feel your situation is an emergency, please call 911 immediately. . Non-Emergent Contact Non-Emergency issues call your: Primary Care Provider Call Non-Emergent contact if: your pain is worsening . . "Provider Documentation" section prepared by Howard Hand. VTE Core Measure Inpt VTE Proph given/why not?: Enoxaparin (Lovenox)SQ, T.E.D. Naman, SCD's
[2016-12-23] MEDS ORDERED: NF656 TD (11:34)
[2016-12-23 11:44] VITALS: BP 135/76; PULSE 83; TEMP 36.7; O2SAT 96
[2016-12-23 11:45] VITALS: BP 133/76; PULSE 47; TEMP 36.3; O2SAT 92
[2016-12-23] MEDS ORDERED: FENT75DI2 TD (13:16)
--- NOTE | 2016-12-23 13:29 | Discharge Summary ---
Discharge Summary Date of Service Dec 23, 2016. Discharge Summary Admission Date: Dec 22, 2016 at 10:48 Discharge Date: Dec 23, 2016 Discharge Disposition: Home Principal Diagnosis: Intractable pain Immunizations: Have You Had Influenza Vaccine: Yes Influenza Vaccine Date: Nov 12, 2013 History of Tetanus Vaccine?: utd Tetanus Immunization Date: Nov 12, 2013 History of Pneumococcal: Yes Pneumococcal Date: Nov 12, 2013 History of Hepatitis B Vaccine: No Medication Reconciliation New Medications: Fentanyl (Fentanyl) 75 Mcg/Hr Dis 75 MCG TD CQ72HR, #1 BOX Lidocaine (Lidoderm Patch 5%) 1 Ea Tdsy 2 PATCH TD DAILY, #2 BOX Continued Medications: Allopurinol (Zyloprim) 100 Mg Tab 100 MG PO BID, TAB Colesevelam (Welchol) 625 Mg Tab 625 MG PO TID, TAB Gabapentin (Gabapentin) 600 Mg Tab 600 MG PO QID Hydromorphone Hcl (Dilaudid) 4 Mg Tab 1-2 TAB PO QID MDD 4 for 30 Days, #120 TAB Leuprolide Acetate (Lupron Depot) 30 Mg Kit 30 MG IM [id number] // Pantoprazole (Protonix) 40 Mg Tab 40 MG PO DAILY, #60 Prednisone (Prednisone) 5 Mg Tab 5 MG PO DAILY, #30 Tamsulosin Hcl (Flomax) 0.4 Mg Cap 0.4 MG PO QPM, CAP Discontinued Medications: Tapentadol Hcl (Nucynta Er) 100 Mg Tab 1 TAB PO BID Tapentadol Hcl (Nucynta) 75 Mg Tab 75 MG PO DAILY PRN for Pain, TAB Discharge Exam Review of Systems: Constitutional: No chills, No fever Respiratory: No cough, No sputum Cardiovascular: No chest pain, No orthopnea Abdomen: No nausea, No pain Musculoskeletal: + joint pain, No muscle pain Psychiatric: No anhedonism, No depression symptoms Physical Exam: General Appearance: WD/WN, + mild distress Neck: supple, no adenopathy Cardiovascular: regular rate, rhythm, no edema, no gallop Abdomen / GI: non tender, soft Neurologic/Psychiatric: alert, oriented x 3 Hospital Course 71-year-old male presenting to the emergency department with intractable lower abdominal pain and back pain secondary to metastatic prostate cancer. Intractable pain -Observed in Oncology -d/c Nucynta ER and started on fentanyl patch 50 g and on lidoderm patch -restart dilaudid PO needed for breakthrough pain -Pain controlled and discharged on this regimen Nausea -Alternating Zofran 4 mg IV and Phenergan 12.5 mg IV every 6 hours as needed Metastatic prostate CA-progressing despite chemotherapy -f/u with Dr. Telles to discuss goals of treatment GERD/recent upper GI bleed-no recent dark stools -Continue Protonix 40 mg daily -Continue Carafate 10 mL QID Neuropathy -continue Gabapentin 600 mg TID DVT prophylaxis -Lovenox 40 mg subQ daily -TEDS, SCDs CODE STATUS -LEVEL V DO NO RESUSCITATE Total Time Spent: Greater than 30 minutes This includes examination of the patient, discharge planning, medication reconciliation, and communication with other providers. Discharge Instructions Please refer to the electronic Patient Visit Report (Discharge Instructions) for additional information. Additional Copies To Jose Antonio Brock M.D.
[2016-12-24] MEDS ORDERED: FENTANYL PATCH REMOVE & WASTE SCH (16:29)
[2017-01-14] MEDS ORDERED: FENT75DI2 TOP (12:25)
[2017-01-14] MEDS ORDERED: METO5TAB3 PO (12:25)
[2017-01-14] MEDS ORDERED: HYDR4TAB78 PO (12:25)
[2017-01-14] MEDS ORDERED: LANS30TA3 NG (12:25)
[2017-01-14] MEDS ORDERED: PRED-301 PO (12:25)
[2017-01-14] MEDS ORDERED: GABA1SOL3 PO (12:25)
[2017-01-14] MEDS ORDERED: [UNRECOGNIZED DRUG - CODE] PO (12:25)
[2017-01-14] MEDS ORDERED: ATV5 PO (12:25)
[2017-01-14] MEDS ORDERED: CRFUDL PO (12:26)
[2017-01-14] MEDS ORDERED: ONDA8TAB62 SL (12:26)
[2017-01-14] MEDS ORDERED: LANS30TA3 PO (12:33)
[2017-02-05] MEDS ORDERED: SCOP1DIS14 TD (18:02)
== END 2016-12-23 14:35 | disposition home or self-care (01) | DRG 948 ==
LOC: ENRESERVDT → ENRESERVTM → C.EDB 09:26 → C.4E 14:08 → EDBEDREQSVC 14:19 → OBSVTOIN 12-22 10:48
PROVIDERS: ADMIT Family Medicine; ATTEND Hospitalist
DX: G89.3 Neoplasm related pain (acute) (chronic) (principal); C77.2 Secondary and unspecified malignant neoplasm of intra-abdominal lymph nodes; C78.7 Secondary malignant neoplasm of liver and intrahepatic bile duct; C79.51 Secondary malignant neoplasm of bone; Z85.038 Personal history of other malignant neoplasm of large intestine; M10.9 Gout, unspecified; M48.06 Spinal stenosis, lumbar region; C61 Malignant neoplasm of prostate; K21.9 Gastro-esophageal reflux disease without esophagitis; G62.9 Polyneuropathy, unspecified; Z66 Do not resuscitate; D64.9 Anemia, unspecified

== ENCOUNTER → 2016-12-30 | Outpatient (CLI) | payer BC ==
[~2016-12-30] MED LIST changes: +ALL100 PO; +ATV5 PO; +CRFUDL PO; +DLD2 PO; +DRGTP100 TD; +DRGTP75 TD; +FENT75DI2 TD; +FENT75DI2 TOP; +FLM4 PO; +FNTTP50 TD; +GABA1SOL3 PO; +GADAVIST IV PRN; +HYDR4TAB2 PO; +HYDR4TAB78 PO; +LANS30TA3 NG; +LANS30TA3 PO; +LDDP5 TD; +LORA-741 PO; +METH10TA2 PO; +METO5TAB3 PO; +NF656 TD; +ONDA8TAB62 SL; +PANT40TA PO; +PRED-301 PO; +PRED10TA PO; +PROM25TA16 PO; +SCOP1DIS14 TD; +SUCR1TAB PO; -TAPE1TAB10 PO; -TAPE75TA2 PO; +TUMS PO; +WLC625 PO; +[UNRECOGNIZED DRUG - CODE] PO; +[UNRECOGNIZED DRUG - CODE] UT
--- NOTE | 2016-12-30 17:19 | DIAGNOSTIC IMAGING REPORT ---
KUB CLINICAL HISTORY: ABD PAIN pain COMPARISON STUDY: 06/30/2016 FINDINGS: Interval removal of the left ureteral stent. Nonobstructive bowel pattern. Postoperative changes in the left to lesser extent right lateral soft tissue pelvis as well as prosthetic bed. Stable osteoblastic metastatic disease. IMPRESSION: Interval removal of the left ureteral stent. Nonobstructive bowel pattern. Stable osteoblastic bony metastatic change Electronically signed by: Dwight Ziegler M.D. 12/30/2016 5:17 PM Dictated Date/Time: 12/30/2016 5:17 PM
--- NOTE | 2016-12-30 18:53 | DIAGNOSTIC IMAGING REPORT ---
MRI OF THE BRAIN WITHOUT AND WITH IV CONTRAST CLINICAL HISTORY: C61,C79.51 - PT TO RAD FIRST status change COMPARISON STUDY: No previous studies for comparison. TECHNIQUE: Utilizing a 1.5 Nelda magnet and dedicated coil, multiplanar, multiecho imaging of the brain was performed pre and postcontrast administration. IV administration of 6.5 mL of Gadavist contrast was uneventful. FINDINGS: Diffusion-weighted images show no evidence for an acute ischemic focus. Mild chronic small vessel change in the periventricular and deep white matter regions. Ventricular system is midline. Sella and parasellar regions are unremarkable. Postcontrast images are considered negative for an enhancing lesion. IMPRESSION: Negative study. Minimal unremarkable changes of aging Electronically signed by: Dwight Ziegler M.D. 12/30/2016 6:52 PM Dictated Date/Time: 12/30/2016 6:50 PM
== END | disposition home or self-care (01) ==
LOC: C.MRI 16:42
PROVIDERS: ATTEND Internal Medicine Hematology & Oncology
DX: R10.9 Unspecified abdominal pain (principal); C61 Malignant neoplasm of prostate; C79.51 Secondary malignant neoplasm of bone; C18.9 Malignant neoplasm of colon, unspecified; Z79.899 Other long term (current) drug therapy

== ENCOUNTER 2017-01-05 10:06 | Inpatient (IN) | payer OTHER, BC ==
[~2017-01-05] VITALS: Ht 170.2 cm; Wt 65.8 kg
[~2017-01-05 10:06] MED LIST changes: -ALL100 PO; -ATV5 PO; -CRFUDL PO; -DLD2 PO; -DRGTP100 TD; -DRGTP75 TD; -FENT75DI2 TOP; -FLM4 PO; -FNTTP50 TD; -GABA1SOL3 PO; -GADAVIST IV PRN; -HYDR4TAB2 PO; -LANS30TA3 NG; -LANS30TA3 PO; -LDDP5 TD; -LORA-741 PO; -METH10TA2 PO; -METO5TAB3 PO; -ONDA8TAB62 SL; -PRED10TA PO; -PROM25TA16 PO; -SCOP1DIS14 TD; -SUCR1TAB PO; -TUMS PO; -WLC625 PO; -[UNRECOGNIZED DRUG - CODE] PO; -[UNRECOGNIZED DRUG - CODE] UT
[2017-01-05] MEDS ORDERED: DRGTP100 TD (10:39)
--- NOTE | 2017-01-05 11:22 | EMERGENCY ROOM VISIT NOTE ---
History Report prepared by Adria: Chantel Ku Under the Supervision of: Dr. Patty Buckley D.O. First contact with patient: 10:43 Chief Complaint: ALTERED MENTAL STATUS Stated Complaint: ALTERED MENTAL STATUS Nursing Triage Summary: pt awoke this am before , when awoke pt was going through cabinets and was confused pt layed down to sleep and reports pt was difficult to arouse pt had a 25mcg Fentanyl and 75mcg Fentanyl patch on both removed pt reported taking 2 4mg dilaudid po this am pt has cancer in intestine and prostate pt has Octevo tx on Monday family reports "cancer tx center has suggested Hospice for pt" pt is easily distracted and is able to follow commands but needs redirection pt is drowsy History of Present Illness The patient is a 71 year old male who presents to the Emergency Room with complaints of a sudden altered mental status that occurred this morning. He currently rates his discomfort as a 5/10 in severity. The patient's notes that the patient is currently undergoing chemotherapy treatment for metastatic cancer. She states that with the patient's first infusion, the patient experienced abdominal pain and back pain. The patient's notes that the patient was started on Fentanyl two weeks ago and has been doing well related to pain. She states that the patient had his second chemotherapy treatment Monday and did not complain of any back or abdominal pain. The patient's states that today the patient appeared altered and confused as he went throughout the kitchen cupboards. She states that she took the patient to their bedroom to lie down. She states that she let the patient in the room for 10 minutes and found him pale with intermittently labored breathing and shallow breathing. The patient's states that the breathing difficulties have been happening recently. She notes that the patient's eyes were dilated today. The patient's denies the patient being confused with the first treatment. She states that she called the patient's oncologist this morning and was instructed to come to the emergency department for further evaluation. The patient's denies the patient taking any extra pain medications recently. She states that it was suggested that the patient be placed on Hospice. Today, the patient notes slight abdominal pain, but denies it being out of the ordinary. He notes increased back pain and nausea. The patient denies any headache or bowel issues. The patient's family notes a new cough. Source of History: patient, family, spouse/significant other () Onset: this morning Position: other (global) Symptom Intensity: 5/10 Quality: other (altered mental status) Timing: other (sudden) Associated Symptoms: + SOB, + abdominal pain, + back pain, + nausea, No headache Note: Associated Symptoms: confusion Review of Systems See HPI for pertinent positives & negatives. A total of 10 systems reviewed and were otherwise negative. Past Medical & Surgical Medical Problems: (1) Abdominal pain (2) Altered mental status (3) Back pain (4) Hydronephrosis, left (5) Left ureteral calculus (6) Melena (7) Prostate ca (8) Prostate cancer metastatic to intraabdominal lymph node Surgical Problems: (1) Hx of cholecystectomy (2) S/P colectomy Family History FH: GI cancer Social History Smoking Status: Never Smoker Alcohol Use: none Drug Use: none Marital Status: Current/Historical Medications Scheduled Allopurinol (Zyloprim), 100 MG PO BID Colesevelam (Welchol), 625 MG PO TID Fentanyl (Fentanyl), 100 MCG TD CQ72HR Gabapentin (Gabapentin), 600 MG PO QID Hydromorphone Hcl (Dilaudid), 1-2 TAB PO QID Leuprolide Acetate (Lupron Depot), 30 MG IM [id number] Pantoprazole (Protonix), 40 MG PO DAILY Prednisone (Prednisone), 5 MG PO DAILY Tamsulosin Hcl (Flomax), 0.4 MG PO QPM Allergies Coded Allergies: No Known Allergies (Unverified , 01/05/17) Physical Exam Vital Signs Date Time Temp Pulse Resp B/P Pulse Ox O2 Delivery O2 Flow Rate FiO2 01/05/17 14:45 96 20 127/72 96 Room Air 01/05/17 13:09 98 20 152/84 94 01/05/17 12:13 89 21 138/72 96 Room Air 01/05/17 11:30 91 18 113/66 100 Nasal Cannula 2.0 01/05/17 10:35 98 Nasal Cannula 2.0 01/05/17 10:35 95 20 123/69 99 Nasal Cannula 2.0 01/05/17 10:34 98 Nasal Cannula 2.0 01/05/17 10:29 94 01/05/17 10:16 38.1 99 20 151/77 90 Room Air Physical Exam GENERAL: alert, well appearing, well nourished, no distress, non-toxic EYE EXAM: normal conjunctiva, PERRL and EOM's grossly intact OROPHARYNX: no exudate, no erythema, lips, buccal mucosa, and tongue normal and mucous membranes are dry NECK: supple, no nuchal rigidity, no adenopathy, non-tender LUNGS: Coarse breath sounds bilaterally, no wheezes, rhonchi, or rales. Normal chest wall mechanics HEART: no murmurs, S1 normal and S2 normal ABDOMEN: Left lower quadrant abdominal tenderness. abdomen soft, normo-active bowel sounds, no masses, no rebound or guarding. BACK: Back is symmetrical on inspection and there is no deformity, no midline tenderness, no CVA tenderness. SKIN: Pale. no rashes and no bruising UPPER EXTREMITIES: upper extremities are grossly normal. LOWER EXTREMITIES: No pitting edema. NEURO EXAM: Confused, answers basic questions, no gross weakness. Medical Decision & Procedures ER Provider Diagnostic Interpretation: Xray results per the radiologist and my interpretation. Other results have been interpreted by the radiologist and reviewed by me. HEAD CT NONCONTRAST CT DOSE: 614.27 mGy.cm HISTORY: Mental status change change in ms TECHNIQUE: Multiaxial CT images of the head were performed without the use of intravenous contrast. Comparison: None. Findings: The paranasal sinuses and mastoid air cells are clear. Normal density characteristics of the cerebellar as well as cerebral hemispheres. Small benign calcification lateral right tentorium. No evidence for acute intracranial hemorrhage. No midline shift. Impression: No acute intracranial abnormality. Electronically signed by: Dwight Ziegler M.D. 01/05/2017 11:40 AM Dictated Date/Time: 01/05/2017 11:38 AM CHEST ONE VIEW PORTABLE CLINICAL HISTORY: cough, fever dyspnea COMPARISON STUDY: 12/02/2015 FINDINGS: The bones soft tissues and hemidiaphragms are normal. The cardiomediastinal silhouette is normal. The lungs are clear. The pulmonary vasculature is normal. IMPRESSION: Negative chest. Electronically signed by: Dwight Ziegler M.D. 01/05/2017 11:58 AM Dictated Date/Time: 01/05/2017 11:57 AM Laboratory Results 01/05/17 11:25 Red Blood Count 3.38, Mean Corpuscular Volume 91.7, Mean Corpuscular Hemoglobin 29.6, Mean Corpuscular Hemoglobin Concent 32.3, Mean Platelet Volume 9.0, Neutrophils (%) (Auto) 77.4, Lymphocytes (%) (Auto) 9.3, Monocytes (%) (Auto) 12.1, Eosinophils (%) (Auto) 0.9, Basophils (%) (Auto) 0.3, Neutrophils # (Auto ) 2.50, Lymphocytes # (Auto) 0.30, Monocytes # (Auto) 0.39, Eosinophils # (Auto ) 0.03, Basophils # (Auto) 0.01 01/05/17 11:25 Test 01/05/17 11:25 01/05/17 12:15 White Blood Count 3.23 K/uL (4.8-10.8) Red Blood Count 3.38 M/uL (4.7-6.1) Hemoglobin 10.0 g/dL (14.0-18.0) Hematocrit 31.0 % (42-52) Mean Corpuscular Volume 91.7 fL (80-100) Mean Corpuscular Hemoglobin 29.6 pg (25-34) Mean Corpuscular Hemoglobin Concent 32.3 g/dl (32-36) Platelet Count 121 K/uL (130-400) Mean Platelet Volume 9.0 fL (7.4-10.4) Neutrophils (%) (Auto) 77.4 % Lymphocytes (%) (Auto) 9.3 % Monocytes (%) (Auto) 12.1 % Eosinophils (%) (Auto) 0.9 % Basophils (%) (Auto) 0.3 % Neutrophils # (Auto) 2.50 K/uL (1.4-6.5) Lymphocytes # (Auto) 0.30 K/uL (1.2-3.4) Monocytes # (Auto) 0.39 K/uL (0.11-0.59) Eosinophils # (Auto) 0.03 K/uL (0-0.5) Basophils # (Auto) 0.01 K/uL (0-0.2) RDW Standard Deviation 49.2 fL (36.4-46.3) RDW Coefficient of Variation 14.4 % (11.5-14.5) Immature Granulocyte % (Auto) 0.0 % Immature Granulocyte # (Auto) 0.00 K/uL (0.00-0.02) Anion Gap 6.0 mmol/L (3-11) Est Creatinine Clear Calc Drug Dose 90.5 ml/min Estimated GFR () 110.0 Estimated GFR (Non- 94.9 BUN/Creatinine Ratio 11.3 (10-20) Calcium Level 7.9 mg/dl (8.5-10.1) Total Bilirubin 0.5 mg/dl (0.2-1) Aspartate Amino Transf (AST/SGOT) 590 U/L (15-37) Alanine Aminotransferase (ALT/SGPT) 358 U/L (12-78) Alkaline Phosphatase 224 U/L (45-117) Total Protein 6.1 gm/dl (6.4-8.2) Albumin 2.8 gm/dl (3.4-5.0) Globulin 3.3 gm/dl (2.5-4.0) Albumin/Globulin Ratio 0.8 (0.9-2) Urine Color YELLOW Urine Appearance CLEAR (CLEAR) Urine pH 5.5 (4.5-7.5) Urine Specific [place] 1.014 (1.000-1.030) Urine Protein NEG (NEG) Urine Glucose (UA) NEG (NEG) Urine Ketones NEG (NEG) Urine Occult Blood NEG (NEG) Urine Nitrite NEG (NEG) Urine Bilirubin NEG (NEG) Urine Urobilinogen NEG (NEG) Urine Leukocyte Esterase TRACE (NEG) Urine WBC (Auto) 1-5 /hpf (0-5) Urine RBC (Auto) 0-4 /hpf (0-4) Urine Hyaline Casts (Auto) 1-5 /lpf (0-5) Urine Epithelial Cells (Auto) 0-5 /lpf (0-5) Urine Bacteria (Auto) NEG (NEG) Laboratory results per my review. Medications Administered Medications (Trade) Dose Ordered Sig/Scott Route Start Time Stop Time Status Last Admin Dose Admin Sodium Chloride (Nss 1000ml) 1,000 ml @ 999 mls/hr Q1H1M IV 01/05/17 12:30 02/04/17 12:29 01/05/17 12:21 999 MLS/HR Hydromorphone HCl (Dilaudid Inj) 1 mg NOW STAT IV 01/05/17 13:12 01/05/17 13:17 DC 01/05/17 13:26 1 MG Ondansetron HCl 4 mg 4 mg STK-MED ONCE .ROUTE 01/05/17 13:26 01/05/17 13:29 DC 01/05/17 13:36 4 MG Methylprednisolone Sodium Succinate 125 mg/Syringe 2 ml @ 1.5 mls/min ONE STAT IV 01/05/17 14:01 01/05/17 14:03 DC 01/05/17 14:37 1.5 MLS/MIN Sodium Chloride (Nss 1000ml) 1,000 ml @ 200 mls/hr Q5H IV 01/05/17 14:15 02/04/17 14:14 01/05/17 14:38 200 MLS/HR Hydromorphone HCl (Dilaudid Inj) 2 mg ONE STAT IV 01/05/17 14:29 01/05/17 14:30 DC 01/05/17 14:37 2 MG ECG Indication: altered mental status Rate (beats per minute): 97 Rhythm: sinus rhythm Findings: no acute ischemic change, other (normal axis, normal intervals) ED Course 1055: The patient was evaluated in room C4. A complete history and physical examination was performed. 1146: I discussed the hospice process with the manager of case management. She states that she will look in to the process. 1208: Per the manager of case management, the Palliative Care Nurse Practitioner is going to come down to evaluate the patient. She states that she spoke to the family and they are in agreement with the plan. 1230: Ordered Sodium Chloride 1000 ml @ 999 mls/hr IV. 1312: Ordered Dilaudid Inj 1 mg IV. 1321: I talked with the Palliative Care Nurse Practitioner. She states that the patient would like comfort measures at this time. 1323: Upon reevaluation, the patient is resting comfortably. I discussed my findings with the patient and his family and they understand and agree with the treatment plan. Based on the patients age, coexisting illnesses, exam and lab findings the decision to treat as an inpatient was made. The patient remained stable while under my care. The patient will be evaluated for further management. 1326: Ordered Zofran Inj 4 mg .route. 1358: I discussed the patients case with Dr. Adams, Oncology. He said to order Solu-Medrol for the patient. 1401: Ordered Methylprednisolone Sodium Succinate 125 mg/Syringe 2 ml @ 1.5 mls/ min IV. 1415: Ordered Sodium Chloride 1000 ml @ 200 mls/hr IV. 1429: Ordered Dilaudid Inj 2 mg IV. 1447: I discussed the patients case with POLI Miguel. He is going to evaluate the patient for further treatment. Medical Decision The patient is a 71 year old male who presents to the ED with complaints of altered mental status. Differential diagnosis include sepsis, brain mets, dehydration, electrolyte abnormality, progression of underlying malignancy, medication reaction. Patient seen in the emergency room by palliative care nurse. Patient and family agreeable with hospice. Abnormal LFTs noted, and oncology recommended doses Solu-Medrol. After perform CAT scan while the patient was awaiting admission, they feel this can be done later on and is not emergent. No evidence of obvious infectious etiology. Patient with known extensive metastatic disease. Patient's initial unresponsive episode at home with this morning likely secondary to pain medications. Pain patches were removed by EMS and patient was easily arousable and answered questions for me during evaluation. Slowly patient's pain did worsen and he was given additional IV pain medication here. Patient not started emergently or empirically on antibiotics. This may be reevaluated during admission. No evidence not neutropenic. Pancytopenia likely secondary to recent infusion. No evidence of acute CVA or intracranial hemorrhage. Consults Time Called: 1321 Consulting Physician: POLI Miguel Returned Call: [phone] I discussed the patients case with POLI Miguel. He is going to evaluate the patient for further treatment. Impression Primary Impression: Unresponsive episode Additional Impressions: Metastatic disease Dehydration Abnormal LFTs Scribe Attestation The scribe's documentation has been prepared under my direction and personally reviewed by me in its entirety. I confirm that the note above accurately reflects all work, treatment, procedures, and medical decision making performed by me. Departure Information Dispostion Being Evaluated By Hospitalist Referrals Jose Antonio Brock M.D. (PCP) Problem Qualifiers
--- NOTE | 2017-01-05 11:41 | DIAGNOSTIC IMAGING REPORT ---
HEAD CT NONCONTRAST CT DOSE: 614.27 mGy.cm HISTORY: Mental status change change in ms TECHNIQUE: Multiaxial CT images of the head were performed without the use of intravenous contrast. Comparison: None. Findings: The paranasal sinuses and mastoid air cells are clear. Normal density characteristics of the cerebellar as well as cerebral hemispheres. Small benign calcification lateral right tentorium. No evidence for acute intracranial hemorrhage. No midline shift. Impression: No acute intracranial abnormality. Electronically signed by: Dwight Ziegler M.D. 01/05/2017 11:40 AM Dictated Date/Time: 01/05/2017 11:38 AM
--- NOTE | 2017-01-05 11:59 | DIAGNOSTIC IMAGING REPORT ---
CHEST ONE VIEW PORTABLE CLINICAL HISTORY: cough, fever dyspnea COMPARISON STUDY: 12/02/2015 FINDINGS: The bones soft tissues and hemidiaphragms are normal. The cardiomediastinal silhouette is normal. The lungs are clear. The pulmonary vasculature is normal. IMPRESSION: Negative chest. Electronically signed by: Dwight Ziegler M.D. 01/05/2017 11:58 AM Dictated Date/Time: 01/05/2017 11:57 AM
[2017-01-05 12:00] LABS: BASO % 0.3 %; BASO ABS # 0.01 K/uL (0-0.2); COMPLETE YES; EOS % 0.9 %; LYMPH % 9.3 %; MEAN CELL VOLUME 91.7 fL (80-100); MEAN CORPUSCULAR HEMOGLOBIN 29.6 pg (25-34); MEAN CORPUSCULAR HGB CONC 32.3 g/dl (32-36); MONO % 12.1 %; NEUT % 77.4 %; PLATELET COUNT 121 K/uL (130-400); RED BLOOD COUNT 3.38 M/uL (4.7-6.1); WHITE BLOOD COUNT 3.23 K/uL (4.8-10.8)
[2017-01-05 12:18] LABS: BUN/CREATININE RATIO 11.3 (10-20); CALCIUM 7.9 mg/dl (8.5-10.1); CREATININE 0.7 mg/dl (0.60-1.40)
[2017-01-05 12:20] LABS: ALB/GLOB RATIO 0.8 (0.9-2)
[2017-01-05] MEDS ORDERED: SODIUM CHLORIDE 0.9% 1000ML 1,000 ML IV SCH ×2 (12:30→14:15)
[2017-01-05 12:36] LABS: URINE APPEARANCE CLEAR (CLEAR); URINE BILIRUBIN NEG (NEG); URINE COLOR YELLOW; URINE EPITHELIAL CELL AUTO 0-5 /lpf (0-5); URINE NITRITE NEG (NEG); URINE PH 5.5 (4.5-7.5); URINE SPECIFIC GRAVITY 1.014 (1.000-1.030); UROBILINOGEN NEG (NEG); ZZUR CULT IF INDIC CLEAN CATCH NO
[2017-01-05 12:38] LABS: MANUAL MICROSCOPIC REQUIRED? NO; REVIEW REQ? NO
[2017-01-05] MEDS ORDERED: HYDROmorphone INJ 1 MG/ML SYR IV STA (13:12)
[2017-01-05] MEDS ORDERED: ONDANSETRON INJ 2 MG/ML 2 ML VIAL ONE (13:26)
[2017-01-05] MEDS ORDERED: METHYLPREDNISOLONE IV 125 MG in SYRINGE 0 ML IV STA (14:01)
--- NOTE | 2017-01-05 14:20 | Palliative Care Consultation ---
Consultation Date of Consultation: Jan 05, 2017. Requesting Physician: Dr. Buckley Reason for Consultation: Goals of care History of Present Illness This 71 year old male patient presented to the ED today after an unresponsive episode at home with his . I obtained history mostly from the patient's , Caprice, as the patient himself is pleasantly confused. Patient was just admitted to [facility] from 12/21-12/23 with intractable back and abdominal pain; and before that he was here in October with GI bleed. This gentleman unfortunately metastatic prostate cancer with imagine on last admission which showed progressive metastatic disease including to the bones and liver. However, at that time he was still independently functioning and living well at home with , so he was still pursuing life-prolonging treatment through the cancer care partnership with Dr. Telles. Prior to his admission in November, the patient received his first dose of Opdivo and quickly developed new onset back pain, nausea, and vomiting. Today, his states that he just had his second Opdivo infusion two days ago, and again developed back pain, nausea and vomiting. This morning, patient was confused and disoriented, searching through kitchen cupboards aimlessly and that his pupils were "pinpoint." Caprice took him to their bedroom and had patient lie down. When she went back to wake him up, she was unable, so she called EMS. She also notes that he has had a cough without significant sputum expectoration and that he had a slightly elevated temp here (38.1C per record). Primary RN in ED informed me that EMS reported patient to have two fentanyl patches on, a 25mcg/hr and a 75mcg/hr, and had reported that he took 8mg PO Dilaudid as well. The fentanyl patches were removed en route. Patient's CXR and CT of head today were negative for anything acute. Lab work reveals elevated LFTs, low albumin at 2.8 and a UA negative for UTI. Given patient's metastatic disease and recent decline in function, palliative care consulted to establish goals of care. I had the pleasure of meeting this patient and family on his last admission. Today, I met with the patient, patient's /POA Caprice, and his son, Gomez. The patient is pleasantly confused at this time, however he was able to answer questions appropriately. He was somewhat fidgety and restless in the bed. I obtained the above history from patient's and the son agreed. Caprice had called Dr. Telles's office and I believe talked with YURI Veloz, who discussed patient's condition over the phone with her; and that unfortunately at this juncture, there is really no further treatment to be offered to patient. The and son both understand and indicate that they just want the patient to be comfortable and stay out of the hospital. I discussed with the patient and his family options or care in a facility vs. home with hospice. The states that she is unsure is she's able to care for him at home any more, especially with the current confusion/disorientation. The patient and family agree that placement into a SNF at this time would be most appropriate, will eventually transition to hospice care. POLST form completed. Currently c/o pain in lower abdomen described as a constant ache at 7/10. See plan below. Past Medical/Surgical History Medical History: Prostate CA with metastatic disease to bones and liver History of small bowel carcinoma s/p hemicolectomy GERD Neuropathy Upper GI bleed October 2016 Gout Surgical History: Hemicolectomy Social History Smoking Status: Never Smoker History of Alcohol Use: No Drug Use: none Marital Status: Housing Status: lives with significant other Review of Systems Constitutional: + fever, + weakness, No chills Respiratory: + cough, No dyspnea on exertion, No shortness of breath, No sputum Cardiac: No chest pain, No edema Abdomen: + diarrhea, + nausea, + vomiting, No pain Male : No problem reported Psychiatric: No anxiety Allergies Coded Allergies: No Known Allergies (Unverified , 01/05/17) Medications Current Inpatient Medications Medications (Trade) Dose Ordered Sig/Scott Route Start Time Stop Time Status Last Admin Dose Admin Sodium Chloride (Nss 1000ml) 1,000 ml @ 999 mls/hr Q1H1M IV 01/05/17 12:30 02/04/17 12:29 01/05/17 12:21 999 MLS/HR Physical Exam Date Time Temp Pulse Resp B/P Pulse Ox O2 Delivery O2 Flow Rate FiO2 01/05/17 13:09 98 20 152/84 94 01/05/17 12:13 89 21 138/72 96 Room Air 01/05/17 11:30 91 18 113/66 100 Nasal Cannula 2.0 01/05/17 10:35 98 Nasal Cannula 2.0 01/05/17 10:35 95 20 123/69 99 Nasal Cannula 2.0 01/05/17 10:34 98 Nasal Cannula 2.0 01/05/17 10:29 94 01/05/17 10:16 38.1 99 20 151/77 90 Room Air General Appearance: no apparent distress Neck: no JVD Respiratory: lungs clear, no respiratory distress, no accessory muscle use, + pertinent finding (nasal cannula) Cardiovascular: regular rate, rhythm, no edema, + normal peripheral pulses Abdomen: normal bowel sounds, soft, + tenderness (slightly) Neurologic/Psychiatric: alert, + disoriented Skin: + pallor Laboratory Results Last 24 Hours Test 01/05/17 11:25 01/05/17 12:15 White Blood Count 3.23 K/uL Red Blood Count 3.38 M/uL Hemoglobin 10.0 g/dL Hematocrit 31.0 % Mean Corpuscular Volume 91.7 fL Mean Corpuscular Hemoglobin 29.6 pg Mean Corpuscular Hemoglobin Concent 32.3 g/dl Platelet Count 121 K/uL Mean Platelet Volume 9.0 fL Neutrophils (%) (Auto) 77.4 % Lymphocytes (%) (Auto) 9.3 % Monocytes (%) (Auto) 12.1 % Eosinophils (%) (Auto) 0.9 % Basophils (%) (Auto) 0.3 % Neutrophils # (Auto) 2.50 K/uL Lymphocytes # (Auto) 0.30 K/uL Monocytes # (Auto) 0.39 K/uL Eosinophils # (Auto) 0.03 K/uL Basophils # (Auto) 0.01 K/uL RDW Standard Deviation 49.2 fL RDW Coefficient of Variation 14.4 % Immature Granulocyte % (Auto) 0.0 % Immature Granulocyte # (Auto) 0.00 K/uL Sodium Level 134 mmol/L Potassium Level 4.0 mmol/L Chloride Level 97 mmol/L Carbon Dioxide Level 31 mmol/L Anion Gap 6.0 mmol/L Blood Urea Nitrogen 8 mg/dl Creatinine 0.70 mg/dl Est Creatinine Clear Calc Drug Dose 90.5 ml/min Estimated GFR () 110.0 Estimated GFR (Non- 94.9 BUN/Creatinine Ratio 11.3 Random Glucose 90 mg/dl Calcium Level 7.9 mg/dl Total Bilirubin 0.5 mg/dl Aspartate Amino Transf (AST/SGOT) 590 U/L Alanine Aminotransferase (ALT/SGPT) 358 U/L Alkaline Phosphatase 224 U/L Total Protein 6.1 gm/dl Albumin 2.8 gm/dl Globulin 3.3 gm/dl Albumin/Globulin Ratio 0.8 Urine Color YELLOW Urine Appearance CLEAR Urine pH 5.5 Urine Specific [place] 1.014 Urine Protein NEG Urine Glucose (UA) NEG Urine Ketones NEG Urine Occult Blood NEG Urine Nitrite NEG Urine Bilirubin NEG Urine Urobilinogen NEG Urine Leukocyte Esterase TRACE Urine WBC (Auto) 1-5 /hpf Urine RBC (Auto) 0-4 /hpf Urine Hyaline Casts (Auto) 1-5 /lpf Urine Epithelial Cells (Auto) 0-5 /lpf Urine Bacteria (Auto) NEG Assessment & Plan Palliative Performance Scale: 50 % Problem list: Pain, back and abdominal Unresponsiveness- ?accidental narcotic overuse, resolved. Altered mental status Weakness Transaminitis Metastatic prostate CA Goals of care (Z51.5) Palliative care plan: Discussed with patient, /POA Caprice, son Gomez, and Dr. Buckley. 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 POLST completed as follows: DNR/DNI, comfort measures only , determine the use or limitation of antibiotics when infection occurs with comfort as the goal, trial of IV fluids only if indicated with comfort as the goal. -Patient and family requesting SNF placement at this time, eventually will transition to hospice which was discussed with them in detail. -Restart fentanyl patch at 37mcg/hr, Dilaudid 4mg PO Q4h PO PRN if able to swallow. OR Dilaudid 1mg IV Q3h PRN. -Recommend Zofran 4mg IV Q4h PRN. -Patient need to stay here until placement is possible, [facility] is family's first choice of SNF. Thank you kindly for this consult. I will follow as needed.
[2017-01-05] MEDS ORDERED: HYDROmorphone INJ 2 MG/ML SYR/VIAL IV STA (14:29)
[2017-01-05] MEDS ORDERED: MAGNESIUM HYDROXIDE SUSP 30 ML UDC PO PRN (14:45)
[2017-01-05] MEDS ORDERED: ACETAMINOPHEN 325 MG TAB PO PRN (14:45)
[2017-01-05] MEDS ORDERED: POLYETHYLENE (MIRALAX) 17 GM PACK PO PRN (14:45)
--- NOTE | 2017-01-05 15:03 | History and Physical ---
History & Physical Date & Time of Service: Jan 05, 2017 at 15:02 Chief Complaint: Altered Mental Status Primary Care Physician: Jose Antonio Brock M.D. History of Present Illness Source: patient, family 71 yo M p/w Hx of Metastatic Prostate cancer currently on chemo (Obdivo) ( last dose two days prior to arrival) currently on Fentanyl, Dilaudid at home for back pain/abdominal pain n/v,secondary to Obdivo side effects p/w Altered Mental status. Much of the history was obtained from the patient's as the patient has minimal recollection during this period. According to patient's , thia morning he was found sitting in chair with his "head hanging" and extremely drowsy and later found in kitchen looking through the cabinets in a confused state, inappropriately responding to questions. Patient later went to bed was subsequently able to wake him up. She then called Oncologist, Dr. Telles's office and was told to come into the ED. Last dose of Dilaudid was overnight, Fentanyl patch was removed this morning by EMS. denies change in stool, hematochezia, melena, hematemesis. denies urinary symptoms. denies numbness, weakness, tingling, LOC. In the ED,. CT Head showed no intracranial abnormality. LFT's were found to be significantly elevated above baseline (AST 590, Alt 358 Alk Phos 224). Patient' s mental status showed improvement. Past Medical/Surgical History Medical Problems: (1) Prostate ca Status: Chronic Surgical Problems: (1) S/P colectomy Status: Resolved Cholecystectomy Family History FH: GI cancer Social History Smoking Status: Never Smoker Drug Use: none Marital Status: Housing status: lives with significant other Occupational Status: retired Immunizations History of Influenza Vaccine: Yes Influenza Vaccine Date: Nov 12, 2013 History of Tetanus Vaccine?: utd Tetanus Immunization Date: Nov 12, 2013 History of Pneumococcal: Yes Pneumococcal Date: Nov 12, 2013 History of Hepatitis B Vaccine: No Multi-Drug Resistant Organisms History of MDRO: No Allergies Coded Allergies: No Known Allergies (Unverified , 01/05/17) Home Medications Scheduled Allopurinol (Zyloprim), 100 MG PO BID Colesevelam (Welchol), 625 MG PO TID Fentanyl (Fentanyl), 100 MCG TD [id number] Gabapentin (Gabapentin), 600 MG PO QID Hydromorphone Hcl (Dilaudid), 1-2 TAB PO QID Leuprolide Acetate (Lupron Depot), 30 MG IM [id number] Pantoprazole (Protonix), 40 MG PO DAILY Prednisone (Prednisone), 5 MG PO DAILY Tamsulosin Hcl (Flomax), 0.4 MG PO QPM Review of Systems Constitutional: + fatigue, + weakness, No chills, No fever Respiratory: + shortness of breath (resolved), No cough, No hemoptysis, No wheezing Cardiovascular: No chest pain, No edema, No palpitations Abdomen: + nausea, + pain (lower), + vomiting, No constipation, No diarrhea Genitourinary - Male: No dysuria, No hematuria, No urinary frequency, No urinary urgency Neurologic: No numbness/tingling, No paralysis, No weakness Integumentary: No color change, No itch, No rash Physical Exam Vital Signs Date Time Temp Pulse Resp B/P Pulse Ox O2 Delivery O2 Flow Rate FiO2 01/05/17 13:09 98 20 152/84 94 01/05/17 12:13 89 21 138/72 96 Room Air 01/05/17 11:30 91 18 113/66 100 Nasal Cannula 2.0 01/05/17 10:35 98 Nasal Cannula 2.0 01/05/17 10:35 95 20 123/69 99 Nasal Cannula 2.0 01/05/17 10:34 98 Nasal Cannula 2.0 01/05/17 10:29 94 01/05/17 10:16 38.1 99 20 151/77 90 Room Air General Appearance: WD/WN, no apparent distress Head: normocephalic, atraumatic Eyes: normal inspection, PERRL, EOMI Neck: supple, no adenopathy Respiratory/Chest: chest non-tender, lungs clear, normal breath sounds Cardiovascular: regular rate, rhythm, no edema, no murmur Abdomen/GI: normal bowel sounds, non tender, soft, no organomegaly, + pertinent finding (vertical abdominal scar from colectomy) Neurologic/Psych: guest services director II-XII nml as tested, no motor/sensory deficits, alert, normal mood/affect, oriented x 3 Skin: normal color, warm/dry, no rash Diagnostics Laboratory Results Results Past 24 Hours Test 01/05/17 11:25 01/05/17 12:15 Range/Units White Blood Count 3.23 4.8-10.8 K/uL Red Blood Count 3.38 4.7-6.1 M/uL Hemoglobin 10.0 14.0-18.0 g/dL Hematocrit 31.0 42-52 % Mean Corpuscular Volume 91.7 80-100 fL Mean Corpuscular Hemoglobin 29.6 25-34 pg Mean Corpuscular Hemoglobin Concent 32.3 32-36 g/dl Platelet Count 121 130-400 K/uL Mean Platelet Volume 9.0 7.4-10.4 fL Neutrophils (%) (Auto) 77.4 % Lymphocytes (%) (Auto) 9.3 % Monocytes (%) (Auto) 12.1 % Eosinophils (%) (Auto) 0.9 % Basophils (%) (Auto) 0.3 % Neutrophils # (Auto) 2.50 1.4-6.5 K/uL Lymphocytes # (Auto) 0.30 1.2-3.4 K/uL Monocytes # (Auto) 0.39 0.11-0.59 K/uL Eosinophils # (Auto) 0.03 0-0.5 K/uL Basophils # (Auto) 0.01 0-0.2 K/uL RDW Standard Deviation 49.2 36.4-46.3 fL RDW Coefficient of Variation 14.4 11.5-14.5 % Immature Granulocyte % (Auto) 0.0 % Immature Granulocyte # (Auto) 0.00 0.00-0.02 K/uL Sodium Level 134 136-145 mmol/L Potassium Level 4.0 3.5-5.1 mmol/L Chloride Level 97 98-107 mmol/L Carbon Dioxide Level 31 21-32 mmol/L Anion Gap 6.0 3-11 mmol/L Blood Urea Nitrogen 8 7-18 mg/dl Creatinine 0.70 0.60-1.40 mg/dl Est Creatinine Clear Calc Drug Dose 90.5 ml/min Estimated GFR () 110.0 Estimated GFR (Non- 94.9 BUN/Creatinine Ratio 11.3 10-20 Random Glucose 90 70-99 mg/dl Calcium Level 7.9 8.5-10.1 mg/dl Total Bilirubin 0.5 0.2-1 mg/dl Aspartate Amino Transf (AST/SGOT) 590 15-37 U/L Alanine Aminotransferase (ALT/SGPT) 358 12-78 U/L Alkaline Phosphatase 224 45-117 U/L Total Protein 6.1 6.4-8.2 gm/dl Albumin 2.8 3.4-5.0 gm/dl Globulin 3.3 2.5-4.0 gm/dl Albumin/Globulin Ratio 0.8 0.9-2 Urine Color YELLOW Urine Appearance CLEAR CLEAR Urine pH 5.5 4.5-7.5 Urine Specific [place] 1.014 1.000-1.030 Urine Protein NEG NEG Urine Glucose (UA) NEG NEG Urine Ketones NEG NEG Urine Occult Blood NEG NEG Urine Nitrite NEG NEG Urine Bilirubin NEG NEG Urine Urobilinogen NEG NEG Urine Leukocyte Esterase TRACE NEG Urine WBC (Auto) 1-5 0-5 /hpf Urine RBC (Auto) 0-4 0-4 /hpf Urine Hyaline Casts (Auto) 1-5 0-5 /lpf Urine Epithelial Cells (Auto) 0-5 0-5 /lpf Urine Bacteria (Auto) NEG NEG Diagnostic Radiology CHEST ONE VIEW PORTABLE CLINICAL HISTORY: cough, fever dyspnea COMPARISON STUDY: 12/02/2015 FINDINGS: The bones soft tissues and hemidiaphragms are normal. The cardiomediastinal silhouette is normal. The lungs are clear. The pulmonary vasculature is normal. IMPRESSION: Negative chest. HEAD CT NONCONTRAST CT DOSE: 614.27 mGy.cm HISTORY: Mental status change change in ms TECHNIQUE: Multiaxial CT images of the head were performed without the use of intravenous contrast. Comparison: None. Findings: The paranasal sinuses and mastoid air cells are clear. Normal density characteristics of the cerebellar as well as cerebral hemispheres. Small benign calcification lateral right tentorium. No evidence for acute intracranial hemorrhage. No midline shift. Impression: No acute intracranial abnormality. CXR normal Normal EKG Impression Assessment and Plan Documented By: Asif Douglas 71 yo M p/w hx of Metastatic Prostatic Carcinoma on chemotherapy with Obdivo and Fentanyl/Dilaudid for associated pain p/w Acute Confusion and subsequent lethargy on the morning of arrival w/ negative CT Head, afebrile, normal WCC, Elevated LFT's above baseline. Altered Mental Status, lethargy - currently resolved, AOx3 - likely Medication induced via Chemotherapy (Obdivo) vs. Opiate (Fentanyl, Dilaudid) - considered Brain Mets, but unlikely due to spontaneous improvement - No intracranial abnormality per CT - Normal WCC, Negative UA, -Continue to monitor Elevated LFT's - AST 590, Alt 358 Alk Phos 224 on 12/30/16 :AST 39, ALT 23 Alk Phos 82 - likely Chemotherapy induced transaminitis vs. Possible Liver Metastases - Followup repeat LFT's - Discussed with Dr. Telles - Start IV Solumedrol 40 ricky BID - F/U CT Abdomen Metastatic Prostate Cancer - Opdivo held as it is likely contributor to Altered Mental status, Elevated LFT's - F/u CT Abdomen to assess for Liver Metastases Abdominal Pain/Back pain - likely due to Obdivo side effects for malignancy - 05/08 intensity - s/p 1 mg Dilaudid in ED - Fentanyl patch removed this AM by EMS -Restart Fentanyl patch - Continue to monitor Disposition -Palliative Care consulted -Spoke with family along with Dr. Telles. Family seems to accept hospice as a likely option going forward. -Discussed case with Social Service who will see him during admission for discharge planning DVT Prophylaxis -Heparin Resident Physician Supervision Note: Pt seen/examined independently. I discussed the case with the resident and agree with the findings and plan as documented in the note. Any exceptions or clarifications are listed here. 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 71 y/o M - met prostate CA - admitted w/AMS which has resolved at the time of admission describes pinpoint pupils and lethargy AM so that this may have been due to Narcotic use rather than a side effect of Obdivo as above He also c/o abdominal pain which is chronic but not controlled today OE AAO x 3 S1,2 r CTAB mild abdominal tenderness to palpation P: IVFD and monitor on telemetry repeat CT pending as oncology would like to siva disease course prior to considering further treatment with Obdivo Will likely reintroduce Fentanyl as his pain is not controlled without Level of Care Med/Surg Resuscitation Status DO NOT RESUSCITATE VTE Prophylaxis VTE Risk Assessment Done? Y/N: Yes Risk Level: High Given or contraindicated: Warfarin (Coumadin) Social Service Consult Cancer Patient Under [place] Resident Tracking Resident Involvement: Resident Care Provided Care Provided: Adult Hospital Medicine
[2017-01-05] MEDS ORDERED: OPTIRAY 320 IV PRN (15:15)
[2017-01-05 16:20] LABS: PARTIAL THROMBOPLASTIN RATIO 1.1; PROTHROMBIN TIME (PATIENT) 10.8 SECONDS (9.0-12.0)
[2017-01-05 17:14] VITALS: BP 144/75; PULSE 88; TEMP 36.8; O2SAT 93
[2017-01-05] MEDS: GABAPENTIN 600 MG TAB PO SCH ×2 (17:57→19:34)
[2017-01-05] MEDS ORDERED: FENTANYL 100 MCG/HR TDSY TD SCH (18:00)
[2017-01-05 18:28] VITALS: BP 144/75; PULSE 88; TEMP 36.8; Ht 170.2 cm; Wt 65.8 kg
--- NOTE | 2017-01-05 19:07 | DIAGNOSTIC IMAGING REPORT ---
CT ABD/PELVIS IV AND ORAL CONT CLINICAL HISTORY: Metastatic Prostate Cancer, Elevated Liver enzymes COMPARISON STUDY: 12/21/2016 TECHNIQUE: Following the IV administration of 118 mL of Optiray-320, CT scan of the abdomen and pelvis was performed from the lung bases to the proximal femurs. Images are reviewed in the axial, sagittal, and coronal planes. IV contrast was administered without complication. CT DOSE: 292.32 mGy.cm FINDINGS: Lower chest: There are trace bilateral pleural effusions. There are left basilar atelectatic changes. Liver: There is slight enlargement in the multiple hepatic masses consistent with progressive hepatic metastasis. Gallbladder: Surgically absent Spleen: Top normal in size Pancreas: Unremarkable. Adrenal glands: Unremarkable. Kidneys: No solid renal masses are visualized. There is left-sided hydronephrosis. Bowel: There are no transition zones indicate bowel obstruction. There is a ventral hernia containing a small knuckle of small bowel. This is not currently resulting in obstructive change. Peritoneum: There is trace fluid within the left paracolic gutter. No free air is visualized. Vasculature: The abdominal aorta is normal in course and caliber. Adenopathy: There is bulky para-aortic lymphadenopathy measuring 7.5 cm in diameter. This represents a slight interval increase in size when compared the prior study. There is also progressive perirenal adenopathy/metastasis Pelvic viscera: Bradycardia therapy seeds are visualized in the prostate. Skeletal structures: There are scattered blastic lesions consistent with skeletal metastasis. IMPRESSION: 1. Progressive hepatic metastasis 2. Progressive retroperitoneal, and perirenal lymphadenopathy/metastatic disease 3. Blastic skeletal metastasis. 4. No evidence of bowel obstruction. No evidence of free air 5. Left-sided hydronephrosis 6. Bowel containing ventral hernia. No current evidence of obstruction. Electronically signed by: Orlando Mccullough M.D. 01/05/2017 7:06 PM Dictated Date/Time: 01/05/2017 6:59 PM
[2017-01-05] MEDS: METHYLPREDNISOLONE IV 40 MG in SYRINGE 0 ML IV SCH (19:34)
[2017-01-05] MEDS: ALLOPURINOL 100 MG TAB PO SCH (19:34)
[2017-01-05] MEDS: TAMSULOSIN HCL 0.4 MG CAP PO SCH (19:34)
[2017-01-05] MEDS: HEPARIN SOD 5000 UNIT/0.5 ML CARP SQ SCH (19:35)
[2017-01-05 19:40] VITALS: BP 153/76; PULSE 81; TEMP 36.5; O2SAT 96
[2017-01-05] MEDS: HYDROmorphone INJ 2 MG/ML SYR/VIAL IV PRN ×2 (20:25→23:19)
[2017-01-05 23:02] VITALS: BP 142/91; PULSE 82; TEMP 36.6; O2SAT 97
[2017-01-05] MEDS: ONDANSETRON INJ 2 MG/ML 2 ML VIAL IV PRN (23:18)
[2017-01-05] MEDS: CHECK FENTANYL PATCH PLACEMENT SCH (23:19)
[2017-01-06] VITALS (7 sets, daily range): BP systolic 111–148; BP diastolic 64–79; PULSE 74–79; TEMP 36.2–36.6; O2SAT 94–98
[2017-01-06] MEDS: HYDROmorphone INJ 2 MG/ML SYR/VIAL IV PRN ×3 (03:38→10:08)
[2017-01-06] MEDS: HEPARIN SOD 5000 UNIT/0.5 ML CARP SQ SCH (05:41)
[2017-01-06] MEDS: ONDANSETRON INJ 2 MG/ML 2 ML VIAL IV PRN ×2 (05:42→20:22)
[2017-01-06 06:01] LABS: MEAN CELL VOLUME 90.6 fL (80-100); MEAN CORPUSCULAR HEMOGLOBIN 30.2 pg (25-34); MEAN CORPUSCULAR HGB CONC 33.3 g/dl (32-36); MEAN PLATELET VOLUME 9.3 fL (7.4-10.4); PLATELET COUNT 116 K/uL (130-400); RED BLOOD COUNT 3.31 M/uL (4.7-6.1); WHITE BLOOD COUNT 2.59 K/uL (4.8-10.8)
[2017-01-06 06:27] LABS: INR 1.1 (0.9-1.1)
[2017-01-06] MEDS: CHECK FENTANYL PATCH PLACEMENT SCH ×2 (07:26→15:39)
[2017-01-06] MEDS: METHYLPREDNISOLONE IV 40 MG in SYRINGE 0 ML IV SCH ×2 (07:26→20:14)
[2017-01-06] MEDS: GABAPENTIN 600 MG TAB PO SCH ×4 (08:37→20:15)
[2017-01-06] MEDS: PANTOprazole SOD 40 MG TAB PO SCH (08:37)
[2017-01-06] MEDS: ALLOPURINOL 100 MG TAB PO SCH ×2 (08:38→20:15)
--- NOTE | 2017-01-06 10:18 | Palliative Care Progress Note ---
Palliative Care Progress Note Date of Service Jan 06, 2017. Subjective Pt evaluation today including: conversation w/ patient, physical exam, chart review, conversation w/ urban design consultant, review of inpatient medication list Pain: 6/10 but in no distress and is calm PO Intake: tolerating diet Voiding: no voiding problems -Patient is oriented x4 today, still some forgetfulness. Remembered all of our conversation in the ED yesterday and stated that he thinks he just took too much of his PO Dilaudid. -Still would like to transition to hospice care. -Did confirm that his dose of fentanyl patch at home was in fact 100mcg/hr Q72h. -CT abd/pelvis showed progression of hepatic mets, blastic bony mets, and left hydronephrosis. Does c/o left flank pain. Does not report difficulty with urination. Review of Systems Constitutional: No chills, No fever Respiratory: No cough, No dyspnea on exertion, No shortness of breath Cardiac: No chest pain, No edema Abdomen: + pain, No nausea, No vomiting Male : No problem reported Psychiatric: No anxiety, No depression symptoms Objective Vital Signs Date Time Temp Pulse Resp B/P Pulse Ox O2 Delivery O2 Flow Rate FiO2 01/06/17 08:27 36.6 77 16 138/74 96 Room Air 01/06/17 08:12 Room Air 01/06/17 04:02 36.3 75 18 148/78 98 Room Air 01/06/17 00:01 Room Air 01/05/17 23:02 36.6 82 16 142/91 97 Room Air 01/05/17 20:30 Room Air 01/05/17 19:40 36.5 81 16 153/76 96 Room Air 01/05/17 18:28 36.8 88 20 144/75 Room Air 01/05/17 17:14 36.8 88 20 144/75 93 Room Air 01/05/17 16:32 84 24 123/67 93 01/05/17 14:45 96 20 127/72 96 Room Air 01/05/17 13:09 98 20 152/84 94 01/05/17 12:13 89 21 138/72 96 Room Air 01/05/17 11:30 91 18 113/66 100 Nasal Cannula 2.0 01/05/17 10:35 98 Nasal Cannula 2.0 01/05/17 10:35 95 20 123/69 99 Nasal Cannula 2.0 01/05/17 10:34 98 Nasal Cannula 2.0 01/05/17 10:29 94 01/05/17 10:16 38.1 99 20 151/77 90 Room Air Physical Exam General Appearance: no apparent distress Neck: no JVD Respiratory/Chest: no respiratory distress, no accessory muscle use, + decreased breath sounds, + pertinent finding (now on room air) Cardiovascular: regular rate, rhythm, no edema, + normal peripheral pulses Abdomen: normal bowel sounds, soft, + tenderness (left flank slightly tender) Neurologic/Psychiatric: alert, normal mood/affect, oriented x 3, + pertinent finding (some forgetfulness) Skin: normal color, warm/dry Laboratory Results Last 24 Hours Test 01/05/17 11:25 01/05/17 12:15 01/06/17 05:20 01/06/17 05:30 White Blood Count 3.23 K/uL 2.59 K/uL Red Blood Count 3.38 M/uL 3.31 M/uL Hemoglobin 10.0 g/dL 10.0 g/dL Hematocrit 31.0 % 30.0 % Mean Corpuscular Volume 91.7 fL 90.6 fL Mean Corpuscular Hemoglobin 29.6 pg 30.2 pg Mean Corpuscular Hemoglobin Concent 32.3 g/dl 33.3 g/dl Platelet Count 121 K/uL 116 K/uL Mean Platelet Volume 9.0 fL 9.3 fL Neutrophils (%) (Auto) 77.4 % Lymphocytes (%) (Auto) 9.3 % Monocytes (%) (Auto) 12.1 % Eosinophils (%) (Auto) 0.9 % Basophils (%) (Auto) 0.3 % Neutrophils # (Auto) 2.50 K/uL Lymphocytes # (Auto) 0.30 K/uL Monocytes # (Auto) 0.39 K/uL Eosinophils # (Auto) 0.03 K/uL Basophils # (Auto) 0.01 K/uL RDW Standard Deviation 49.2 fL 47.5 fL RDW Coefficient of Variation 14.4 % 14.2 % Immature Granulocyte % (Auto) 0.0 % Immature Granulocyte # (Auto) 0.00 K/uL Prothrombin Time 10.8 SECONDS 12.0 SECONDS Prothromb Time International Ratio 1.0 1.1 Activated Partial Thromboplast Time 28.0 SECONDS Partial Thromboplastin Ratio 1.1 Sodium Level 134 mmol/L Potassium Level 4.0 mmol/L Chloride Level 97 mmol/L Carbon Dioxide Level 31 mmol/L Anion Gap 6.0 mmol/L Blood Urea Nitrogen 8 mg/dl Creatinine 0.70 mg/dl Est Creatinine Clear Calc Drug Dose 90.5 ml/min Estimated GFR () 110.0 Estimated GFR (Non- 94.9 BUN/Creatinine Ratio 11.3 Random Glucose 90 mg/dl Calcium Level 7.9 mg/dl Total Bilirubin 0.5 mg/dl 0.4 mg/dl Aspartate Amino Transf (AST/SGOT) 590 U/L 182 U/L Alanine Aminotransferase (ALT/SGPT) 358 U/L 250 U/L Alkaline Phosphatase 224 U/L 182 U/L Total Protein 6.1 gm/dl 5.9 gm/dl Albumin 2.8 gm/dl 2.6 gm/dl Globulin 3.3 gm/dl Albumin/Globulin Ratio 0.8 Urine Color YELLOW Urine Appearance CLEAR Urine pH 5.5 Urine Specific [place] 1.014 Urine Protein NEG Urine Glucose (UA) NEG Urine Ketones NEG Urine Occult Blood NEG Urine Nitrite NEG Urine Bilirubin NEG Urine Urobilinogen NEG Urine Leukocyte Esterase TRACE Urine WBC (Auto) 1-5 /hpf Urine RBC (Auto) 0-4 /hpf Urine Hyaline Casts (Auto) 1-5 /lpf Urine Epithelial Cells (Auto) 0-5 /lpf Urine Bacteria (Auto) NEG Direct Bilirubin 0.1 mg/dl Assessment and Plan Problem list: Pain, back and abdominal Unresponsiveness- ?accidental narcotic overuse, resolved. Altered mental status Weakness Transaminitis Metastatic prostate CA Goals of care (Z51.5) Palliative care plan: -Home with hospice vs. SNF after discharge then hospice. Will discussed with patient, , and casey saw operator when is able to come in. Patient's preference is to go home. -Need to transition to PO pain medication. Recommend: Dilaudid 6mg PO Q3h PRN pain. Discontinue IV Dilaudid. -Continue other medications. -POLST form done yesterday with patient and family. Will continue to follow. Palliative Performance Scale: 60 % Continued [facility] stay due to: inadequate oral pain control, multiple IV medications needed Discharge planning: home with Hospice, care home facility
--- NOTE | 2017-01-06 12:37 | Clinical Documentation Query ---
MILLI Faulkner : CLINICAL DOCUMENTATION QUERY Patient is a 71 year old male presenting for evaluation and treatment of an alteration in mental status. Patient utilizes transdermal Fentanyl and oral Dilaudid on an as needed basis in the setting of metastatic prostate cancer. Documentation includes: "Altered Mental Status, lethargy - currently resolved, AOx3 - likely Medication induced via Chemotherapy (Obdivo) vs. Opiate (Fentanyl, Dilaudid)" As appropriate, consider clarification as suggested below as this impacts severity of illness and measures of risk of mortality. In your clinical opinion is this patient being managed for: ( ) Toxic encephalopathy secondary to Obdivo and/or Fentanyl and/or Dilaudid, POA, resolved. ( ) Other explanation of clinical findings (Please Explain) (xx ) Unable to determine (Please Define) unclear to me what he presented as ( ) Need to Discuss ( ) Not Agree The medical record reflects the following clinical findings, treatment, and risk factors. Clinical Indicators: As above Treatment: CT scan of the brain, hematology, UA, neurologic exam Risk Factors: Medication interaction, overruse. Please clarify and document your clinical opinion in the progress notes and discharge summary. Terms such as "probable", "suspected", "likely", "questionable", "possible", or "still to be ruled out" are acceptable. IF IN AGREEMENT, YOU MUST DOCUMENT ABOVE DIAGNOSTIC STATEMENT IN DAILY PROGRESS NOTES AND DISCHARGE SUMMARY. This document is not part of the patient's record. Thank You, Brent Rod, WU [phone]
--- NOTE | 2017-01-06 12:57 | Hospitalist Progress Note ---
Hospitalist Progress Note Date of Service Jan 06, 2017. (Mayela Tatum PA-C) Subjective Pt evaluation today including: conversation w/ patient, conversation w/ family , physical exam, chart review, lab review, review of studies, conversation w/ senior solutions consultant, review of inpatient medication list Currently complaining of pain in his left rib. This has been chronic over the last 20 years. Dilaudid seems to be helping. Denies any nausea. No shortness of breath. Abdominal pain is tolerable. Additional Comments: 6 system review negative. Please see pertinent positives in the history of present illness section. (Mayela Tatum PA-C) Objective Vital Signs Date Time Temp Pulse Resp B/P Pulse Ox O2 Delivery O2 Flow Rate FiO2 01/06/17 08:27 36.6 77 16 138/74 96 Room Air 01/06/17 08:12 Room Air 01/06/17 04:02 36.3 75 18 148/78 98 Room Air 01/06/17 00:01 Room Air 01/05/17 23:02 36.6 82 16 142/91 97 Room Air 01/05/17 20:30 Room Air 01/05/17 19:40 36.5 81 16 153/76 96 Room Air 01/05/17 18:28 36.8 88 20 144/75 Room Air 01/05/17 17:14 36.8 88 20 144/75 93 Room Air 01/05/17 16:32 84 24 123/67 93 01/05/17 14:45 96 20 127/72 96 Room Air 01/05/17 13:09 98 20 152/84 94 (Mayela Tatum PA-C) Physical Exam General Appearance: no apparent distress Eyes: EOMI Neck: no JVD Respiratory/Chest: lungs clear Cardiovascular: regular rate, rhythm Abdomen: normal bowel sounds, non tender, soft Extremities: non-tender, no pedal edema Neurologic/Psychiatric: no motor/sensory deficits, oriented x 3 Skin: warm/dry (Mayela Tatum PA-C) Laboratory Results Last 24 Hours Test 01/06/17 05:20 01/06/17 05:30 Prothrombin Time 12.0 SECONDS Prothromb Time International Ratio 1.1 White Blood Count 2.59 K/uL Red Blood Count 3.31 M/uL Hemoglobin 10.0 g/dL Hematocrit 30.0 % Mean Corpuscular Volume 90.6 fL Mean Corpuscular Hemoglobin 30.2 pg Mean Corpuscular Hemoglobin Concent 33.3 g/dl RDW Standard Deviation 47.5 fL RDW Coefficient of Variation 14.2 % Platelet Count 116 K/uL Mean Platelet Volume 9.3 fL Total Bilirubin 0.4 mg/dl Direct Bilirubin 0.1 mg/dl Aspartate Amino Transf (AST/SGOT) 182 U/L Alanine Aminotransferase (ALT/SGPT) 250 U/L Alkaline Phosphatase 182 U/L Total Protein 5.9 gm/dl Albumin 2.6 gm/dl (Mayela Tatum PA-C) Diagnostic Results CT abdomen and pelvis 1. Progressive hepatic metastasis 2. Progressive retroperitoneal, and perirenal lymphadenopathy/metastatic disease 3. Blastic skeletal metastasis. 4. No evidence of bowel obstruction. No evidence of free air 5. Left-sided hydronephrosis 6. Bowel containing ventral hernia. No current evidence of obstruction. (Mayela Tatum PA-C) Assessment and Plan 71-year-old male presented to the emergency department with altered mental status that has now resolved. Thought to be secondary to polypharmacy/narcotic overdose. Metabolic encephalopathy secondary to narcotic overdose-resolved -Continue fentanyl patch 100 g daily -Transition Dilaudid 6 mg po q 3 h prn Metastatic prostate cancer-disease appears to be progressing -Patient at this point has decided to discontinue treatment -Palliative care consult appreciated. Patient will likely pursue hospice. 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 Discussed with Mayela Tatum PAC and agree with findings and plan as documented in the note. Any exceptions or clarifications are listed here: metastic prostate cancer, with some hepatic irritation, not sure if medication or metastatic disease. 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
[2017-01-06] MEDS: SCOPOLAMINE 1.5 MG TDSY TD SCH (13:01)
[2017-01-06] MEDS: HYDROmorphone HCL 2 MG TAB PO PRN ×3 (13:08→20:18)
[2017-01-06] MEDS ORDERED: LIDODERM (LIDOCAINE) PATCH 5% TD ONE (13:15)
[2017-01-06] MEDS: CHECK SCOPOLAMINE PATCH PLACEMENT SCH (15:39)
[2017-01-06] MEDS: TAMSULOSIN HCL 0.4 MG CAP PO SCH (20:15)
[2017-01-07] VITALS (7 sets, daily range): BP systolic 125–167; BP diastolic 68–83; PULSE 62–81; TEMP 36.2–36.8; O2SAT 96–99
[2017-01-07] MEDS ORDERED: HYDROmorphone INJ 0.5 MG/0.5 ML SYR IV PRN
[2017-01-07] MEDS: ALUMINUM/MAGNESIUM/SIMETH (MAALOX MAX) 30 ML UDC PO PRN ×2 (02:44→07:40)
[2017-01-07] MEDS: HYDROmorphone INJ 1 MG/ML SYR IV PRN ×2 (02:49→15:47)
[2017-01-07] MEDS: ONDANSETRON INJ 2 MG/ML 2 ML VIAL IV PRN ×2 (04:13→17:18)
[2017-01-07 06:53] LABS: ALKALINE PHOSPHATASE 144 U/L (45-117); ALT/SGPT 160 U/L (12-78); AST/SGOT 72 U/L (15-37)
[2017-01-07] MEDS: PANTOprazole SOD 40 MG TAB PO SCH (07:40)
[2017-01-07] MEDS: ENOXAPARIN 40 MG/0.4 ML SYR SQ SCH (07:41)
[2017-01-07] MEDS: GABAPENTIN 600 MG TAB PO SCH ×4 (07:41→22:10)
[2017-01-07] MEDS: ALLOPURINOL 100 MG TAB PO SCH ×2 (07:41→22:11)
[2017-01-07] MEDS: METHYLPREDNISOLONE IV 40 MG in SYRINGE 0 ML IV SCH ×2 (07:42→22:10)
[2017-01-07] MEDS: LIDODERM (LIDOCAINE) PATCH 5% TD SCH (07:42)
[2017-01-07] MEDS: CHECK FENTANYL PATCH PLACEMENT SCH ×3 (07:43→15:51)
[2017-01-07] MEDS: CHECK SCOPOLAMINE PATCH PLACEMENT SCH ×3 (07:50→15:51)
[2017-01-07] MEDS ORDERED: CALCIUM CARBONATE 500 MG CHEWABLE PO PRN (10:30)
[2017-01-07] MEDS ORDERED: GI COCKTAIL PO PRN (10:30)
[2017-01-07] MEDS ORDERED: KETOROLAC TROMETHAMINE 15 MG/ML VIAL IV. STA (10:32)
[2017-01-07] MEDS: SUCRALFATE 1 GM TAB PO SCH ×4 (11:21→22:12)
[2017-01-07] MEDS: ALUMINUM/MAGNESIUM SUSP 72 ML, LIDOCAINE HCL 2% VISCOUS SOLN 24 ML, BARCODE IDENTIFIER ... PO PRN ×2 (12:07)
--- NOTE | 2017-01-07 12:23 | Hospitalist Progress Note ---
Hospitalist Progress Note Date of Service Jan 07, 2017. (Mayela Tatum PA-C) Subjective Pt evaluation today including: conversation w/ patient, physical exam, chart review, lab review, review of inpatient medication list Complaining of some acid reflux. Describes it as a burning sensation. Also associated with mild nausea. No vomiting. Denies any new abdominal pain. Had 2 bowel movements this morning. Denies any fever or chills. Still complaining of pain in the left rib. Additional Comments: 6 system review negative. Please see pertinent positives in the history of present illness section. (Mayela Tatum PA-C) Objective Vital Signs Date Time Temp Pulse Resp B/P Pulse Ox O2 Delivery O2 Flow Rate FiO2 01/07/17 11:04 36.5 76 18 153/82 97 Room Air 01/07/17 08:00 Room Air 01/07/17 07:08 36.8 77 20 134/74 99 Room Air 01/07/17 04:35 36.6 81 20 125/68 96 Room Air 01/07/17 00:00 97 Room Air 01/06/17 23:21 36.2 74 18 113/64 97 Room Air 01/06/17 20:05 36.6 79 18 122/79 95 Room Air 01/06/17 16:00 94 Room Air 01/06/17 14:35 36.6 74 20 111/64 94 01/06/17 12:57 36.5 77 18 118/68 96 Room Air (Mayela Tatum PA-C) Physical Exam General Appearance: no apparent distress (sitting up in a chair) Eyes: EOMI Neck: no JVD Respiratory/Chest: lungs clear Cardiovascular: regular rate, rhythm Abdomen: normal bowel sounds, soft Extremities: non-tender, no pedal edema Neurologic/Psychiatric: oriented x 3 (Mayela Tatum PA-C) Laboratory Results Last 24 Hours Test 01/07/17 05:48 Total Bilirubin 0.2 mg/dl Direct Bilirubin < 0.1 mg/dl Aspartate Amino Transf (AST/SGOT) 72 U/L Alanine Aminotransferase (ALT/SGPT) 160 U/L Alkaline Phosphatase 144 U/L Total Protein 5.7 gm/dl Albumin 2.6 gm/dl (Mayela Tatum PA-C) Assessment and Plan 71-year-old male presented to the emergency department with altered mental status that has now resolved. Thought to be secondary to polypharmacy/narcotic overdose. Metabolic encephalopathy secondary to narcotic overdose-resolved -Continue fentanyl patch 100 g daily -Transition Dilaudid 6 mg po q 3 h prn -Toradol 30 mg IV q 6 hr Acid reflux -Try GI cocktail -Add Tums -Continue Maalox prn -Zofran every 6 hours as needed -PPI Metastatic prostate cancer-disease appears to be progressing -Patient at this point has decided to discontinue treatment -Palliative care consult appreciated. Patient will likely pursue hospice. 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 -LFTs continue to improve -Continue Solu-Medrol 40 mg IV BID--> transition to prednisone 20 mg po TID upon discharge -Follow up with oncology for repeat LFTs in 2 weeks GERD -Continue pantoprazole 40 mg daily Neuropathy -Continue gabapentin 600 mg QID DVT prophylaxis -Change heparin 3 times a day to Lovenox 40 mg subcutaneous once daily for patient's comfort CODE STATUS -LEVEL V DO NO RESUSCITATE DISPO -Family is hopeful for discharge to [facility] to pursue hospice -medically stable today-->awaiting placement (Mayela Tatum, PATamraC) PA Physician Supervision Note: I interviewed and examined the patient. Discussed with Mayela Tatum PAC and agree with findings and plan as documented in the note. Any exceptions or clarifications are listed here: metastatic prostate cancer, with some hepatic irritation, has improved with prednisone suggests optivo irritation. 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
[2017-01-07] MEDS: HYDROmorphone HCL 2 MG TAB PO PRN ×2 (16:46→22:13)
[2017-01-07] MEDS: KETOROLAC TROMETHAMINE 15 MG/ML VIAL IV. PRN (19:13)
[2017-01-07] MEDS: TAMSULOSIN HCL 0.4 MG CAP PO SCH (22:11)
[2017-01-08] VITALS (7 sets, daily range): BP systolic 116–163; BP diastolic 64–85; PULSE 53–81; TEMP 36.5–36.8; O2SAT 95–98
[2017-01-08] MEDS: HYDROmorphone HCL 2 MG TAB PO PRN ×3 (03:05→17:05)
[2017-01-08] MEDS: KETOROLAC TROMETHAMINE 15 MG/ML VIAL IV. PRN (03:57)
[2017-01-08] MEDS: ONDANSETRON INJ 2 MG/ML 2 ML VIAL IV PRN (04:06)
[2017-01-08] MEDS: HYDROmorphone INJ 1 MG/ML SYR IV PRN (04:53)
[2017-01-08 06:26] LABS: HEMATOCRIT 28.7 % (42-52); MEAN CELL VOLUME 88.3 fL (80-100); MEAN CORPUSCULAR HEMOGLOBIN 29.8 pg (25-34); MEAN CORPUSCULAR HGB CONC 33.8 g/dl (32-36); MEAN PLATELET VOLUME 9.1 fL (7.4-10.4); PLATELET COUNT 165 K/uL (130-400); RED BLOOD COUNT 3.25 M/uL (4.7-6.1); WHITE BLOOD COUNT 6.81 K/uL (4.8-10.8)
[2017-01-08] MEDS: ALLOPURINOL 100 MG TAB PO SCH ×2 (07:26→21:07)
[2017-01-08] MEDS: SUCRALFATE 1 GM TAB PO SCH ×4 (07:26→21:07)
[2017-01-08] MEDS: ENOXAPARIN 40 MG/0.4 ML SYR SQ SCH (07:27)
[2017-01-08] MEDS: METHYLPREDNISOLONE IV 40 MG in SYRINGE 0 ML IV SCH ×2 (07:27→21:06)
[2017-01-08] MEDS: GABAPENTIN 600 MG TAB PO SCH ×4 (07:28→21:06)
[2017-01-08] MEDS: PANTOprazole SOD 40 MG TAB PO SCH (07:28)
[2017-01-08] MEDS: CHECK FENTANYL PATCH PLACEMENT SCH ×6 (07:36→23:49)
[2017-01-08] MEDS: CHECK SCOPOLAMINE PATCH PLACEMENT SCH ×4 (07:36→23:49)
[2017-01-08] MEDS: LIDODERM (LIDOCAINE) PATCH 5% TD SCH (07:37)
--- NOTE | 2017-01-08 09:16 | Hospitalist Progress Note ---
Hospitalist Progress Note Date of Service Jan 08, 2017. (Mayela Tatum PA-C) Subjective Pt evaluation today including: conversation w/ patient, physical exam, chart review, review of inpatient medication list Nausea is improved. Acid reflux also improved. Still complaining of left- sided rib pain. Unsure if the pain medicines are helping. Additional Comments: 6 system review negative. Please see pertinent positives in the history of present illness section. (Mayela Tatum PA-C) Objective Vital Signs Date Time Temp Pulse Resp B/P Pulse Ox O2 Delivery O2 Flow Rate FiO2 01/08/17 08:00 Room Air 01/08/17 07:14 36.5 59 18 129/64 98 Room Air 01/08/17 04:03 36.6 56 20 163/85 95 Room Air 56 01/08/17 00:00 98 Room Air 01/07/17 22:38 36.6 68 20 167/77 98 Room Air 01/07/17 19:01 36.2 77 20 162/83 99 Room Air 01/07/17 16:00 Room Air 01/07/17 15:15 36.3 62 18 128/68 98 Room Air 01/07/17 11:04 36.5 76 18 153/82 97 Room Air (Mayela Tatum PA-C) Physical Exam General Appearance: no apparent distress Neck: no JVD Respiratory/Chest: lungs clear Cardiovascular: regular rate, rhythm Abdomen: normal bowel sounds, soft Extremities: non-tender, no pedal edema Neurologic/Psychiatric: oriented x 3, + pertinent finding (depressed affect noted) Skin: warm/dry (Mayela Tatum, ALFRED) Laboratory Results 01/08/17 05:35 Test 01/08/17 05:35 Red Blood Count 3.25 M/uL (4.7-6.1) Mean Corpuscular Volume 88.3 fL (80-100) Mean Corpuscular Hemoglobin 29.8 pg (25-34) Mean Corpuscular Hemoglobin Concent 33.8 g/dl (32-36) RDW Standard Deviation 46.2 fL (36.4-46.3) RDW Coefficient of Variation 14.1 % (11.5-14.5) Mean Platelet Volume 9.1 fL (7.4-10.4) Last 24 Hours Test 01/08/17 05:35 White Blood Count 6.81 K/uL Red Blood Count 3.25 M/uL Hemoglobin 9.7 g/dL Hematocrit 28.7 % Mean Corpuscular Volume 88.3 fL Mean Corpuscular Hemoglobin 29.8 pg Mean Corpuscular Hemoglobin Concent 33.8 g/dl RDW Standard Deviation 46.2 fL RDW Coefficient of Variation 14.1 % Platelet Count 165 K/uL Mean Platelet Volume 9.1 fL (Mayela Tatum PA-C) Assessment and Plan 71-year-old male presented to the emergency department with altered mental status that has now resolved. Thought to be secondary to polypharmacy/narcotic overdose. Metabolic encephalopathy secondary to narcotic overdose-resolved -Increase fentanyl from 100 g to 125 g patch -Continue Dilaudid 6 mg po q 3 h prn -Change Toradol to Celebrex 100 mg po BID -Continue lidocaine patch ?Depression and anxiety-some of the patient's pain and nausea could be related to this. -Consider the addition of an SSRI Acid reflux-improved -Continue PPI -Continue Tums, Maalox and GI cocktail prn Metastatic prostate cancer-disease appears to be progressing -Palliative care consult appreciated. Patient will likely pursue hospice. 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 Discussed with Mayela Tatum PAC and agree with findings and plan as documented in the note. Any exceptions or clarifications are listed here: metastatic prostate cancer, LFT changes and symptoms have improved with prednisone suggesting optivo irritation. 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
[2017-01-08] MEDS ORDERED: FENTANYL PATCH REMOVE & WASTE SCH ×2 (09:29→17:59)
[2017-01-08] MEDS ORDERED: FENTANYL 100 MCG/HR TDSY TD SCH (09:30)
[2017-01-08] MEDS ORDERED: FENTANYL 25 MCG/HR TDSY TD SCH (09:30)
[2017-01-08] MEDS ORDERED: LORAZEPAM 0.5 MG TAB PO STA (11:12)
[2017-01-08] MEDS ORDERED: NURSING VERBAL MED ORDER ONE (16:45)
[2017-01-08] MEDS: LORAZEPAM 0.5 MG TAB PO PRN (21:06)
[2017-01-08] MEDS: CeleBREX 100 MG CAP PO SCH (21:07)
[2017-01-08] MEDS: TAMSULOSIN HCL 0.4 MG CAP PO SCH (21:08)
[2017-01-09 04:09] VITALS: BP 132/83; PULSE 59; TEMP 36.4; O2SAT 97
[2017-01-09] MEDS: ALUMINUM/MAGNESIUM SUSP 72 ML, LIDOCAINE HCL 2% VISCOUS SOLN 24 ML, BARCODE IDENTIFIER ... PO PRN ×2 (06:17)
[2017-01-09 06:25] LABS: CREATININE 0.63 mg/dl (0.60-1.40)
[2017-01-09 06:44] VITALS: BP 148/78; PULSE 60; TEMP 36.6; O2SAT 97
[2017-01-09] MEDS: ONDANSETRON INJ 2 MG/ML 2 ML VIAL IV PRN ×2 (07:42→21:41)
[2017-01-09] MEDS: METHYLPREDNISOLONE IV 40 MG in SYRINGE 0 ML IV SCH ×2 (07:45→20:47)
[2017-01-09] MEDS: GABAPENTIN 600 MG TAB PO SCH ×4 (07:46→20:48)
[2017-01-09] MEDS: CeleBREX 100 MG CAP PO SCH ×2 (07:47→20:47)
[2017-01-09] MEDS: ALLOPURINOL 100 MG TAB PO SCH ×2 (07:47→20:48)
[2017-01-09] MEDS: SUCRALFATE 1 GM TAB PO SCH ×4 (07:47→20:47)
[2017-01-09] MEDS: PANTOprazole SOD 40 MG TAB PO SCH (07:47)
[2017-01-09] MEDS: LIDODERM (LIDOCAINE) PATCH 5% TD SCH (07:48)
[2017-01-09] MEDS: CHECK SCOPOLAMINE PATCH PLACEMENT SCH ×3 (07:48→23:46)
[2017-01-09] MEDS: ENOXAPARIN 40 MG/0.4 ML SYR SQ SCH (07:48)
[2017-01-09] MEDS: CHECK FENTANYL PATCH PLACEMENT SCH ×6 (07:49→23:46)
[2017-01-09] MEDS: SCOPOLAMINE 1.5 MG TDSY TD SCH (12:42)
[2017-01-09] MEDS: HYDROmorphone HCL 2 MG TAB PO PRN (13:25)
--- NOTE | 2017-01-09 13:41 | Hospitalist Progress Note ---
Hospitalist Progress Note Date of Service Jan 09, 2017. (Mayela Tatum PA-C) Subjective Pt evaluation today including: conversation w/ patient, conversation w/ family , physical exam, chart review, lab review, review of inpatient medication list Patient reports that his pain and nausea are somewhat improved. He thinks that we have the "recipe right." Denies any other symptoms such as fever, cough, shortness of breath. No abdominal pain or nausea. Tolerating his diet. Additional Comments: 6 system review negative. Please see pertinent positives in the history of present illness section. (Mayela Tatum PA-C) Objective Vital Signs Date Time Temp Pulse Resp B/P Pulse Ox O2 Delivery O2 Flow Rate FiO2 01/09/17 08:00 Room Air 01/09/17 06:44 36.6 60 18 148/78 97 Room Air 01/09/17 04:09 36.4 59 20 132/83 97 Room Air 01/09/17 00:00 Room Air 01/08/17 23:27 36.5 53 18 146/84 95 Room Air 01/08/17 20:00 Room Air 01/08/17 19:05 36.8 55 18 116/64 97 Room Air 01/08/17 16:00 Room Air 01/08/17 15:12 36.8 81 20 137/77 96 Room Air (Mayela Tatum PA-C) Physical Exam General Appearance: no apparent distress Eyes: EOMI Neck: no JVD Respiratory/Chest: lungs clear Cardiovascular: regular rate, rhythm Abdomen: normal bowel sounds, non tender, soft Extremities: non-tender, no pedal edema Neurologic/Psychiatric: no motor/sensory deficits, oriented x 3 (Mayela Tatum PA-C) Laboratory Results Last 24 Hours Test 01/09/17 05:40 Creatinine 0.63 mg/dl Est Creatinine Clear Calc Drug Dose 100.6 ml/min Estimated GFR () 114.9 Estimated GFR (Non- 99.1 (Mayela Tatum PA-C) Assessment and Plan 71-year-old male presented to the emergency department with altered mental status that has now resolved. Thought to be secondary to polypharmacy/narcotic overdose. Metabolic encephalopathy secondary to narcotic overdose-resolved -Fentanyl increased yesterday to 125 mcg patch -Continue Dilaudid 6 mg po q 3 h prn -Continue Celebrex 100 mg po BID -Continue lidocaine patch ?Depression and anxiety-some of the patient's pain and nausea could be related to this. -pt benefitted greatly with the addition of Ativan yesterday. Continue at 0.5 mg q 6 hr prn Acid reflux-improved -Continue PPI -Continue Tums, Maalox and GI cocktail prn Metastatic prostate cancer-disease appears to be progressing -Palliative care consult appreciated. Patient will likely pursue hospice. 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 I agree w/ the parkinson components of her documentation. Pt w/o complaints of pain, anxiety today. Feeling much better. VSS no fever gen - eating lunch, looks comfortable mouth - no thrush heart - RRR, s1, s2 lungs - CTA b/l abd - soft, NT, BS+, no HSM ext - no edema A/P: 1. recent toxic encephalopathy (suspected) - resolved. 2. stage 4 progressive prostate ca with bony mets - pain improved. 3. anxiety - improved w/ ativan. 4. deconditioning - awaiting Tx to [facility] for rehabbing. patient likely to pursue hospice in the near future updated Lars Orozco MD (Lars Orozco MD)
[2017-01-09] MEDS: LORAZEPAM 0.5 MG TAB PO PRN ×2 (14:32→23:50)
[2017-01-09 14:59] VITALS: BP 142/79; PULSE 63; TEMP 36.7; O2SAT 95
[2017-01-09] MEDS: HYDROmorphone INJ 1 MG/ML SYR IV PRN ×2 (15:54→23:51)
[2017-01-09 16:00] VITALS: O2SAT 95
[2017-01-09 19:28] VITALS: BP 143/71; PULSE 59; TEMP 36.5; O2SAT 98
[2017-01-09] MEDS: TAMSULOSIN HCL 0.4 MG CAP PO SCH (20:47)
[2017-01-09 23:28] VITALS: BP 142/74; PULSE 60; TEMP 36.7; O2SAT 98
[2017-01-10] MEDS ORDERED: PROMETHAZINE HCL 25 MG TAB PO SCH (00:15)
[2017-01-10 03:31] VITALS: BP 135/72; PULSE 65; TEMP 36.6; O2SAT 97
[2017-01-10 06:22] LABS: ALKALINE PHOSPHATASE 103 U/L (45-117); ALT/SGPT 79 U/L (12-78); AST/SGOT 24 U/L (15-37)
[2017-01-10 07:14] VITALS: BP 136/73; PULSE 56; TEMP 36.5; O2SAT 96
[2017-01-10] MEDS: ONDANSETRON INJ 2 MG/ML 2 ML VIAL IV PRN (07:23)
[2017-01-10] MEDS: CHECK SCOPOLAMINE PATCH PLACEMENT SCH ×3 (08:00→23:41)
[2017-01-10] MEDS: CHECK FENTANYL PATCH PLACEMENT SCH ×6 (08:00→23:40)
[2017-01-10] MEDS: SUCRALFATE 1 GM TAB PO SCH ×4 (08:33→20:27)
[2017-01-10] MEDS: GABAPENTIN 600 MG TAB PO SCH ×4 (08:33→20:27)
[2017-01-10] MEDS: PANTOprazole SOD 40 MG TAB PO SCH (08:33)
[2017-01-10] MEDS: ENOXAPARIN 40 MG/0.4 ML SYR SQ SCH (08:34)
[2017-01-10] MEDS: LIDODERM (LIDOCAINE) PATCH 5% TD SCH (08:34)
[2017-01-10] MEDS: CeleBREX 100 MG CAP PO SCH ×2 (08:34→20:28)
[2017-01-10] MEDS: ALLOPURINOL 100 MG TAB PO SCH ×2 (08:34→20:27)
[2017-01-10 11:35] VITALS: BP 126/64; PULSE 55; TEMP 36.7; O2SAT 97
[2017-01-10] MEDS: HYDROmorphone HCL 2 MG TAB PO PRN ×4 (12:15→21:25)
--- NOTE | 2017-01-10 12:50 | Palliative Care Progress Note ---
Palliative Care Progress Note Date of Service Jan 10, 2017. Subjective Pt evaluation today including: conversation w/ patient, physical exam, conversation w/ treasury consultant, review of inpatient medication list Pain: 3/10 in left side/flank PO Intake: tolerating diet Voiding: no voiding problems -Alert and oriented x4 -Feeling well, pain is better -No IV Dilaudid since yesterday evening (received 1mg), also had one dose of 6mg PO Dilaudid Review of Systems Constitutional: No chills, No fever, No weakness Respiratory: No dyspnea on exertion, No shortness of breath Cardiac: No chest pain, No edema Abdomen: No nausea, No pain, No vomiting Male : No problem reported Neurologic: No problem reported Objective Vital Signs Date Time Temp Pulse Resp B/P Pulse Ox O2 Delivery O2 Flow Rate FiO2 01/10/17 11:35 36.7 55 20 126/64 97 Room Air 01/10/17 08:00 Room Air 01/10/17 07:14 36.5 56 18 136/73 96 Room Air 01/10/17 03:31 36.6 65 20 135/72 97 Room Air 01/10/17 00:00 Room Air 01/09/17 23:28 36.7 60 16 142/74 98 Room Air 01/09/17 19:28 36.5 59 20 143/71 98 Room Air 01/09/17 16:00 95 Room Air 01/09/17 14:59 36.7 63 20 142/79 95 Room Air Physical Exam General Appearance: no apparent distress ENT: + pertinent finding (cheeks flushed- thought to be from sterioid use) Neck: no JVD Respiratory/Chest: lungs clear, no respiratory distress, no accessory muscle use Cardiovascular: regular rate, rhythm, no edema Abdomen: normal bowel sounds, soft, + tenderness (slightly tender over left flank) Neurologic/Psychiatric: alert, normal mood/affect, oriented x 3 Laboratory Results Last 24 Hours Test 01/10/17 05:12 Total Bilirubin 0.3 mg/dl Direct Bilirubin < 0.1 mg/dl Aspartate Amino Transf (AST/SGOT) 24 U/L Alanine Aminotransferase (ALT/SGPT) 79 U/L Alkaline Phosphatase 103 U/L Total Protein 5.7 gm/dl Albumin 2.7 gm/dl Assessment and Plan Problem list: Pain, back and abdominal Unresponsiveness- ?accidental narcotic overuse, resolved. Altered mental status Weakness Transaminitis Metastatic prostate CA Goals of care (Z51.5) Palliative care plan: -Waiting for SNF placement. Will most likely eventually transition to hospice either at SNF or at home. -Continue Dilaudid 6mg PO Q3h PRN pain. IV Dilaudid discontinued today, spoke with Dr. Orozco about this. -POLST form done with patient and family. Please contact me if there are any further palliative needs. I will sign off for now. Palliative Performance Scale: 60 % [facility]
[2017-01-10 15:12] VITALS: BP 142/77; PULSE 73; TEMP 36.6; O2SAT 97
[2017-01-10] MEDS: LORAZEPAM 0.5 MG TAB PO PRN ×2 (16:16→21:59)
--- NOTE | 2017-01-10 18:16 | Progress Note ---
Subjective Date of Service: Jan 10, 2017. Subjective Pt evaluation today including: conversation w/ patient, physical exam, chart review, lab review Pain: overall control satisfactory today (just having back pain) PO Intake: eating well Voiding: no voiding problems no new issues overnight required just 1 dose of IV dilaudid late last pm ambulating no sob, chest pain, abd pain stools are firming up Problem List Medical Problems: (1) Abnormal LFTs Status: Acute (2) Anemia Status: Acute (3) Dehydration Status: Acute (4) Failure of outpatient treatment Status: Acute (5) Gastrointestinal bleeding Status: Acute (6) GI malignancy Status: Acute (7) Intractable abdominal pain Status: Acute (8) Intractable pain Status: Acute (9) Metastasis Status: Acute (10) Metastatic disease Status: Acute (11) Neutropenia Status: Acute (12) Renal colic Status: Acute (13) Unresponsive episode Status: Acute (14) Urinary tract infection Status: Acute (15) Vomiting Status: Acute Review of Systems Constitutional: No fever Respiratory: No cough Cardiac: No chest pain Abdomen: No pain Objective Vital Signs Date Time Temp Pulse Resp B/P Pulse Ox O2 Delivery O2 Flow Rate FiO2 01/10/17 16:00 Room Air 01/10/17 15:12 36.6 73 22 142/77 97 Room Air 01/10/17 11:35 36.7 55 20 126/64 97 Room Air 01/10/17 08:00 Room Air 01/10/17 07:14 36.5 56 18 136/73 96 Room Air 01/10/17 03:31 36.6 65 20 135/72 97 Room Air 01/10/17 00:00 Room Air 01/09/17 23:28 36.7 60 16 142/74 98 Room Air 01/09/17 19:28 36.5 59 20 143/71 98 Room Air Physical Exam General Appearance: no apparent distress ENT: pharynx normal Neck: no JVD Respiratory/Chest: lungs clear, no respiratory distress, no accessory muscle use Cardiovascular: regular rate, rhythm, no gallop, no murmur Abdomen: normal bowel sounds, non tender, soft, no organomegaly Extremities: no pedal edema Neurologic/Psychiatric: alert, oriented x 3 Laboratory Results Last 24 Hours Test 01/10/17 05:12 Total Bilirubin 0.3 mg/dl Direct Bilirubin < 0.1 mg/dl Aspartate Amino Transf (AST/SGOT) 24 U/L Alanine Aminotransferase (ALT/SGPT) 79 U/L Alkaline Phosphatase 103 U/L Total Protein 5.7 gm/dl Albumin 2.7 gm/dl Assessment and Plan 71-year-old male with: 1. probable toxic encephalopathy - resolved. 2. pain due to mets from prostate ca - improved with titration of fentanyl patch to 125mcg q3d d/c IV dilaudid use Dilaudid 6 mg po q 3 h prn and adjust as needed Continue Celebrex 100 mg po BID Continue lidocaine patch 3. anxiety - controlled with ativan prn 4. GERD - PPI 5. abnormal LFTs - thought 2nd to recent use of optivo - LFTs nearly normal today d/c IV steroids transition to po prednisone today 6. stage 4 prostate ca - Palliative care consult appreciated. He is contemplating initiation of hospice. DNR status remains. 7. neuropathy - stable on gabapentin 600 mg QID 8. DVT prophylaxis - Lovenox 40 mg daily 9. recent diarrhea - improved PT, OT evals appreciated SW help appreciated dispo - [facility] when bed is available Continued [facility] stay due to: inadequate oral pain control Discharge planning: [facility] facility
[2017-01-10 19:27] VITALS: BP 148/80; PULSE 66; TEMP 36.5; O2SAT 96
[2017-01-10] MEDS: TAMSULOSIN HCL 0.4 MG CAP PO SCH (20:27)
[2017-01-10 23:10] VITALS: BP 138/73; PULSE 50; TEMP 36.5; O2SAT 98
[2017-01-11 03:27] VITALS: BP 123/66; PULSE 61; TEMP 36.6; O2SAT 97
[2017-01-11 07:35] VITALS: BP 133/68; PULSE 52; TEMP 36.6; O2SAT 98
[2017-01-11] MEDS: CeleBREX 100 MG CAP PO SCH ×2 (07:44→20:41)
[2017-01-11] MEDS: GABAPENTIN 600 MG TAB PO SCH ×4 (07:44→20:41)
[2017-01-11] MEDS: LIDODERM (LIDOCAINE) PATCH 5% TD SCH (07:44)
[2017-01-11] MEDS: ENOXAPARIN 40 MG/0.4 ML SYR SQ SCH (07:44)
[2017-01-11] MEDS: ALLOPURINOL 100 MG TAB PO SCH ×2 (07:45→20:42)
[2017-01-11] MEDS: SUCRALFATE 1 GM TAB PO SCH ×4 (07:45→20:41)
[2017-01-11] MEDS: PANTOprazole SOD 40 MG TAB PO SCH (07:45)
[2017-01-11] MEDS: HYDROmorphone HCL 2 MG TAB PO PRN ×4 (07:45→16:36)
[2017-01-11] MEDS: CHECK FENTANYL PATCH PLACEMENT SCH ×3 (07:47→15:30)
[2017-01-11] MEDS: CHECK SCOPOLAMINE PATCH PLACEMENT SCH ×2 (07:47→15:30)
[2017-01-11] MEDS: ONDANSETRON INJ 2 MG/ML 2 ML VIAL IV PRN ×3 (07:52→21:21)
[2017-01-11] MEDS ORDERED: FENTANYL PATCH REMOVE & WASTE SCH ×4 (09:29→12:29)
[2017-01-11] MEDS ORDERED: FENTANYL 75 MCG/HR TDSY TD SCH (10:45)
[2017-01-11] MEDS ORDERED: ATV5 PO (10:57)
[2017-01-11] MEDS ORDERED: SCOP1DIS14 TD (10:57)
[2017-01-11] MEDS ORDERED: PRED10TA PO (10:57)
[2017-01-11] MEDS ORDERED: DLD2 PO (10:57)
[2017-01-11] MEDS ORDERED: DRGTP75 TD (10:57)
[2017-01-11] MEDS ORDERED: LDDP5 TD (10:57)
[2017-01-11] MEDS ORDERED: SUCR1TAB PO (10:57)
[2017-01-11] MEDS ORDERED: TUMS PO (10:57)
--- NOTE | 2017-01-11 11:03 | Discharge Instructions ---
Discharge Instructions Date of Service Jan 11, 2017. (Mayela Tatum PA-C) Admission Reason for Admission: Abdominal Pain, Altered Mental Status, Back Pain (Mayela Tatum PA-C) Discharge Discharge Diagnosis / Problem: metabolic encephalopathy secondary to polypharmacy (Mayela Tatum PA-C) Discharge Goals Goal(s): Decrease discomfort, Improve function (Mayela Tatum PA-C) Activity Recommendations Activity Limitations: resume your previous activity . (Mayela Tatum PA-C) Instructions / Follow-Up Instructions / Follow-Up You had been treated in the hospital for altered mental status. This is thought to be secondary to your narcotic medication. The following changes/additions have been made to your medication list: -Fentanyl patch has been increased to 125 g every 3 days -Dilaudid has been increased to 6 mg tabs every 3 hours as needed for pain -Ativan 0.5 mg by mouth every 6 hours as needed for anxiety -Scopolamine patch every 3 days as needed for nausea -Prednisone taper-please take as directed It has been decided that you are not going to continue chemotherapy Please follow-up with your primary care physician within one week Call your doctor with any new medical concerns (Mayela Tatum PA-C) Current Hospital Diet Patient's current hospital diet: Regular Diet (Mayela Tatum PA-C) Discharge Diet Recommended Diet: Regular Diet (Mayela Tatum PA-C) Procedures Procedures Performed: CT head No acute intracranial abnormality. Chest xray Negative chest. CT abdomen and pelvis IMPRESSION: 1. Progressive hepatic metastasis 2. Progressive retroperitoneal, and perirenal lymphadenopathy/metastatic disease 3. Blastic skeletal metastasis. 4. No evidence of bowel obstruction. No evidence of free air 5. Left-sided hydronephrosis 6. Bowel containing ventral hernia. No current evidence of obstruction. (Mayela Tatum PA-C) Pending Studies Studies pending at discharge: no (Mayela Tatum PA-C) Medical Emergencies . Who to Call and When: Medical Emergencies: If at any time you feel your situation is an emergency, please call 911 immediately. . (Mayela Tatum PA-C) Non-Emergent Contact Non-Emergency issues call your: Primary Care Provider . (Mayela Tatum PA-C) . "Provider Documentation" section prepared by Mayela Tatum. (Mayela Tatum PA-C) VTE Core Measure Inpt VTE Proph given/why not?: Enoxaparin (Lovenox)SQ (Mayela Tatum PA-C)
[2017-01-11 11:14] VITALS: BP 134/73; PULSE 70; TEMP 36.7; O2SAT 95
--- NOTE | 2017-01-11 11:15 | Discharge Summary ---
Discharge Summary Date of Service Jan 11, 2017. (Mayela Tatum PA-C) Discharge Summary Admission Date: Jan 05, 2017 at 14:57 Discharge Date: Jan 11, 2017 Discharge Disposition: assisted facility Principal Diagnosis: metabolic encephalopathy secondary to narcotics Problems/Secondary Diagnoses: Metastatic prostate cancer Chronic pain Anxiety Immunizations: Have You Had Influenza Vaccine: Yes Influenza Vaccine Date: Nov 12, 2013 History of Tetanus Vaccine?: utd Tetanus Immunization Date: Nov 12, 2013 History of Pneumococcal: Yes Pneumococcal Date: Nov 12, 2013 History of Hepatitis B Vaccine: No Procedures: CT head No acute intracranial abnormality. Chest xray Negative chest. CT abdomen and pelvis IMPRESSION: 1. Progressive hepatic metastasis 2. Progressive retroperitoneal, and perirenal lymphadenopathy/metastatic disease 3. Blastic skeletal metastasis. 4. No evidence of bowel obstruction. No evidence of free air 5. Left-sided hydronephrosis 6. Bowel containing ventral hernia. No current evidence of obstruction. Consultations: Palliative care (Mayela Tatum PA-C) Medication Reconciliation New Medications: Fentanyl (Duragesic) 50 Mcg Tdsy 125 MCG TD CQ72HR for 21 Days, #7 PATCH Prednisone Tab (Prednisone) 10 Mg Tab 10 MG PO UD, #32 TAB 4 tabs x 2 days 3 tabs x 2 days 2 tabs x 2 days 1 tab x 2 days then resume home dose of 1/2 tab per day Calcium Carbonate (Tums) 500 Mg Chew 1000 MG PO Q6 PRN for Heartburn for 30 Days, #240 TAB Hydromorphone HCl (Hydromorphone HCl) 2 Mg Tab 6 MG PO Q3H PRN for Pain for 3 Days, #24 TAB Lidocaine (Lidocaine) 1 Patch Tdsy 1 PATCH TD QAM for 30 Days, #30 PATCH Lorazepam (Lorazepam) 0.5 Mg Tab 0.5 MG PO Q6H PRN for Anxiety for 3 Days, #18 TAB Scopolamine (Transderm-Scop) 1 Mg/3 Days Dis 1.5 MG TD Q72H for 21 Days, #7 PATCH Sucralfate (Sucralfate) 1 Gm Tab 1 GM PO QID for 20 Days, #80 TAB Continued Medications: Allopurinol (Zyloprim) 100 Mg Tab 100 MG PO BID, TAB Colesevelam (Welchol) 625 Mg Tab 625 MG PO TID, TAB Gabapentin (Gabapentin) 600 Mg Tab 600 MG PO QID Pantoprazole (Protonix) 40 Mg Tab 40 MG PO DAILY, #60 Tamsulosin Hcl (Flomax) 0.4 Mg Cap 0.4 MG PO QPM, CAP Discontinued Medications: Fentanyl (Fentanyl) 100 Mcg Tdsy 100 MCG TD CQ72HR Hydromorphone Hcl (Dilaudid) 4 Mg Tab 1-2 TAB PO QID MDD 4 for 30 Days, #120 TAB Leuprolide Acetate (Lupron Depot) 30 Mg Kit 30 MG IM [id number] 07/05/16 Prednisone (Prednisone) 5 Mg Tab 5 MG PO DAILY, #30 Discharge Exam Patient is complaining of some pain in his lower back this morning. Denies any nausea. Moving his bowels. No fever or chills Review of Systems: Constitutional: No fever Respiratory: No shortness of breath Cardiovascular: No chest pain Abdomen: No nausea Physical Exam: General Appearance: no apparent distress Eyes: EOMI Neck: no JVD Respiratory/Chest: lungs clear Cardiovascular: regular rate, rhythm Abdomen / GI: normal bowel sounds, non tender, soft Extremities: no calf tenderness, no pedal edema Neurologic/Psychiatric: no motor/sensory deficits, oriented x 3 (Mayela Tatum, PATamraC) Hospital Course 71-year-old male presented to the emergency department with altered mental status that has now resolved. Thought to be secondary to polypharmacy/narcotic overdose. Metabolic encephalopathy secondary to narcotic overdose-resolved -Fentanyl increased to 125 g daily -Continue Dilaudid 6 mg po q 3 h prn -Continue Celebrex 100 mg po BID -Continue lidocaine patch Depression and anxiety-some of the patient's pain and nausea could be related to this. -Ativan 0.5 mg po every 6 hours prn added Acid reflux-improved -Continue PPI -Continue Tums, Maalox, carafate and GI cocktail prn Metastatic prostate cancer-disease appears to be progressing -Palliative care consult appreciated. Patient will likely pursue hospice. 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-LFTs normalizing -Solu-Medrol 40 mg IV BID--> transition to prednisone 20 mg po BID-->continue taper upon d/c Neuropathy -Continue gabapentin 600 mg QID DVT prophylaxis -Lovenox 40 mg subcutaneous once daily CODE STATUS -LEVEL V DO NO RESUSCITATE DISPO -awaiting acceptance at [facility]. -medically stable for d/c Total Time Spent: Greater than 30 minutes This includes examination of the patient, discharge planning, medication reconciliation, and communication with other providers. (Mayela Tatum, ARMONDC) Discharge Instructions Please refer to the electronic Patient Visit Report (Discharge Instructions) for additional information. (Mayela Tatum PA-C) Additional Copies To Kev Telles D.O.; Jose Antonio Brock M.D.
[2017-01-11 11:37] VITALS: BP 134/73; PULSE 70; TEMP 36.7; O2SAT 95
[2017-01-11] MEDS ORDERED: FNTTP50 TD (12:07)
[2017-01-11] MEDS ORDERED: FENTANYL 100 MCG/HR TDSY TD SCH (12:30)
[2017-01-11] MEDS ORDERED: FENTANYL 25 MCG/HR TDSY TD SCH (12:30)
--- NOTE | 2017-01-11 13:32 | Hospitalist Progress Note ---
Hospitalist Progress Note Date of Service Jan 11, 2017. (Mayela Tatum PA-C) Subjective Pt evaluation today including: conversation w/ patient, physical exam, chart review, review of inpatient medication list Patient complaining of mild pain in his back. Abdominal pain is okay today. Denies any nausea. No symptoms of acid reflux. Additional Comments: 6 system review negative. Please see pertinent positives in the history of present illness section. (Mayela Tatum PA-C) Objective Vital Signs Date Time Temp Pulse Resp B/P Pulse Ox O2 Delivery O2 Flow Rate FiO2 01/11/17 11:37 36.7 70 20 95 Room Air 01/11/17 11:14 36.7 70 20 134/73 95 Room Air 01/11/17 08:00 Room Air 01/11/17 07:35 36.6 52 20 133/68 98 Room Air 01/11/17 03:27 36.6 61 16 123/66 97 Room Air 01/11/17 00:20 Room Air 01/10/17 23:10 36.5 50 16 138/73 98 Room Air 01/10/17 20:55 Room Air 01/10/17 19:27 36.5 66 20 148/80 96 Room Air 01/10/17 16:00 Room Air 01/10/17 15:12 36.6 73 22 142/77 97 Room Air (Mayela Tatum PA-C) Physical Exam General Appearance: no apparent distress Neck: no JVD Respiratory/Chest: lungs clear Cardiovascular: regular rate, rhythm Abdomen: normal bowel sounds, non tender, soft Extremities: non-tender, no pedal edema Neurologic/Psychiatric: no motor/sensory deficits, oriented x 3 Skin: warm/dry (Mayela Tatum PA-C) Assessment and Plan 71-year-old male presented to the emergency department with altered mental status that has now resolved. Thought to be secondary to polypharmacy/narcotic overdose. Metabolic encephalopathy secondary to narcotic overdose-resolved -Fentanyl increased to 125 g daily -Continue Dilaudid 6 mg po q 3 h prn -Continue Celebrex 100 mg po BID -Continue lidocaine patch Depression and anxiety- -Ativan 0.5 mg po every 6 hours prn added-->helping Acid reflux-improved -Continue PPI -Continue Tums, Maalox, carafate and GI cocktail prn Metastatic prostate cancer-disease appears to be progressing -Palliative care consult appreciated. Patient will likely pursue hospice. 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-LFTs normalizing -Solu-Medrol 40 mg IV BID--> transition to prednisone 20 mg po BID-->continue taper upon d/c Neuropathy -Continue gabapentin 600 mg QID DVT prophylaxis -Lovenox 40 mg subcutaneous once daily CODE STATUS -LEVEL V DO NO RESUSCITATE DISPO -awaiting acceptance at [facility]. -medically stable for d/c (Mayela Tatum, PATamraC) Attending Attestation: Pt seen/examined, chart reviewed, care plan d/w PA Mayela Tatum. I agree w/ the parkinson components of her documentation. Pt required 5 doses of oral dilaudid over the last 24 hours. Still with back pain despite the dilaudid. VSS no fever gen - lying in bed, NAD mouth - no thrush heart - RRR, s1, s2 lungs - CTA b/l abd - soft, NT, BS+, no HSM ext - no edema A/P: 1. recent toxic encephalopathy - resolved. 2. stage 4 progressive prostate ca with bony mets, hepatic mets, and significant lymphadenopathy intra-abdominally - pain ongoing but improved. Would hold off on increase in fentanyl today since the dose was just increased 3 -4 days ago. Could consider increase in dilaudid to 8mg q3h as the current 6mg is only lasting 1-2 hours. 3. anxiety - improved w/ ativan. 4. deconditioning - PT, OT both recommending rehab. awaiting Tx to [facility] for such. patient likely to pursue hospice in the near future and daughter updated at bedside today Lars Orozco MD (Lars Orozco MD)
[2017-01-11 15:45] VITALS: BP 151/80; PULSE 71; TEMP 36.6; O2SAT 92
[2017-01-11 20:31] VITALS: BP 149/78; PULSE 63; TEMP 36.4; O2SAT 99
[2017-01-11] MEDS: TAMSULOSIN HCL 0.4 MG CAP PO SCH (20:41)
[2017-01-12] VITALS (8 sets, daily range): BP systolic 105–150; BP diastolic 63–76; PULSE 52–78; TEMP 36.3–36.7; O2SAT 96–98
[2017-01-12] MEDS: CHECK FENTANYL PATCH PLACEMENT SCH ×4 (00:47→23:47)
[2017-01-12] MEDS: CHECK SCOPOLAMINE PATCH PLACEMENT SCH ×4 (00:47→23:46)
[2017-01-12] MEDS: ONDANSETRON INJ 2 MG/ML 2 ML VIAL IV PRN ×2 (07:17→14:52)
[2017-01-12] MEDS: CeleBREX 100 MG CAP PO SCH ×2 (08:47→20:10)
[2017-01-12] MEDS: GABAPENTIN 600 MG TAB PO SCH ×4 (08:48→20:08)
[2017-01-12] MEDS: SUCRALFATE 1 GM TAB PO SCH ×4 (08:48→20:09)
[2017-01-12] MEDS: LIDODERM (LIDOCAINE) PATCH 5% TD SCH (08:48)
[2017-01-12] MEDS: PANTOprazole SOD 40 MG TAB PO SCH (08:48)
[2017-01-12] MEDS: ALLOPURINOL 100 MG TAB PO SCH ×2 (08:48→20:10)
[2017-01-12] MEDS: ENOXAPARIN 40 MG/0.4 ML SYR SQ SCH (08:55)
[2017-01-12] MEDS ORDERED: PROMETHAZINE HCL INJ 12.5 MG in SODIUM CHLORIDE 0.9% 50ML 50 ML IV PRN (10:15)
[2017-01-12 10:58] LABS: BASO % 0.1 %; BASO ABS # 0.01 K/uL (0-0.2); COMPLETE YES; EOS % 0.2 %; HEMATOCRIT 31.2 % (42-52); IG% 0.5 %; LYMPH % 6.3 %; LYMPH ABS # 0.78 K/uL (1.2-3.4); MEAN CELL VOLUME 87.6 fL (80-100); MEAN CORPUSCULAR HEMOGLOBIN 30.1 pg (25-34); MEAN CORPUSCULAR HGB CONC 34.3 g/dl (32-36); MONO % 0.9 %; PLATELET COUNT 175 K/uL (130-400); RED BLOOD COUNT 3.56 M/uL (4.7-6.1); WHITE BLOOD COUNT 12.33 K/uL (4.8-10.8)
[2017-01-12 11:27] LABS: BUN/CREATININE RATIO 17.4 (10-20); CALCIUM 7.9 mg/dl (8.5-10.1); CREATININE 0.62 mg/dl (0.60-1.40); POTASSIUM 3.4 mmol/L (3.5-5.1)
[2017-01-12] MEDS: SCOPOLAMINE 1.5 MG TDSY TD SCH (13:00)
--- NOTE | 2017-01-12 14:05 | DIAGNOSTIC IMAGING REPORT ---
ABDOMEN 2VIEW W/PA CHEST RTN CLINICAL HISTORY: vomiting ? Ileus, obstruction pain. Nausea. COMPARISON STUDY: 01/05/2017 FINDINGS: Lungs remain clear. No evidence for cardiac enlargement. Bowel pattern within the abdomen is nonobstructive. Blastic bony metastatic change is noted. IMPRESSION: 1. No acute process the chest. 2. Nonobstructive bowel pattern. 3. Osseous bony metastatic change Electronically signed by: Dwight Ziegler M.D. 01/12/2017 2:04 PM Dictated Date/Time: 01/12/2017 2:02 PM
--- NOTE | 2017-01-12 14:57 | Hospitalist Progress Note ---
Hospitalist Progress Note Date of Service Jan 12, 2017. (Mayela Tatum PA-C) Subjective Pt evaluation today including: conversation w/ patient, conversation w/ family , physical exam, chart review, lab review, review of inpatient medication list Patient reports feeling nauseated this morning. Had 2 episodes of vomiting after eating some toast. Received Zofran. Feeling slightly better. Denies abdominal pain. Had 2 bowel movements yesterday that were reportedly normal. Denies fever or chills. Additional Comments: 6 system review negative. Please see pertinent positives in the history of present illness section. (Mayela Tatum PA-C) Objective Vital Signs Date Time Temp Pulse Resp B/P Pulse Ox O2 Delivery O2 Flow Rate FiO2 01/12/17 11:32 36.6 74 12 143/73 97 Room Air 01/12/17 09:00 Room Air 01/12/17 07:30 Room Air 01/12/17 07:27 36.5 78 12 150/76 96 Room Air 01/12/17 04:34 36.5 69 16 113/64 97 Room Air 01/12/17 00:29 36.3 52 16 105/64 98 Room Air 01/12/17 00:01 Room Air 01/11/17 20:31 36.4 63 20 149/78 99 Room Air 01/11/17 20:00 Room Air 01/11/17 16:00 Room Air 01/11/17 15:45 36.6 71 18 151/80 92 Room Air (Mayela Tatum PA-C) Physical Exam General Appearance: + mild distress Eyes: EOMI ENT: + pertinent finding (oral mucosa fairly moist) Neck: no JVD Respiratory/Chest: lungs clear Cardiovascular: regular rate, rhythm Abdomen: normal bowel sounds, non tender, soft Extremities: non-tender, no pedal edema Neurologic/Psychiatric: no motor/sensory deficits Skin: warm/dry (Mayela Tatum PA-C) Laboratory Results Last 24 Hours Test 01/12/17 10:50 White Blood Count 12.33 K/uL Red Blood Count 3.56 M/uL Hemoglobin 10.7 g/dL Hematocrit 31.2 % Mean Corpuscular Volume 87.6 fL Mean Corpuscular Hemoglobin 30.1 pg Mean Corpuscular Hemoglobin Concent 34.3 g/dl Platelet Count 175 K/uL Mean Platelet Volume 9.0 fL Neutrophils (%) (Auto) 92.0 % Lymphocytes (%) (Auto) 6.3 % Monocytes (%) (Auto) 0.9 % Eosinophils (%) (Auto) 0.2 % Basophils (%) (Auto) 0.1 % Neutrophils # (Auto) 11.34 K/uL Lymphocytes # (Auto) 0.78 K/uL Monocytes # (Auto) 0.11 K/uL Eosinophils # (Auto) 0.03 K/uL Basophils # (Auto) 0.01 K/uL RDW Standard Deviation 46.9 fL RDW Coefficient of Variation 14.5 % Immature Granulocyte % (Auto) 0.5 % Immature Granulocyte # (Auto) 0.06 K/uL Sodium Level 125 mmol/L Potassium Level 3.4 mmol/L Chloride Level 88 mmol/L Carbon Dioxide Level 29 mmol/L Anion Gap 8.0 mmol/L Blood Urea Nitrogen 11 mg/dl Creatinine 0.62 mg/dl Est Creatinine Clear Calc Drug Dose 102.2 ml/min Estimated GFR () 115.7 Estimated GFR (Non- 99.8 BUN/Creatinine Ratio 17.4 Random Glucose 98 mg/dl Calcium Level 7.9 mg/dl Total Bilirubin 0.4 mg/dl Aspartate Amino Transf (AST/SGOT) 29 U/L Alanine Aminotransferase (ALT/SGPT) 54 U/L Alkaline Phosphatase 100 U/L Total Protein 5.9 gm/dl Albumin 2.9 gm/dl Globulin 3.0 gm/dl Albumin/Globulin Ratio 1.0 Lipase 42 U/L (Mayela Tatum, PA-C) Assessment and Plan 71-year-old male presented to the emergency department with altered mental status that has now resolved. Thought to be secondary to polypharmacy/narcotic overdose. Metabolic encephalopathy secondary to narcotic overdose-resolved -Fentanyl increased to 125 g daily -Continue Dilaudid 6 mg po q 3 h prn -Continue Celebrex 100 mg po BID -Continue lidocaine patch Vomiting-? Narc related -Abdominal films to assess for fecal retention/impaction/ileus -CBC, CMP -Zofran 4 mg IV every 6 hours as needed -Add Phenergan 12.5 g every 6 hours in addition to the Zofran Depression and anxiety- -Ativan 0.5 mg po every 6 hours prn Acid reflux-improved -Continue PPI -Continue Nilsa Mauriciox, carafate and GI cocktail prn Metastatic prostate cancer-disease appears to be progressing -Pain better controlled -Plan is to be discharged home to pursue hospice 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-LFTs improved -Solu-Medrol 40 mg IV BID--> transition to prednisone 20 mg po BID-->Will decrease dose in AM Neuropathy -Continue gabapentin 600 mg QID DVT prophylaxis -Lovenox 40 mg subcutaneous once daily CODE STATUS -LEVEL V DO NO RESUSCITATE DISPO -Insurance denied authorization for [facility] -Plan is to return home with home hospice hopeful first DC tomorrow -Hopeful for discharge tomorrow pending vomiting (Mayela Tatum, PATamraC) Attending Attestation: Pt seen/examined, chart reviewed, care plan d/w SKY Tatum. I agree w/ the parkinson components of her documentation. Overall pain has been better in the last 24 hours. However, following dinner last pm, he had mild nausea. This AM he had nausea again along with vomiting. No abd pain. VSS no fever gen - lying in bed, NAD - has washcloth on forehead for comfort mouth - no thrush, MM largely moist heart - RRR, s1, s2 lungs - CTA b/l abd - soft, NT, BS+, no HSM, nondistended ext - no edema A/P: 1. recent toxic encephalopathy - resolved. 2. stage 4 progressive prostate ca with bony mets, hepatic mets, and significant lymphadenopathy intra-abdominally - pain largely controlled w/ fentanyl patch + dilaudid prn breakthrough no changes today in regimen 3. anxiety - ativan. 4. vomiting, nausea - agree with phenergan prn. could be gastritis vs poor GI motility from copious narcotics vs mechanical ileus/SBO vs other x-rays obtained - largely normal, although per my reading had copious amount of gastric air lower diet to full liquids hydrate with NS 5. hyponatremia - Urine Na and Urine osm not c/w SIADH low Na likely due to vomiting, poor oral intake, etc NSS at 100cc/hr repeat BMP am dispo - home with hospice denied SNF placement by insurance Lars Orozco MD (Lars Orozco MD)
[2017-01-12] MEDS: HYDROmorphone HCL 2 MG TAB PO PRN ×3 (16:58→23:45)
[2017-01-12] MEDS ORDERED: SODIUM CHLORIDE 0.9% 1000ML 1,000 ML IV SCH (17:45)
[2017-01-12] MEDS ORDERED: POTASSIUM CHLORIDE INJ 20 MEQ in SODIUM CHLORIDE 0.9% 1000ML 1,000 ML IV SCH (18:00)
[2017-01-12] MEDS: NSS + 20MEQ KCL 1000ML 1,000 ML IV SCH (18:50)
[2017-01-12] MEDS: TAMSULOSIN HCL 0.4 MG CAP PO SCH (20:10)
[2017-01-13 04:20] VITALS: BP 136/76; PULSE 68; TEMP 36.5; O2SAT 99
[2017-01-13] MEDS: NSS + 20MEQ KCL 1000ML 1,000 ML IV SCH ×3 (04:33→23:03)
[2017-01-13 07:06] VITALS: BP 183/85; PULSE 93; TEMP 36.5; O2SAT 93
[2017-01-13 07:16] LABS: BUN/CREATININE RATIO 12.8 (10-20); CALCIUM 7.6 mg/dl (8.5-10.1); CREATININE 0.61 mg/dl (0.60-1.40); POTASSIUM 3.8 mmol/L (3.5-5.1)
[2017-01-13] MEDS: CHECK SCOPOLAMINE PATCH PLACEMENT SCH ×3 (07:45→23:34)
[2017-01-13] MEDS: ONDANSETRON INJ 2 MG/ML 2 ML VIAL IV PRN ×2 (07:45→20:29)
[2017-01-13] MEDS: CHECK FENTANYL PATCH PLACEMENT SCH ×3 (07:45→23:33)
[2017-01-13] MEDS: CeleBREX 100 MG CAP PO SCH (07:47)
[2017-01-13] MEDS: PANTOprazole SOD 40 MG TAB PO SCH (07:48)
[2017-01-13] MEDS: ALLOPURINOL 100 MG TAB PO SCH ×2 (07:48→20:25)
[2017-01-13] MEDS: ENOXAPARIN 40 MG/0.4 ML SYR SQ SCH (07:49)
[2017-01-13] MEDS: GABAPENTIN 600 MG TAB PO SCH ×4 (07:49→20:24)
[2017-01-13] MEDS: SUCRALFATE 1 GM TAB PO SCH ×3 (07:49→16:33)
[2017-01-13] MEDS: LIDODERM (LIDOCAINE) PATCH 5% TD SCH (07:51)
[2017-01-13] MEDS: HYDROmorphone HCL 2 MG TAB PO PRN ×6 (07:55→23:32)
[2017-01-13 12:09] VITALS: BP 132/73; PULSE 76; TEMP 36.6; O2SAT 96
--- NOTE | 2017-01-13 13:41 | Hospitalist Progress Note ---
Hospitalist Progress Note Date of Service Jan 13, 2017. (Mayela Tatum PA-C) Subjective Pt evaluation today including: conversation w/ patient, conversation w/ family , physical exam, chart review, lab review, review of inpatient medication list Patient says the nausea is mildly improved. He was able to tolerate a small breakfast this morning. Medication is helping. Denies any significant pain. Had 2 loose bowel movements yesterday. No abdominal pain. No fever or chills. Additional Comments: 6 system review performed and negative unless otherwise noted (Mayela Tatum PA-C) Objective Vital Signs Date Time Temp Pulse Resp B/P Pulse Ox O2 Delivery O2 Flow Rate FiO2 01/13/17 12:09 36.6 76 20 132/73 96 Room Air 01/13/17 07:30 Room Air 01/13/17 07:06 36.5 93 20 183/85 93 Room Air 01/13/17 04:20 36.5 68 18 136/76 99 Room Air 01/13/17 00:00 Room Air 01/12/17 23:47 36.7 73 18 115/63 98 Room Air 01/12/17 20:21 36.5 73 16 127/69 97 Room Air 01/12/17 16:00 Room Air 01/12/17 15:50 36.7 73 18 107/65 96 Room Air (Mayela Tatum PA-C) Physical Exam General Appearance: no apparent distress Eyes: EOMI ENT: + pertinent finding (oral mucosa slightly dry) Neck: no JVD Respiratory/Chest: lungs clear Cardiovascular: regular rate, rhythm Abdomen: normal bowel sounds, non tender, soft Extremities: non-tender, no pedal edema Neurologic/Psychiatric: no motor/sensory deficits, oriented x 3 Skin: warm/dry (Mayela Tatum PA-C) Laboratory Results 01/13/17 06:07 Test 01/12/17 17:00 01/13/17 06:07 Urine Osmolality 365 mOms/kg (500-800) Urine Random Sodium 33 mEq/L Anion Gap 8.0 mmol/L (3-11) Est Creatinine Clear Calc Drug Dose 103.8 ml/min Estimated GFR () 116.5 Estimated GFR (Non- 100.5 BUN/Creatinine Ratio 12.8 (10-20) Calcium Level 7.6 mg/dl (8.5-10.1) Magnesium Level 2.0 mg/dl (1.8-2.4) Last 24 Hours Test 01/12/17 17:00 01/13/17 06:07 Urine Osmolality 365 mOms/kg Urine Random Sodium 33 mEq/L Sodium Level 127 mmol/L Potassium Level 3.8 mmol/L Chloride Level 92 mmol/L Carbon Dioxide Level 27 mmol/L Anion Gap 8.0 mmol/L Blood Urea Nitrogen 8 mg/dl Creatinine 0.61 mg/dl Est Creatinine Clear Calc Drug Dose 103.8 ml/min Estimated GFR () 116.5 Estimated GFR (Non- 100.5 BUN/Creatinine Ratio 12.8 Random Glucose 93 mg/dl Calcium Level 7.6 mg/dl Magnesium Level 2.0 mg/dl (Mayela Tatum, [place]MON[place]) Assessment and Plan 71-year-old male presented to the emergency department with altered mental status that has now resolved. Thought to be secondary to polypharmacy/narcotic overdose. Now with nausea and vomiting that started on 01/12 Metabolic encephalopathy secondary to narcotic overdose-resolved -Fentanyl increased to 125 g daily -Continue Dilaudid 6 mg po q 3 h prn -Continue Celebrex 100 mg po BID -Continue lidocaine patch Hyponatremia-urine osmolality and sodium reviewed. Does not pain the picture of SIADH. Possibly secondary to vomiting and poor po intake. -Responded to IV fluids. Continue NS + 20 mEq KCl @ 100 cc/hr for an additional day -Check PRP in the morning Severe protein deficient malnutrition-secondary to anorexia and nausea -Continue prednisone for appetite stimulant Vomiting-? Narc related-no ileus or fecal impaction noted per x-rays performed -Begin Reglan 5 mg po BID scheduled -Continue Zofran and Phenergan every 6 hours as needed for nausea Depression and anxiety -Ativan 0.5 mg po every 6 hours prn Acid reflux-improved -Continue PPI -Continue Tums, Maalox, carafate and GI cocktail prn Metastatic prostate cancer-disease appears to be progressing -Pain better controlled -Hospice is planning on admitting patient inpatient today. -The following changes to his medications will be made. Increase fentanyl patch to 150 g every 72 hours Continue Dilaudid 6 mg every 3 hours as needed for breakthrough pain Change Celebrex 200 mg po BID to Mobitz 7.5 mg daily Change Lidoderm 5% patch daily to Lidocain 4%/Aspercreme over the counter daily 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-LFTs improved -Solu-Medrol 40 mg IV BID--> decrease steroids to 30 mg daily today. Further taper upon discharge. Neuropathy -Continue gabapentin 600 mg QID DVT prophylaxis -Lovenox 40 mg subcutaneous once daily CODE STATUS -LEVEL V DO NO RESUSCITATE DISPO -Insurance denied authorization for [facility] -Admitted to hospice inpatient today -Likely discharge tomorrow with hospice care (Mayela Tatum, PA-C) Attending Attestation: Pt seen/examined, chart reviewed, care plan d/w SKY Tatum. I agree w/ the parkinson components of her documentation. No further emesis. Small amount of nausea intermittently but eating some meals and drinking fluids. +bowel movements. no abd pain feels depressed difficulty swallowing pills VSS no fever gen - depressed mouth - thrush plaques on buccal mucosa - severe heart - RRR, s1, s2 lungs - CTA b/l abd - soft, NT, BS+, no HSM, nondistended ext - no edema A/P: 1. recent toxic encephalopathy - resolved. 2. stage 4 progressive prostate ca with bony mets, hepatic mets, and significant lymphadenopathy intra-abdominally - pain largely controlled w/ fentanyl patch + dilaudid prn breakthrough again no changes today in regimen 3. anxiety - ativan. 4. vomiting, nausea - suspect motility issues from narcotics, +/- gastritis; could even have candidal esophagitis/gastritis schedule reglan 5mg ac/hs treat with diflucan for thrush/possible candidal esophagitis change carafate from tabs to liquid form change protonix to prevacid solutab 5. hyponatremia - improving with NS cont overnight repeat BMP in am dispo - home with hospice - hopefully Monday denied SNF placement by insurance Lars Orozco MD (Lars Orozco MD)
[2017-01-13 15:35] VITALS: BP 138/69; PULSE 74; TEMP 36.4; O2SAT 98
[2017-01-13] MEDS ORDERED: FENTANYL PATCH REMOVE & WASTE SCH (15:59)
[2017-01-13] MEDS ORDERED: FENTANYL 75 MCG/HR TDSY TD SCH (16:00)
[2017-01-13] MEDS ORDERED: FLUCONAZOLE 200 MG/5 ML UDP PO ONE (17:30)
[2017-01-13] MEDS ORDERED: METOCLOPRAMIDE HCL 5 MG TAB PO SCH (20:00)
[2017-01-13] MEDS: TAMSULOSIN HCL 0.4 MG CAP PO SCH (20:24)
[2017-01-13 20:27] VITALS: BP 145/77; PULSE 69; TEMP 36.1; O2SAT 97
[2017-01-13] MEDS: SUCRALFATE 1 GM/10 ML UDC PO SCH (21:45)
[2017-01-13] MEDS: METOCLOPRAMIDE HCL 5 MG TAB PO SCH (21:46)
[2017-01-13 23:08] VITALS: BP 143/70; PULSE 74; TEMP 36.5; O2SAT 96
[2017-01-14 04:07] VITALS: BP 146/71; PULSE 80; TEMP 37; O2SAT 97
[2017-01-14] MEDS: METOCLOPRAMIDE HCL 5 MG TAB PO SCH ×2 (06:11→11:45)
[2017-01-14] MEDS: SUCRALFATE 1 GM/10 ML UDC PO SCH ×2 (06:11→11:45)
[2017-01-14] MEDS: HYDROmorphone HCL 2 MG TAB PO PRN ×3 (06:16→13:03)
[2017-01-14 06:50] LABS: BUN/CREATININE RATIO 6.7 (10-20); CALCIUM 7.9 mg/dl (8.5-10.1); CREATININE 0.52 mg/dl (0.60-1.40); POTASSIUM 4.3 mmol/L (3.5-5.1)
[2017-01-14 07:07] VITALS: BP 134/66; PULSE 80; TEMP 37.1; O2SAT 97
[2017-01-14] MEDS: CHECK FENTANYL PATCH PLACEMENT SCH (07:35)
[2017-01-14] MEDS: CHECK SCOPOLAMINE PATCH PLACEMENT SCH (07:35)
[2017-01-14] MEDS: GABAPENTIN 600 MG TAB PO SCH ×2 (07:37→11:46)
[2017-01-14] MEDS: ALLOPURINOL 100 MG TAB PO SCH (07:37)
[2017-01-14] MEDS: LIDODERM (LIDOCAINE) PATCH 5% TD SCH (07:38)
[2017-01-14] MEDS ORDERED: LANSOPRAZOLE SOLUTAB 30 MG NG SCH (08:00)
[2017-01-14] MEDS ORDERED: FLUCONAZOLE 200 MG/5 ML UDP PO SCH (08:00)
[2017-01-14 11:39] VITALS: BP 116/66; PULSE 78; TEMP 37.2; O2SAT 97
[2017-01-14] MEDS ORDERED: LANS30TA3 NG (12:25)
[2017-01-14] MEDS ORDERED: GABA1SOL3 PO (12:25)
[2017-01-14] MEDS ORDERED: [UNRECOGNIZED DRUG - CODE] PO (12:25)
[2017-01-14] MEDS ORDERED: ATV5 PO (12:25)
[2017-01-14] MEDS ORDERED: HYDR4TAB78 PO (12:25)
[2017-01-14] MEDS ORDERED: METO5TAB3 PO (12:25)
[2017-01-14] MEDS ORDERED: PRED-301 PO (12:25)
[2017-01-14] MEDS ORDERED: FENT75DI2 TOP (12:25)
[2017-01-14] MEDS ORDERED: ONDA8TAB62 SL (12:26)
[2017-01-14] MEDS ORDERED: CRFUDL PO (12:26)
[2017-01-14] MEDS ORDERED: LANS30TA3 PO (12:33)
--- NOTE | 2017-01-14 12:44 | Discharge Instructions ---
Discharge Instructions Date of Service Jan 14, 2017. Admission Reason for Admission: Abdominal Pain, Altered Mental Status, Back Pain, Abnormal liver tests. Discharge Discharge Diagnosis / Problem: abdominal pain and back pain due to prostate cancer. Discharge Goals Goal(s): Decrease discomfort, Improve disease control, Improve nutritional status, Learn about illness, Diagnostic testing, Therapeutic intervention Activity Recommendations Activity Limitations: resume your previous activity (as tolerated) . Instructions / Follow-Up Instructions / Follow-Up From Dr. Orozco - 1. If you have ANY needs, medication questions, worsening pain, worsening nausea or vomiting, difficulty breathing, etc - please contact the Hospice company (Home Nursing Agency) FIRST. 2. For pain - * use fentanyl patches; place TWO 75mcg patches on your skin; replace them every 72 hours. * for "breakthrough pain" use dilaudid (hydromorphone) 4mg tablets; may take 1 or 2 tabs every 3 hours as needed. * ok to use tylenol for any other aches or pains. 3. For nausea, vomiting - * use reglan (metoclopramide) 5mg about 30 minutes before meals and at bedtime; take this EVERY Day. * for any additional nausea not being controlled by the reglan may use, on an as needed basis, zofran 8mg tabs every 6 hours as needed. * scopalamine patch - place behind one of the ears and change every 72 hours. 4. For yeast infection in the mouth and esophagus - * take fluconazole for 8 days; begin this TOMORROW on 01/15/17 5. For heartburn - * take prevacid (lansoprazole) 30mg on the tongue every morning indefinitely. * take carafate liquid 30 minutes prior to meals and at bedtime for about 10 days. 6. To help improve your appetite - * take prednisone * start 01/15/17 * start with 4 tabs day 1, then 3 tabs day 2, then 2 tabs day 3, then 1 tab daily thereafter 7. For anxiety - * take ativan (lorazepam) every 6 hours as needed. Again - for ANY Needs at home please contact the Hospice company FIRST. It has been a pleasure taking care of you at [facility]. All the best to you and your family! -Dr Orozco Current Hospital Diet Patient's current hospital diet: Regular Diet Discharge Diet Recommended Diet: Regular Diet Procedures Procedures Performed: CT head - normal. Chest x-ray - normal. CAT scan of abdomen showing progressive prostate cancer in the lymph nodes and bones. Pending Studies Studies pending at discharge: no Medical Emergencies . Who to Call and When: Medical Emergencies: If at any time you feel your situation is an emergency, please call 911 immediately. . Non-Emergent Contact Non-Emergency issues call your: Specialist (HOSPICE COMPANY) Call Non-Emergent contact if: you have a fever, temperature is above 100.5, your pain is not controlled, your pain is worsening, your pain is unusual for you, your pain is concerning you, you have any medication questions . . "Provider Documentation" section prepared by Lars Orozco. VTE Core Measure Inpt VTE Proph given/why not?: Enoxaparin (Lovenox)SQ
--- NOTE | 2017-01-17 23:25 | Discharge Summary ---
Discharge Summary Date of Service Jan 17, 2017. Discharge Summary Admission Date: Jan 05, 2017 at 14:57 Discharge Date: Jan 14, 2017 Discharge Disposition: Home with services (Hospice) Principal Diagnosis: stage 4 prostate cancer Problems/Secondary Diagnoses: 1. hyponatremia - resolved 2. depression with anxiety 3. severe pain 2nd to metastatic prostate cancer 4. toxic encephalopathy - resolved 5. acute hepatitis likely 2nd to recent chemotherapy 6. BPH 7. gout 8. GERD 9. thrush with suspected candidal esophagitis Immunizations: Have You Had Influenza Vaccine: Yes Influenza Vaccine Date: Nov 12, 2013 History of Tetanus Vaccine?: utd Tetanus Immunization Date: Nov 12, 2013 History of Pneumococcal: Yes Pneumococcal Date: Nov 12, 2013 History of Hepatitis B Vaccine: No Procedures: CT abd/pelvis: IMPRESSION: 1. Progressive hepatic metastasis 2. Progressive retroperitoneal, and perirenal lymphadenopathy/metastatic disease 3. Blastic skeletal metastasis. 4. No evidence of bowel obstruction. No evidence of free air 5. Left-sided hydronephrosis 6. Bowel containing ventral hernia. No current evidence of obstruction. Consultations: palliative care PT, OT Medication Reconciliation New Medications: Ondansetron Odt (Zofran Odt) 8 Mg Soltab 8 MG SL Q6H PRN for Nausea, #30 TAB 0 Refills Calcium Carbonate (Tums) 500 Mg Chew 1000 MG PO Q6 PRN for Heartburn for 30 Days, #240 TAB Fluconazole (Fluconazole) 200 Mg/5 Ml Susp 200 MG PO QAM for 8 Days, #50 ML 0 Refills begin 01/15/17 Lansoprazole (Prevacid Solutab) 30 Mg Tab 30 MG PO QAM, #30 TAB 2 Refills Lidocaine (Lidocaine) 1 Patch Tdsy 1 PATCH TD QAM for 30 Days, #30 PATCH Lorazepam (Lorazepam) 0.5 Mg Tab 0.5 MG PO Q6H PRN for Anxiety, #30 TAB 0 Refills Metoclopramide HCl (Metoclopramide HCl) 5 Mg Tab 5 MG PO ACHS, #120 TAB 2 Refills best to take 20-30 minutes before meals Scopolamine (Transderm-Scop) 1 Mg/3 Days Dis 1.5 MG TD Q72H for 21 Days, #7 PATCH Sucralfate (Sucralfate) 1 Gm/10 Ml Susp 1 GM PO ACHS for 10 Days, #400 ML 0 Refills take 30 minutes prior to meals Changed Medications: Fentanyl (Fentanyl) 75 Mcg/Hr Dis 150 MCG TOP Q72H, #20 0 Refills (Changed from: Fentanyl 100 Mcg Tdsy 100 Mcg TD CQ72HR) Gabapentin (Neurontin) 250 Mg/5 Ml Marie 600 MG PO QID for 30 Days, #700 ML 2 Refills (Changed from: Gabapentin 600 Mg Tab 600 Mg PO QID) Hydromorphone Hcl (Dilaudid) 4 Mg Tab 1-2 TAB PO Q3H PRN for Pain for 30 Days, #120 TAB 0 Refills (Changed from: QID; Removed Max Daily Dose; Refills: ) Prednisone (Prednisone) 5 Mg Tab 5 MG PO DIRECTED, #30 TAB 0 Refills (Changed from: DAILY; Refills: ) starting 01/15/17: take 4 tabs day 1, 3 tabs day 2, 2 tabs day 3, then 1 tab daily thereafter. Continued Medications: Allopurinol (Zyloprim) 100 Mg Tab 100 MG PO BID, TAB Colesevelam (Welchol) 625 Mg Tab 625 MG PO TID, TAB Tamsulosin Hcl (Flomax) 0.4 Mg Cap 0.4 MG PO QPM, CAP Discontinued Medications: Leuprolide Acetate (Lupron Depot) 30 Mg Kit 30 MG IM [id number] /04/14 Pantoprazole (Protonix) 40 Mg Tab 40 MG PO DAILY, #60 Discharge Exam Physical Exam: General Appearance: no apparent distress, + thin ENT: + pertinent finding (thrush plaques improving) Neck: no JVD Respiratory/Chest: lungs clear, no respiratory distress, no accessory muscle use Cardiovascular: regular rate, rhythm, no gallop, no murmur, normal peripheral pulses Abdomen / GI: normal bowel sounds, soft, no organomegaly, + tenderness ( left side of abdomen; surgical scars present) Extremities: no pedal edema Neurologic/Psychiatric: alert, oriented x 3, + depressed affect Hospital Course HISTORY OF PRESENT ILLNESS: 71yo male with history of Metastatic Prostate cancer currently on chemotherapy ( Obdivo) - last dose 2 days ago. He also has chronic pain due to his metastatic cancer and is on Fentanyl patch and oral Dilaudid at home. The patient presented with altered mental status. Much of the history was obtained from the patient's as the patient had minimal recollection. According to the patient's , on the morning of admission, he was found sitting in chair with his "head hanging" and was extremely drowsy. He was later found in the kitchen looking through the cabinets in a confused state and inappropriately responding to questions. She then called his oncologist, Dr. Telles, and was told to come into the ED. EMS was summoned to his home and he was transported to [facility]. Per report there had been no changes in stool, hematochezia, melena, hematemesis. No urinary symptoms. No fever or chills. In the ED, CT Head showed no intracranial abnormality. LFT's were found to be significantly elevated above baseline (AST 590, Alt 358 Alk Phos 224). HOSPITAL COURSE: The following issues were addressed while here - 1. toxic encephalopathy - resolved with supportive care measures. Was felt to be narcotic-related. 2. stage 4 progressive prostate cancer with bony mets, hepatic mets, and significant lymphadenopathy intra-abdominally - fentanyl patch was titrated throughout his stay and at discharge he is using 150mcg q72h. Oral dilaudid dose was adjusted as well. He remains on gabapentin. Pain was reasonably controlled at discharge. 3. anxiety - started on ativan with nice improvement in symptoms. 4. vomiting, nausea - suspected to be due to motility issues from his narcotics , +/- gastritis; could even have candidal esophagitis/gastritis. He was started on scheduled reglan 5mg ac/hs with improved symptoms. He was also treated with diflucan for thrush/possible candidal esophagitis. He remains on PPI and carafate. Should stay on a bowel regimen due to chronic narcotic usage. 5. hyponatremia - resolved with NS hydration. Due to vomiting and poor oral intake. No evidence of SIADH. 6. acute hepatitis/abnormal LFTs - was thought 2nd to obdivo. He received IV steroids followed by an oral prednisone taper. His LFTs normalized prior to discharge. He will remain on low-dose prednisone at home for appetite stimulation. 7. social - Palliative care consultation was obtained and the patient/family were agreeable to hospice. Initially there was hope he could go to a SNF for rehab and treatment of his pain but this was denied by his health insurance. Thus, preparations were made for him to return HOME ON HOSPICE. He will in fact return home on hospice. He is a DNR/DNI. Total Time Spent: Greater than 30 minutes This includes examination of the patient, discharge planning, medication reconciliation, and communication with other providers. Discharge Instructions Please refer to the electronic Patient Visit Report (Discharge Instructions) for additional information. Follow-Up with hospice at home Additional Copies To Kev Telles D.O.; Jose Antonio Brock M.D.
[2017-02-05] MEDS ORDERED: SCOP1DIS14 TD (18:02)
== END 2017-01-14 13:19 | disposition hospice, home (50) | DRG 917 ==
LOC: ENRESERVTM → ENRESERVDT → EDBD 10:06 → C.EDC 10:07 → C.4E 14:57
PROVIDERS: ADMIT Internal Medicine; ATTEND Internal Medicine
DX: T40.601A Poisoning by unspecified narcotics, accidental (unintentional), initial encounter (principal); G92 Toxic encephalopathy; E43 Unspecified severe protein-calorie malnutrition; E87.1 Hypo-osmolality and hyponatremia; C79.51 Secondary malignant neoplasm of bone; C78.7 Secondary malignant neoplasm of liver and intrahepatic bile duct; B37.81 Candidal esophagitis; C61 Malignant neoplasm of prostate; Z80.0 Family history of malignant neoplasm of digestive organs; Z66 Do not resuscitate; Z51.5 Encounter for palliative care; T45.1X5A Adverse effect of antineoplastic and immunosuppressive drugs, initial encounter; K21.9 Gastro-esophageal reflux disease without esophagitis; K75.9 Inflammatory liver disease, unspecified; G62.9 Polyneuropathy, unspecified; Z85.00 Personal history of malignant neoplasm of unspecified digestive organ; Z90.49 Acquired absence of other specified parts of digestive tract; R74.0 Nonspecific elevation of levels of transaminase and lactic acid dehydrogenase [LDH]; G89.3 Neoplasm related pain (acute) (chronic); F32.9 Major depressive disorder, single episode, unspecified; F41.9 Anxiety disorder, unspecified; R63.0 Anorexia; R59.1 Generalized enlarged lymph nodes

== ENCOUNTER 2017-02-05 17:16 | Inpatient (IN) | payer BC, OTHER ==
[~2017-02-05] VITALS: Ht 165.1 cm; Wt 54.9 kg
[~2017-02-05 17:16] MED LIST changes: +ATV5 PO; +CRFUDL PO; -FENT75DI2 TD; +FENT75DI2 TOP; +GABA1SOL3 PO; +LANS30TA3 PO; +LDDP5 TD; -LEUP30IN3 IM; +METO5TAB3 PO; -NF656 TD; -NRN600 PO; +ONDA8TAB62 SL; -PANT40TA PO; +SCOP1.5D2 TD; +TUMS PO; +[UNRECOGNIZED DRUG - CODE] PO
[2017-02-05] MEDS ORDERED: ALL100 PO (18:02)
[2017-02-05] MEDS ORDERED: PROM25TA16 PO (18:02)
[2017-02-05] MEDS ORDERED: SCOP1.5D2 TD (18:02)
[2017-02-05] MEDS ORDERED: FLM4 PO (18:02)
[2017-02-05] MEDS ORDERED: HYDR4TAB2 PO (18:02)
[2017-02-05] MEDS ORDERED: WLC625 PO (18:02)
[2017-02-05] MEDS ORDERED: ONDA8TAB62 SL (18:04)
[2017-02-05] MEDS ORDERED: LORA-741 PO (18:04)
[2017-02-05] MEDS ORDERED: SODIUM CHLORIDE 0.9% 1000ML 1,000 ML IV ONE (18:05)
[2017-02-05] MEDS ORDERED: ONDANSETRON INJ 2 MG/ML 2 ML VIAL IV STA (18:05)
[2017-02-05] MEDS ORDERED: SODIUM CHLORIDE 0.9% 1000ML 1,000 ML IV STA (18:05)
[2017-02-05] MEDS ORDERED: METH10TA2 PO (18:07)
[2017-02-05] MEDS ORDERED: [UNRECOGNIZED DRUG - CODE] UT (18:07)
--- NOTE | 2017-02-05 18:21 | EMERGENCY ROOM VISIT NOTE ---
History Report prepared by Adria: Kerri Veloz Under the Supervision of: Dr. Brent Royal M.D. First contact with patient: 17:19 Chief Complaint: VOMITING Stated Complaint: NAUSEA, VOMITING History of Present Illness The patient is a 71 year old male who presents to the Emergency Room with complaints of worsening vomiting for the past couple of weeks. The patient has a past medical history of prostate and colon cancer that has metastasized to the liver. He is currently on hospice. He was brought to the ED via EMS for intractable vomiting. states that initially it was under control with antiemetics. Last night he was up vomiting all night. He has been unable to eat or keep down any of his pain medications. He is also experiencing LLQ abdominal pain, back pain, and left sided rib pain. He rates his pain as an 8/10 in severity. The patient has had diarrhea for the past day. He did not urinate at all today. He has been short of breath today even with walking to the bathroom. The patient denies chest pain, hematemesis, fevers, chills, melena, hematochezia , any sick contacts, and any recent travel. states that he has been somewhat confused today. Source of History: patient, family, spouse/significant other Onset: last night Position: abdomen Symptom Intensity: 8/10 Quality: other (vomiting) Timing: worsening Modifying Factors (Worsening): other (Hx of cancer) Modifying Factors (Relieving): anti-emetics Associated Symptoms: + SOB, + abdominal pain, + back pain, + diarrhea, + urinary symptoms, No chest pain, No fevers, No hematochezia, No melena Review of Systems See HPI for pertinent positives & negatives. A total of 10 systems reviewed and were otherwise negative. Past Medical & Surgical Medical Problems: (1) Abdominal pain (2) Altered mental status (3) Back pain (4) Hydronephrosis, left (5) Intractable vomiting with nausea (6) Left ureteral calculus (7) Melena (8) Prostate ca (9) Prostate cancer metastatic to intraabdominal lymph node Surgical Problems: (1) Hx of cholecystectomy (2) S/P colectomy Old medical records were reviewed. Nurse's notes were reviewed and I agree with. Family History FH: GI cancer Social History Smoking Status: Unknown if Ever Smoked Alcohol Use: none Drug Use: none Marital Status: Housing Status: lives with family Occupation Status: retired Current/Historical Medications Scheduled Allopurinol (Allopurinol), 100 MG PO BID Colesevelam Hcl (Welchol), 625 MG PO TID Methadone Hcl (Dolophine), 10 MG PO TID Scopolamine (Transderm-Scop), 3 MG TD Q72H Tamsulosin HCl (Tamsulosin HCl), 0.4 MG PO QPM Scheduled PRN Haloperidol (Haloperidol), 1 DOSE UT UD PRN for Nausea Hydromorphone Hcl (Dilaudid), 8 MG PO QID PRN for Pain Lorazepam (Ativan), 0.5 MG PO Q6H PRN for Anxiety Ondansetron Odt (Zofran Odt), 8 MG SL Q6H PRN for Nausea Promethazine HCl (Promethazine HCl), 25 MG PO Q6H PRN for Nausea Allergies Coded Allergies: No Known Allergies (Unverified , 01/05/17) Physical Exam Vital Signs Date Time Temp Pulse Resp B/P Pulse Ox O2 Delivery O2 Flow Rate FiO2 02/05/17 20:31 106 20 129/89 97 Nasal Cannula 2.0 02/05/17 19:08 111 16 150/87 95 Nasal Cannula 2.0 02/05/17 17:41 112 02/05/17 17:28 Nasal Cannula 2.0 02/05/17 17:22 36.7 111 150/98 94 Nasal Cannula 2.0 Physical Exam General: Well developed cachetic older male, eyes are open, in no acute distress , breathing comfortably on supplemental oxygen. Normal speech HEENT: Normal cephalic atraumatic. Pupils are equal round and reactive to light. Extraocular movements are intact. Oropharynx is pink and somewhat dry. No swelling of the mouth lips or tongue. Neck: Supple with a midline trachea. No meningeal signs or stiffness, no JVD or bruits. No Stridor. Chest: Clear to auscultation bilaterally. No wheezes or rhonchi. No increased work of breathing. Heart: regular rate and rhythm. Abdomen: Soft nontender, nondistended without rebound guarding or rigidity. Extremities: No cyanosis clubbing or edema. No calf tenderness or assymetry Spine/Back. Non tender to palpation. No CVA tenderness Skin: Good turgor without rashes. Neurologic exam: Cranial nerves two through 12 are intact. Motor and sensation are intact and symmetrical throughout. Medical Decision & Procedures Medications Administered Medications (Trade) Dose Ordered Sig/Scott Route Start Time Stop Time Status Last Admin Dose Admin Sodium Chloride 1,000 ml @ 999 mls/hr Q1H1M STAT IV 02/05/17 18:05 02/05/17 19:05 DC 02/05/17 18:29 999 MLS/HR Sodium Chloride (Nss 1000ml) 1,000 ml @ 150 mls/hr Q6H40M ONCE IV 02/05/17 18:05 02/06/17 00:44 02/05/17 19:27 150 MLS/HR Ondansetron HCl (Zofran Inj) 4 mg NOW STAT IV 02/05/17 18:05 02/05/17 18:06 DC 02/05/17 18:31 4 MG ED Course 1719: Past medical records reviewed. The patient was evaluated in room A12B, and a complete history and physical examination were performed. 1805: Zofran 4 mg IV, NSS 1000 ml @ 150 mls/hr IV, NSS 1000 ml @ 999 mls/hr IV 1830: I reassessed the patient. He is doing well and has gotten his IV. 1847: I reassessed the patient at this time. He looks better. I discussed the results and treatment plan with the patient's family. I answered all pertaining questions that they had. They expressed understanding and verbalized agreement. 1917: I spoke with Dr. Santana. We discussed the patients results and treatment plan. The patient will be evaluated by the [facility] for further management. Medical Decision Differential diagnoses includes dehydration, sepsis, electrolyte or metabolic abnormality. This patient comes in as described above. He was placed in room A 12. He is here for vomiting and inability keep his medications down. He has end-stage cancer that is metastatic and is on hospice and is comfort care. He brought him in today because he could not hold down his medications and hospice recommended he come here. IV access established was hydrated with 1 L IV normal saline bolus and given Zofran 4 mg IV. He was reassessed frequently. With these measures he looks better and was asking to drink a soda. Family and the hospice nurse and do want him admitted to the hospice service for pain management and nausea management. He will be admitted for these measures. Consults Time Called: 1899 Consulting Physician: Dr. Santana Returned Call: [address] Santana. We discussed the patients results and treatment plan. The patient will be evaluated by the [facility] for further management. Impression Primary Impression: Vomiting Additional Impressions: Abdominal pain Hospice care patient Scribe Attestation The scribe's documentation has been prepared under my direction and personally reviewed by me in its entirety. I confirm that the note above accurately reflects all work, treatment, procedures, and medical decision making performed by me. Departure Information Dispostion Being Evaluated By Hospitalist Referrals Jose Antonio Brock M.D. (PCP) Patient Instructions My [facility] Problem Qualifiers Primary Impression: Vomiting Vomiting type: unspecified Vomiting Intractability: non-intractable Nausea presence: with nausea Qualified Codes: R11.2 - Nausea with vomiting, unspecified Additional Impressions: Abdominal pain Abdominal location: generalized Qualified Codes: R10.84 - Generalized abdominal pain
--- NOTE | 2017-02-05 20:51 | History and Physical ---
History & Physical Date & Time of Service: Feb 05, 2017 at 20:13 Chief Complaint: Nausea, Vomiting Primary Care Physician: Jose Antonio Brock M.D. History of Present Illness Source: patient, family 71 y/o M with PMH of metastatic prostate and colon cancer currently on hospice presented to the ER with intractable vomiting, diarrhea and abdominal pain/back pain which started a few days ago. He has tried using Zofran but has not been able to keep anything down, including his home medications . c/o worsening SOB and pain even while trying to go to the bathroom. denies fevers/chills, denies any chest pain except for left sided rib pain. Past Medical/Surgical History Medical Problems: (1) Prostate ca Status: Chronic Surgical Problems: (1) S/P colectomy Status: Resolved Family History FH: GI cancer Social History Smoking Status: Unknown if Ever Smoked Drug Use: none Marital Status: Housing status: lives with significant other Occupational Status: retired Immunizations History of Influenza Vaccine: Yes Influenza Vaccine Date: Nov 12, 2013 History of Tetanus Vaccine?: utd Tetanus Immunization Date: Nov 12, 2013 History of Pneumococcal: Yes Pneumococcal Date: Nov 12, 2013 History of Hepatitis B Vaccine: No Multi-Drug Resistant Organisms History of MDRO: No Allergies Coded Allergies: No Known Allergies (Unverified , 01/05/17) Home Medications Scheduled Allopurinol (Allopurinol), 100 MG PO BID Colesevelam Hcl (Welchol), 625 MG PO TID Methadone Hcl (Dolophine), 10 MG PO TID Scopolamine (Transderm-Scop), 3 MG TD Q72H Tamsulosin HCl (Tamsulosin HCl), 0.4 MG PO QPM Scheduled PRN Haloperidol (Haloperidol), 1 DOSE UT UD PRN for Nausea Hydromorphone Hcl (Dilaudid), 8 MG PO QID PRN for Pain Lorazepam (Ativan), 0.5 MG PO Q6H PRN for Anxiety Ondansetron Odt (Zofran Odt), 8 MG SL Q6H PRN for Nausea Promethazine HCl (Promethazine HCl), 25 MG PO Q6H PRN for Nausea Review of Systems Constitutional: No chills, No fever Respiratory: + dyspnea on exertion, + shortness of breath Abdomen: + diarrhea, + nausea, + pain, + vomiting Musculoskeletal: + joint pain Endocrine: + fatigue Physical Exam Vital Signs Date Time Temp Pulse Resp B/P Pulse Ox O2 Delivery O2 Flow Rate FiO2 02/05/17 19:08 111 16 150/87 95 Nasal Cannula 2.0 02/05/17 17:41 112 02/05/17 17:28 Nasal Cannula 2.0 02/05/17 17:22 36.7 111 150/98 94 Nasal Cannula 2.0 General Appearance: + cachetic Head: normocephalic ENT: hearing grossly normal, TMs normal Neck: supple Respiratory/Chest: chest non-tender, lungs clear, normal breath sounds, no respiratory distress, no accessory muscle use Cardiovascular: regular rate, rhythm Abdomen/GI: soft, + tenderness Extremities/Musculoskelatal: no pedal edema Neurologic/Psych: + pertinent finding (drowsy but oriented ) Skin: normal color Impression Assessment and Plan 71 y/o M with PMH of metastatic prostate and colon cancer currently on hospice presented to the ER with intractable vomiting, diarrhea and abdominal pain/back pain which started a few days ago. He has tried using Zofran but has not been able to keep anything down, including his home medications . admitted to hospice Pain control - Continue fentanyl 100 g transdermal patch every 48 hours - Roxanol liquid 15 mg every hour when necessary -IV Dilaudid 1 mg every 2 hours for breakthrough pain for breakthrough pain Nausea and Vomiting: - Zofran 4 mg q4h PRN - scopolamine patch Dehydration: NSS with 20 mEq KCl at 150 mls/hr Palliative consult DNR Disposition: Hospice Level of Care Hospice Resuscitation Status DO NOT RESUSCITATE VTE Prophylaxis Given or contraindicated: Treatment not indicated (Hospice care) Assessment and Plan Attending Addendum: I have physically seen and examined this patient, have directed their medical care, have supervised the medical residents activities, and agree with the H&P as noted above, with the following changes: Assessment And Plan: Pain management--I think that a number of the patient's symptoms are related to narcotic withdrawal. He had previously been on fentanyl patch 150 g every 72 hours, and then had been changed to methadone 10 mg by mouth 3 times a day with Dilaudid 6 mg by mouth every 3 hours when necessary for breakthrough pain. He has become very dehydrated,and is unable to swallow these pills. He will be placed back on fentanyl patch but at 100 g every 48 hours, with Roxanol liquid 20 mg per mL at 1 mL every hour as needed and / or Dilaudid 1 mg IV every 2 hours when necessary. We'll have a PICC line placed, so that may also use Dilaudid IV or Zofran IV when he returns home. Since he has gotten so far down at this point, we will continue to hydrate him with IV fluids, but will not checking laboratories, and when he is improved enough to continue on hospice at home he'll be discharged. I think that the reason the fentanyl patch was not appearing to work, is that, it was only lasting 48 hours, as the generic of this patch oftentimes does, and he was going through withdrawal and/or inadequate pain control during the 48-72 hours interval of each patch.
[2017-02-05 21:10] VITALS: Ht 165.1 cm; Wt 54.9 kg
[2017-02-05 21:21] VITALS: O2SAT 97
[2017-02-05] MEDS ORDERED: FENTANYL 100 MCG/HR TDSY TD SCH (21:45)
[2017-02-05] MEDS ORDERED: HYDROmorphone INJ 1 MG/ML SYR IV PRN (21:45)
[2017-02-05] MEDS: SCOPOLAMINE 1.5 MG TDSY TD SCH (22:28)
[2017-02-05] MEDS: FENTANYL 100 MCG/HR TDSY TD SCH (22:28)
[2017-02-05] MEDS: NSS + 20MEQ KCL 1000ML 1,000 ML IV SCH (22:34)
[2017-02-05] MEDS: CHECK FENTANYL PATCH PLACEMENT SCH (23:49)
[2017-02-05] MEDS: CHECK SCOPOLAMINE PATCH PLACEMENT SCH (23:50)
[2017-02-06] MEDS: MoRPHine SULFATE 15 MG/0.75 ML UDP PO PRN ×3 (05:02→12:12)
[2017-02-06] MEDS: NSS + 20MEQ KCL 1000ML 1,000 ML IV SCH ×3 (05:02→18:51)
[2017-02-06 07:46] VITALS: BP 159/82; PULSE 99; TEMP 36.6; O2SAT 100
[2017-02-06] MEDS: ONDANSETRON INJ 2 MG/ML 2 ML VIAL IV PRN ×2 (08:58→12:44)
[2017-02-06] MEDS: CHECK SCOPOLAMINE PATCH PLACEMENT SCH ×2 (09:04→15:50)
[2017-02-06] MEDS: CHECK FENTANYL PATCH PLACEMENT SCH ×2 (09:08→15:49)
--- NOTE | 2017-02-06 10:57 | Palliative Care Consultation ---
Consultation Date of Consultation: Feb 06, 2017. Requesting Physician: Dr. Robbins Attending Physician: Dr. Robbins, Dr. Kumar Reason for Consultation: Hospice patient, symptom management History of Present Illness This 71 year old male patient presented to the ED yesterday with intractable pain and is admitted under hospice care. This patient is well-known to the palliative service as I have seen him on several previous admissions. He has metastatic prostate cancer and has been here at [facility] four times in the last four months, usually complaining of intractable pain, nausea, and vomiting. He was previously on Opdivo as a trial medication for the prostate CA, but unfortunately did not have any improvement. Decision was made to stop the Opdivo and return home with his eventually with hospice care. He returns now again with pain. I met with the patient in room 407. He is somewhat forgetful about the date and time, but was answering all questions appropriately and was able to give me some history. He was doing fairly well at home with hospice care until recently his fentanyl patch was discontinued, methadone started, because his pain was not under control. Per record, he was taking methadone 10mg TID, 8mg PO Dilaudid QID PRN-- patient could not recall how often he was taking this. His pain is currently a 7/10, had 15mg PO Roxanol (ordered Q1h PRN) given while I was in the room with him. His fentanyl patch has been restarted at 100mcg/hr and methadone not ordered. He also has Dilaudid 1mg IV Q2h PRN but has not used it. I discussed how things have been going at home. He is weak, has been losing weight, has fallen at home, and is requiring an increasing amount of assistance and care. He foresees needing to go to a SNF at this point, and I agreed. The patient's , Caprice, and son, Gomez, then came and I discussed this with them as well. Caprice is very tired and worn out, she does not feel comfortable with patient at home any more. Everyone is in agreement that hospice will need to be continued at SNF. Patient already has a POLST: DNR/DNI, comfort measures only, trial of abx if needed, trial of IVF if needed but no artificial feeding. Past Medical/Surgical History Medical History: Prostate CA with metastatic disease to bones and liver History of small bowel carcinoma s/p hemicolectomy GERD Neuropathy Upper GI bleed October 2016 Gout Surgical History: Hemicolectomy Social History Smoking Status: Never Smoker History of Alcohol Use: No Drug Use: none Marital Status: Housing Status: lives with significant other Occupation Status: retired Review of Systems Constitutional: + weakness, + weight loss, No chills, No fever Respiratory: + dyspnea on exertion, No cough, No dyspnea at rest Cardiac: No chest pain, No edema Abdomen: + diarrhea (on and off at home), + nausea, + pain, No vomiting Male : No problem reported Psychiatric: No anxiety Allergies Coded Allergies: No Known Allergies (Unverified , 01/05/17) Medications Current Inpatient Medications Medications (Trade) Dose Ordered Sig/Scott Route Start Time Stop Time Status Last Admin Dose Admin Morphine Sulfate (Roxanol Oral Soln) 15 mg Q1H PRN PO 02/05/17 21:45 02/19/17 21:44 02/06/17 09:19 15 MG Hydromorphone HCl (Dilaudid Inj) 1 mg Q2H PRN IV 02/05/17 21:45 02/19/17 21:44 Scopolamine (Transderm-Scop Patch) 1.5 mg Q72H TD 02/05/17 21:45 03/07/17 21:44 02/05/17 22:28 1.5 MG Miscellaneous (Remove Transderm-Scop Patch) 1 ea Q72H N/A 02/08/17 21:45 03/10/17 21:44 Miscellaneous Information 1 ea 1 ea QS N/A 02/06/17 00:00 03/08/17 00:00 02/06/17 09:04 1 EA Potassium Chloride/Sodium Chloride (Nss + 20meq KCl 1000ml) 1,000 ml @ 150 mls/hr Q6H40M IV 02/05/17 22:15 03/07/17 22:14 02/06/17 05:02 150 MLS/HR Ondansetron HCl (Zofran Inj) 4 mg Q4H PRN IV 02/05/17 21:45 03/07/17 21:44 02/06/17 08:58 4 MG Fentanyl (Duragesic Patch) 100 mcg Q48H TD 02/05/17 22:30 02/19/17 22:29 02/05/17 22:28 100 MCG Miscellaneous (Fentanyl Patch Remove & Waste) 1 ea Q48H N/A 02/07/17 22:30 03/09/17 22:29 Miscellaneous Information (Check Fentanyl Patch Placement) 1 ea QS N/A 02/06/17 00:00 03/08/17 00:00 02/06/17 09:08 1 EA Physical Exam Date Time Temp Pulse Resp B/P Pulse Ox O2 Delivery O2 Flow Rate FiO2 02/06/17 07:46 36.6 99 18 159/82 100 2.0 02/06/17 00:10 Nasal Cannula 2.0 02/05/17 21:21 108 16 132/80 97 02/05/17 21:20 108 16 132/80 97 Nasal Cannula 2.0 02/05/17 21:10 Nasal Cannula 02/05/17 20:31 106 20 129/89 97 Nasal Cannula 2.0 02/05/17 19:08 111 16 150/87 95 Nasal Cannula 2.0 02/05/17 17:41 112 02/05/17 17:28 Nasal Cannula 2.0 02/05/17 17:22 36.7 111 150/98 94 Nasal Cannula 2.0 General Appearance: no apparent distress, + cachetic, + thin ENT: hearing grossly normal Neck: no JVD Respiratory: no respiratory distress, no accessory muscle use, + decreased breath sounds Cardiovascular: regular rate, rhythm, + normal peripheral pulses Abdomen: normal bowel sounds, soft Neurologic/Psychiatric: alert, normal mood/affect, + disoriented Skin: + pallor Assessment & Plan Palliative Performance Scale: 30 % Problem list: Intractable pain, abdominal and back Nausea Weakness Metastatic prostate cancer, mets to bones and liver Goals of care (Z51.5) Palliative care plan: -Plan is to continue hospice care here until pain managed, then discharge to SNF to continue hospice care. Case management updated. -POLST form previously done, indicating [employer] (as above) Recommendations: -Fentanyl patch just restarted, will wait 24 to make any changes to that. If patient still experiencing pain tomorrow, would increase to 150mcg/hr Q72h. -Discontinue IV Dilaudid and order 4mg PO Q3h PRN -Continue Roxanol 15mg PO Q1h PRN -Change Zofran to 4mg ODT Q4h PRN Thank you kindly for this consult. I will follow as needed.
[2017-02-06] MEDS ORDERED: LORAZEPAM 0.5 MG TAB PO PRN (11:15)
[2017-02-06] MEDS ORDERED: HYDROmorphone HCL 0.5MG/ML 50 ML CASSETTE IV PRN ×2 (13:15→15:15)
[2017-02-06] MEDS ORDERED: HYDROmorphone INJ 1 MG/ML SYR IV PRN (13:45)
--- NOTE | 2017-02-06 14:43 | Family Medicine Progress Note ---
Progress Note Date of Service Feb 06, 2017. Subjective Pt evaluation today including: conversation w/ patient, physical exam, chart review, lab review, review of studies Pain: Patient denies any pain this morning once being started on new regimen Voiding: no voiding problems, no incontinence Constitutional: No chills, No fever, No sweats Respiratory: No cough, No shortness of breath, No sputum, No wheezing Cardiovascular: No chest pain, No palpitations Abdomen: No diarrhea, No nausea, No pain, No vomiting Male : No dysuria Medications Current Inpatient Medications Medications (Trade) Dose Ordered Sig/Scott Route Start Time Stop Time Status Last Admin Dose Admin Morphine Sulfate (Roxanol Oral Soln) 15 mg Q1H PRN PO 02/05/17 21:45 02/19/17 21:44 02/06/17 12:12 15 MG Scopolamine (Transderm-Scop Patch) 1.5 mg Q72H TD 02/05/17 21:45 03/07/17 21:44 02/05/17 22:28 1.5 MG Miscellaneous (Remove Transderm-Scop Patch) 1 ea Q72H N/A 02/08/17 21:45 03/10/17 21:44 Miscellaneous Information 1 ea 1 ea QS N/A 02/06/17 00:00 03/08/17 00:00 02/06/17 09:04 1 EA Potassium Chloride/Sodium Chloride (Nss + 20meq KCl 1000ml) 1,000 ml @ 150 mls/hr Q6H40M IV 02/05/17 22:15 03/07/17 22:14 02/06/17 12:11 150 MLS/HR Ondansetron HCl (Zofran Inj) 4 mg Q4H PRN IV 02/05/17 21:45 03/07/17 21:44 02/06/17 12:44 4 MG Fentanyl (Duragesic Patch) 100 mcg Q48H TD 02/05/17 22:30 02/19/17 22:29 02/05/17 22:28 100 MCG Miscellaneous (Fentanyl Patch Remove & Waste) 1 ea Q48H N/A 02/07/17 22:30 03/09/17 22:29 Miscellaneous Information (Check Fentanyl Patch Placement) 1 ea QS N/A 02/06/17 00:00 03/08/17 00:00 02/06/17 09:08 1 EA Lorazepam 0.5 mg 0.5 mg Q6H PRN PO 02/06/17 11:15 03/08/17 11:14 02/06/17 11:16 0.5 MG Promethazine HCl/ Sodium Chloride (Phenergan Inj/ Nss 50ml) 50.5 ml @ 204 mls/hr Q6H PRN IV 02/06/17 13:15 03/08/17 13:14 Hydromorphone HCl (Dilaudid Inj) 1 mg Q1H PRN IV 02/06/17 13:45 02/20/17 13:44 Objective Vital Signs Date Time Temp Pulse Resp B/P Pulse Ox O2 Delivery O2 Flow Rate FiO2 02/06/17 09:00 Nasal Cannula 2.0 02/06/17 07:46 36.6 99 18 159/82 100 2.0 02/06/17 00:10 Nasal Cannula 2.0 02/05/17 21:21 108 16 132/80 97 02/05/17 21:20 108 16 132/80 97 Nasal Cannula 2.0 02/05/17 21:10 Nasal Cannula 02/05/17 20:31 106 20 129/89 97 Nasal Cannula 2.0 02/05/17 19:08 111 16 150/87 95 Nasal Cannula 2.0 02/05/17 17:41 112 02/05/17 17:28 Nasal Cannula 2.0 02/05/17 17:22 36.7 111 150/98 94 Nasal Cannula 2.0 Physical Exam General Appearance: + cachetic, + thin Eyes: sclerae normal Neck: supple, no carotid bruits, trachea midline Respiratory/Chest: chest non-tender, lungs clear, normal breath sounds, no respiratory distress, no accessory muscle use Cardiovascular: regular rate, rhythm, no edema, no gallop, no murmur Abdomen: normal bowel sounds, non tender, soft Neurologic/Psychiatric: alert, + pertinent finding (drowsy) Assessment and Plan Patient is a 71 year old male with Metastatic prostate and colon cancer currently receiving home hospice care. The patient appears to have improved since admission, but after receiving the liquid dose of Roxanol this morning he was having nausea and dry heaving so he was given Zofran and Phenergan and it was decided to place the patient on a Dilaudid 1mg/hr LOAN REPRESENTATIVE pump. His at this time also has felt it overwhelming to continue home hospice care so the patient will most likely be placed in a SNF. 1) Pain control - Fentanyl patch 100g q48h - Roxanol liquid stopped - Morphine LOAN REPRESENTATIVE 1mg/hr - Dilaudid 1mg IV q2h PRN 2) Nausea - Zofran 4mg IV q4h PRN - Scopolamine patch 1mg q72h 3) Anxiety - Ativan 0.5mg q6h PRN 4) Dehydration - IV NS 5) Disposition - Discuss with case management - POLST form already completed - SNF placement that will accept patients with LOAN REPRESENTATIVE pump 6) Code Status - DNR Reviewed: Pt Seen/Exam by Me History Resident Physician Supervision Note: I interviewed and examined the patient. Discussed with Dr. Mcdowell and agree with findings and plan as documented in the note. Any exceptions or clarifications are listed here: \ Patient seen with family at bedside. After receiving Roxanol today, he had dry heaving and nausea. He hasn't tolerated anything by mouth much at all in weeks. and patient prefer IV only medications at this point for comfort. We'll give a trial of Dilaudid LOAN REPRESENTATIVE and if this helps him stay comfortable with the pain in his ribs and back, and he can use IV Zofran for his persistent nausea and vomiting, then we can find placement for him at a nursing facility with hospice. Vitals reviewed Cachectic, weak, answers some questions but falls asleep at times Mild tachycardia regular rhythm Clear to auscultation bilaterally unlabored breathing Abdomen positive bowel sounds soft nontender nondistended Extremities 1+ pitting edema Intractable nausea vomiting and metastatic bony pain from prostate cancer- Dilaudid LOAN REPRESENTATIVE, IV Zofran, continue fentanyl patch for basal pain control, and work on placement Documented By: Hafsa Kumar
[2017-02-06] MEDS ORDERED: NALOXONE HCL 0.4 MG/1 ML VIAL/CARP IV PRN (15:15)
[2017-02-06] MEDS: SODIUM CHLORIDE 0.9% 1000ML 1,000 ML IV SCH (15:49)
[2017-02-07] MEDS: CHECK FENTANYL PATCH PLACEMENT SCH ×4 (00:06→14:32)
[2017-02-07] MEDS: CHECK SCOPOLAMINE PATCH PLACEMENT SCH ×3 (00:06→14:32)
[2017-02-07] MEDS: ONDANSETRON INJ 2 MG/ML 2 ML VIAL IV PRN ×3 (00:07→15:27)
[2017-02-07] MEDS: NSS + 20MEQ KCL 1000ML 1,000 ML IV SCH ×3 (00:07→14:27)
[2017-02-07] MEDS: PROMETHAZINE HCL INJ 12.5 MG in SODIUM CHLORIDE 0.9% 50ML 50 ML IV PRN ×2 (02:05→19:56)
[2017-02-07 07:28] VITALS: BP 133/75; PULSE 89; TEMP 36.4; O2SAT 99
--- NOTE | 2017-02-07 10:46 | DIAGNOSTIC IMAGING REPORT ---
SINGLE VIEW PELVIS; 2 VIEWS RIGHT HIP; 2 VIEWS LEFT HIP CLINICAL HISTORY: Fall. Bilateral hip pain. FINDINGS: An AP view of the pelvis with AP and frog-leg views of the right hip as well as AP and frog-leg views of the left hip are correlated with pelvic CT dated 01/05/2017. The skeletal structures are osteopenic. No fracture is identified. Mild arthritic change is present in both hips. The sacroiliac joints appear preserved. The overlying soft tissues are normal in appearance. Lumbosacral spondylosis is partially imaged. Osteoblastic lesions are present within the left sacrum and the bilateral duran. Brachytherapy seeds are noted in the prostate gland. Surgical clips an phlebolith are present in the pelvis. IMPRESSION: 1. Osteopenia with no radiographic evidence of fracture in the hips or bony pelvis. 2. Mild degenerative change as above. 3. Osteoblastic metastatic lesions are identified in the bony pelvis, and were better characterized on the 01/05/[address] Electronically signed by: Los Hearn M.D. 02/07/2017 10:44 AM Dictated Date/Time: 02/07/2017 10:42 AM
[2017-02-07] MEDS: MoRPHine SULFATE 15 MG/0.75 ML UDP PO PRN (11:44)
[2017-02-07] MEDS ORDERED: NURSING VERBAL MED ORDER ONE ×2 (13:00→16:30)
--- NOTE | 2017-02-07 13:06 | Palliative Care Progress Note ---
Palliative Care Progress Note Date of Service Feb 07, 2017. Subjective Pt evaluation today including: conversation w/ patient, conversation w/ family , physical exam, conversation w/ automotive internet sales consultant Pain: 5/10 PO Intake: minimal intake of fluids Voiding: mclean catheter in place -Patient states pain is better today but still 5/10. Pain worsens intermittently especially when retching, still experiencing intermittent nausea after trying to take in PO. Encouraged patient to only take in what he wants or can tolerate. -Had only one ORTHODONTIC TECHNICIAN dose of 1mg Dilaudid since 944 this morning. -Patient is disoriented/confused, but spontaneously awake. Does not answer all questions appropriately. - at bedside and denies any questions/concerns. -Per family and nursing, patient had a fall this morning, no injury reported. Review of Systems Constitutional: + weakness Respiratory: No shortness of breath Cardiac: No chest pain Abdomen: + nausea, + pain full ROS not obtained due to confusion Objective Vital Signs Date Time Temp Pulse Resp B/P Pulse Ox O2 Delivery O2 Flow Rate FiO2 02/07/17 07:28 36.4 89 18 133/75 99 2.0 02/07/17 00:00 Nasal Cannula 2.0 02/06/17 16:00 Nasal Cannula 2.0 Physical Exam General Appearance: no apparent distress, + cachetic, + thin ENT: hearing grossly normal Neck: no JVD Respiratory/Chest: no respiratory distress, no accessory muscle use Cardiovascular: regular rate, rhythm, + normal peripheral pulses Abdomen: normal bowel sounds, + tenderness, + hepatomegaly Neurologic/Psychiatric: alert, + disoriented Assessment and Plan Problem list: Intractable pain, abdominal and back Nausea Weakness Metastatic prostate cancer, mets to bones and liver Goals of care (Z51.5) Palliative care plan: -Increase fentanyl patch to 150mcg/hr Q48h -Schedule promethazine 12.5mg IV ACHS -Keep Dilaudid ORTHODONTIC TECHNICIAN 1mg Q1h, no basal rate -Waiting for SNF placement to continue hospice care I will continue to follow as needed. Addendum: Received call at 1610 from primary RN that patient's pain is increasing. I recommended adding a basal rate to the Dilaudid ORTHODONTIC TECHNICIAN-- she will speak to Dr. Kumar about this. Palliative Performance Scale: 40 % Continued [facility] stay due to: multiple IV medications needed, home environment unsafe for pt Discharge planning: intermediate facility (with hospice)
[2017-02-07] MEDS ORDERED: FENTANYL 50 MCG/HR TDSY TD ONE (13:30)
[2017-02-07] MEDS ORDERED: HYDROmorphone HCL 0.5MG/ML 50 ML CASSETTE IV PRN ×3 (14:00→17:30)
[2017-02-07] MEDS: SODIUM CHLORIDE 0.9% 1000ML 1,000 ML IV SCH (14:27)
[2017-02-07] MEDS ORDERED: PROMETHAZINE HCL INJ 12.5 MG in SODIUM CHLORIDE 0.9% 50ML 50 ML IV SCH (16:30)
[2017-02-07] MEDS: LORAZEPAM 2 MG/ML 1 ML VIAL IV PRN (17:26)
--- NOTE | 2017-02-07 17:50 | Family Medicine Progress Note ---
Progress Note Date of Service Feb 07, 2017. Subjective Pt evaluation today including: conversation w/ patient, physical exam, chart review, lab review, review of studies Pain: No acute complaints of pain this morning Voiding: mclean catheter in place Patient is resting comfortably in bed this morning with no acute complaints of pain. Dr. Kumar was called to bedside this morning after the patient was confused and tried to get out bed to go to the bathroom, tripping over his IV and falling on his side. He had no acute complaints after that but a Hip X-Ray was ordered that showed no acute abnormalities. The patient does not seem to be using the AUTOBODY TECHNICIAN pump as often so we have increased the basal rate. Medications Current Inpatient Medications Medications (Trade) Dose Ordered Sig/Scott Route Start Time Stop Time Status Last Admin Dose Admin Scopolamine (Transderm-Scop Patch) 1.5 mg Q72H TD 02/05/17 21:45 03/07/17 21:44 02/05/17 22:28 1.5 MG Miscellaneous (Remove Transderm-Scop Patch) 1 ea Q72H N/A 02/08/17 21:45 03/10/17 21:44 Miscellaneous Information (Check Scopolamine Patch Placement) 1 ea QS N/A 02/06/17 00:00 03/08/17 00:00 02/07/17 14:32 1 EA Ondansetron HCl (Zofran Inj) 4 mg Q4H PRN IV 02/05/17 21:45 03/07/17 21:44 02/07/17 15:27 4 MG Fentanyl (Duragesic Patch) 100 mcg Q48H TD 02/05/17 22:30 02/19/17 22:29 02/05/17 22:28 100 MCG Miscellaneous (Fentanyl Patch Remove & Waste) 1 ea Q48H N/A 02/07/17 22:30 03/09/17 22:29 Miscellaneous Information (Check Fentanyl Patch Placement) 1 ea QS N/A 02/06/17 00:00 03/08/17 00:00 02/07/17 14:32 1 EA Lorazepam 0.5 mg 0.5 mg Q6H PRN PO 02/06/17 11:15 03/08/17 11:14 02/06/17 11:16 0.5 MG Promethazine HCl/ Sodium Chloride (Phenergan Inj/ Nss 50ml) 50.5 ml @ 204 mls/hr Q6H PRN IV 02/06/17 13:15 03/08/17 13:14 02/07/17 02:05 204 MLS/HR Naloxone HCl 0.4 mg 0.4 mg DAILY PRN IV 02/06/17 15:15 03/08/17 15:14 Sodium Chloride (Nss 1000ml) 1,000 ml @ 15 mls/hr Q24H IV 02/06/17 15:15 03/08/17 15:14 Fentanyl (Duragesic Patch) 50 mcg Q48H TD 02/09/17 22:30 02/23/17 22:29 Miscellaneous (Fentanyl Patch Remove & Waste) 1 ea Q48H N/A 02/09/17 22:29 03/11/17 22:28 Miscellaneous Information 1 ea 1 ea QS N/A 02/07/17 16:00 03/09/17 15:59 02/07/17 14:32 1 EA Promethazine HCl/ Sodium Chloride (Phenergan Inj/ Nss 50ml) 50.5 ml @ 202 mls/hr Q6H IV 02/07/17 22:00 03/09/17 21:59 Lorazepam (Ativan Inj) 0.5 mg Q6HWA PRN IV 02/07/17 16:30 03/09/17 16:29 02/07/17 17:26 0.5 MG Hydromorphone HCl (Dilaudid Gardening Instructor) 25 mg UD PRN IV 02/07/17 17:30 02/21/17 17:29 Objective Vital Signs Date Time Temp Pulse Resp B/P Pulse Ox O2 Delivery O2 Flow Rate FiO2 02/07/17 16:42 Room Air 02/07/17 11:00 Room Air 02/07/17 07:28 36.4 89 18 133/75 99 2.0 02/07/17 00:00 Nasal Cannula 2.0 Physical Exam General Appearance: WD/WN, no apparent distress, + cachetic Neck: supple, no adenopathy, no carotid bruits Respiratory/Chest: chest non-tender, lungs clear, normal breath sounds Cardiovascular: regular rate, rhythm, no edema, no gallop, no murmur Abdomen: normal bowel sounds, non tender, soft Extremities: no calf tenderness Neurologic/Psychiatric: alert, + disoriented Skin: normal color, warm/dry Assessment and Plan Patient is a 71 year old male with Metastatic prostate and colon cancer currently receiving home hospice care. 1) Pain control for metastatic cancer - Increase in both Fentanyl patch and Dilaudid AUTOBODY TECHNICIAN today due to worsening pain and inability to use AUTOBODY TECHNICIAN due to confusion - Fentanyl patch increased to 150g q48h - Dilaudid AUTOBODY TECHNICIAN 0.5mg Basal rate + 0.25mg q15 minutes 2) Nausea - Continues to have nausea so antiemetics have been converted to IV to improve PO tolerance - Zofran 4mg IV q4h PRN - Scopolamine patch 1mg q72h - Phenergan 12.5mg IV q6h 3) Anxiety - Ativan 0.5mg q6h PRN converted from PO to IV 4) Bilateral Hip Pain s/p Fall - Hip/Pelvis X-Ray: No acute evidence of fractures, Mets previously visualized on CT 5) Disposition - Hospice care - POLST form already completed [facility] but no beds available until next week 6) Code Status - DNR History Resident Physician Supervision Note: I interviewed and examined the patient. Discussed with Dr. Mcdowell and agree with findings and plan as documented in the note. Any exceptions or clarifications are listed here: Patient seen this morning right after nurse's aide found him sitting on the ground after a fall. It appears he was trying to get to the bathroom and tripped possibly on his IV tubing, causing his fall and ripping out his IV. He was pointing to having some pain in his proximal thighs bilaterally but x-rays were negative for fracture and he was able to bear weight using his walker as usual. He is confused. Vitals reviewed Cachectic, weak, answers some questions but is vague in his answers Mild tachycardia regular rhythm Clear to auscultation bilaterally unlabored breathing Abdomen positive bowel sounds soft nontender nondistended Extremities 1+ pitting edema, full range of motion of hips knees and ankles as well as shoulders elbows and wrists without tenderness to palpation Intractable nausea vomiting and metastatic bony pain from prostate cancer-does not seem to be much improved today-Dilaudid AUTOBODY TECHNICIAN and add basal rate, IV Zofran and scheduled IV Phenergan, continue fentanyl patch at increased dose of 150 for basal pain control, and work on placement. If continues to require Dilaudid AUTOBODY TECHNICIAN, will need PICC line before placement Fall-no acute injuries, x-rays of the pelvis and hips are negative for fracture- fall precautions Documented By: Hafsa Kumar
[2017-02-07] MEDS: PROMETHAZINE HCL INJ 12.5 MG in SODIUM CHLORIDE 0.9% 50ML 50 ML IV SCH (22:16)
[2017-02-07] MEDS: FENTANYL 100 MCG/HR TDSY TD SCH (22:17)
[2017-02-07] MEDS: FENTANYL PATCH REMOVE & WASTE SCH ×2 (22:19→22:21)
[2017-02-07] MEDS ORDERED: FENTANYL PATCH REMOVE & WASTE SCH (22:30)
[2017-02-08] MEDS: CHECK FENTANYL PATCH PLACEMENT SCH ×5 (01:01→16:12)
[2017-02-08] MEDS: CHECK SCOPOLAMINE PATCH PLACEMENT SCH ×3 (01:02→16:12)
[2017-02-08] MEDS: ONDANSETRON INJ 2 MG/ML 2 ML VIAL IV PRN ×4 (02:40→14:17)
[2017-02-08] MEDS: PROMETHAZINE HCL INJ 12.5 MG in SODIUM CHLORIDE 0.9% 50ML 50 ML IV SCH ×4 (04:05→21:19)
[2017-02-08] MEDS ORDERED: FENTANYL 50 MCG/HR TDSY TD SCH (07:30)
[2017-02-08 08:01] VITALS: BP 138/77; PULSE 91; TEMP 36.3; O2SAT 95
[2017-02-08] MEDS ORDERED: NURSING VERBAL MED ORDER ONE ×6 (10:00→21:45)
[2017-02-08] MEDS: HYDROmorphone/NSS 100MG/100ML 100 ML IV PRN (10:42)
--- NOTE | 2017-02-08 11:42 | Palliative Care Progress Note ---
Palliative Care Progress Note Date of Service Feb 08, 2017. Subjective Pt evaluation today including: conversation w/ patient, conversation w/ family (, Caprice), conversation w/ [employer] consultant (Dr. Kumar, Dr. Mcdowell) Pain: 4/10 voiced to me; 15/10 voiced to about 5 minutes later PO Intake: minimal liquids Voiding: mclean catheter in place This AM, before I saw patient, the hospice agency nurse, Phoebe, came and voiced some concerns to me about patient's symptom management. She was asking why his methadone was discontinued and stated that her medical staff director, Dr. Root, stated that a patient should not be on fentanyl and promethazine together. I stated that the patient's methadone was discontinued on admission, most likely because the patient and family both voiced that the patient could not tolerate anything by mouth without retching and vomiting. I do know some side effects of promethazine and fentanyl such as sedation, SEISMOGRAPH OPERATOR HELPER depression, dizziness, and a rare but serious side effect of fatal dysrhythmia. I called Dr. Kumar and spoke with Chelsey, pharmacist, about this-- per both of them, it is okay to continue this regimen as patient has not had any notable side effects. Patient is confused, but has been since admission. He is still spontaneously awake and not sedated. Other concern from Phoebe were the patient's nausea/retching. I went to see the patient and sat with him for at least 10 minutes. His lips were still red from Jello, he was sipping on water while I was in room. I personally did not witness any retching, gagging, or vomiting. the patient was resting in bed, talking with me (although was not making much sense), and told me that his pain was a 4/10 at this time. Stated, "Don't you think it's funny to give a patient a meal when he's nauseated." I explained to patient that he absolutely does not need to force himself to eat anything if he is nauseated and does not want anything-- he verbalized understanding. Patient is more confused today, could not directly answer some questions and was taking quite a while to form his thoughts and sentences. I left the room and went back about five minutes later as Caprice, patient's , told me she was in the room. When I entered room, patient was holding abdomen , coughing into the pink basin, and moaning. No vomiting. told me that patient told her that his pain was 15/10. Caprice stated that the patient is confused and doesn't seem to be making sense. I discussed with her that at this point, as I talked with the hospice nurse and Dr. Kumar about, that we would discontinue the CONCERT PROMOTER and start a continuous Dilaudid infusion. Patient's agreed, patient is really not able to push the CONCERT PROMOTER button himself and only had two CONCERT PROMOTER doses overnight. Nursing staff did state that patient had a fairly good night, did get some sleep and did not verbalize nausea or severe pain. Patient will continue to be here under GIP. Received a call from patient's primary RN at 1107 that patient's two sons, daughter, [id number], grandson, and granddaughter were here at this time and they are all crying/upset. Daughter asked, "What does end of life care mean? " I went to the floor and met with grandchildren, daughter and [id number]. We discussed end of life are. Daughter said, "I didn't know that once this medicine started that that would be it." I explained that the dilaudid infusion is strictly for his comfort and we try to find a balance of symptom management and as little sedation as possible, but the pain medicine would certainly make the patient more sedate as it is increased according to his pain. The family all verbalized understanding and were appreciative of the care the patient has been receiving. I asked several times if there were any further concerns or if there were issues that were not being met by our staff and they declined. Review of Systems Respiratory: No shortness of breath Abdomen: + nausea, + pain full ROS could not be obtained as patient is confused Objective Vital Signs Date Time Temp Pulse Resp B/P Pulse Ox O2 Delivery O2 Flow Rate FiO2 02/08/17 08:01 36.3 91 18 138/77 95 Room Air 02/08/17 00:00 Room Air 02/07/17 20:00 Room Air 02/07/17 16:42 Room Air 02/07/17 11:00 Room Air Physical Exam General Appearance: no apparent distress, + cachetic, + thin Neck: no JVD Respiratory/Chest: no respiratory distress, no accessory muscle use Cardiovascular: regular rate, rhythm, + normal peripheral pulses Abdomen: normal bowel sounds, + tenderness (slightly tender), + hepatomegaly Neurologic/Psychiatric: alert, + disoriented Assessment and Plan Problem list: Intractable pain, abdominal and back Nausea Weakness Metastatic prostate cancer, mets to bones and liver Goals of care (Z51.5) Palliative care plan: discussed with patient, patient's Caprice, entire family who were present, Dr. Kumar, and Dr. Mcdowell. -Continue fentanyl patch 150mcg/hr Q48h -Scheduled promethazine 12.5mg IV ACHS -DC Dilaudid CONCERT PROMOTER -Stat continuous Dilaudid infusion at 1mg/hr, titrate by 0.5mg/hr Q30min PRN pain or SOB -Continue lorazepam for nausea or anxiety -Patient will remain in hospital as GIP hospice for now. I will continue to follow as needed. Palliative Performance Scale: 20 % Continued [facility] stay due to: multiple IV medications needed, home environment unsafe for pt Discharge planning: [facility] facility (with hospice)
[2017-02-08] MEDS ORDERED: ONDANSETRON INJ 2 MG/ML 2 ML VIAL IV ONE (14:30)
--- NOTE | 2017-02-08 19:21 | Family Medicine Progress Note ---
Progress Note Date of Service Feb 08, 2017. Subjective Pt evaluation today including: conversation w/ patient, physical exam, chart review, lab review, review of studies Pain: 5/10 pain this morning Voiding: mclean catheter in place Patient is resting comfortably in bed this morning and is still complaining of moderate pain. Although he is slightly confused, he was oriented to self and recognized me. He denies any nausea at the time of examination. He was seen earlier by Carlota Schmidt and reported a 4/10 pain but after leaving the room and returning 5 minutes later while his was present he was dry heaving and complaining of 15/10 pain. There is a large confusion component it appears but he is undoubtably experiencing significant pain from his unfortunate situation. Constitutional: No chills, No fever Respiratory: No cough, No shortness of breath, No wheezing Cardiovascular: No chest pain, No edema Abdomen: No nausea, No vomiting Musculoskeletal: No joint pain Medications Current Inpatient Medications Medications (Trade) Dose Ordered Sig/Scott Route Start Time Stop Time Status Last Admin Dose Admin Scopolamine (Transderm-Scop Patch) 1.5 mg Q72H TD 02/05/17 21:45 03/07/17 21:44 02/05/17 22:28 1.5 MG Miscellaneous (Remove Transderm-Scop Patch) 1 ea Q72H N/A 02/08/17 21:45 03/10/17 21:44 Miscellaneous Information (Check Scopolamine Patch Placement) 1 ea QS N/A 02/06/17 00:00 03/08/17 00:00 02/08/17 07:51 1 EA Ondansetron HCl (Zofran Inj) 4 mg Q4H PRN IV 02/05/17 21:45 03/07/17 21:44 02/08/17 07:51 4 MG Fentanyl (Duragesic Patch) 100 mcg Q48H TD 02/05/17 22:30 02/09/17 22:29 02/07/17 22:17 100 MCG Miscellaneous Information (Check Fentanyl Patch Placement) 1 ea QS N/A 02/06/17 00:00 03/08/17 00:00 02/08/17 07:50 1 EA Lorazepam (Ativan Tab) 0.5 mg Q6H PRN PO 02/06/17 11:15 03/08/17 11:14 02/06/17 11:16 0.5 MG Miscellaneous Information 1 ea 1 ea QS N/A 02/07/17 16:00 03/09/17 15:59 02/08/17 07:50 1 EA Promethazine HCl/ Sodium Chloride (Phenergan Inj/ Nss 50ml) 50.5 ml @ 202 mls/hr Q6H IV 02/07/17 22:00 03/09/17 21:59 02/08/17 09:38 202 MLS/HR Lorazepam (Ativan Inj) 0.5 mg Q6HWA PRN IV 02/07/17 16:30 03/09/17 16:29 02/07/17 17:26 0.5 MG Miscellaneous (Fentanyl Patch Remove & Waste) 1 ea Q48H N/A 02/07/17 22:30 03/09/17 22:29 02/07/17 22:19 1 EA Miscellaneous (Fentanyl Patch Remove & Waste) 1 ea Q48H N/A 02/07/17 22:30 03/09/17 22:29 02/07/17 22:21 1 EA Fentanyl 50 mcg 50 mcg 0730 TD 02/08/17 07:30 02/09/17 22:29 02/08/17 07:50 50 MCG Hydromorphone HCl (Dilaudid/Nss 100MG/100ML) 100 ml @ 1 mls/hr Q24H PRN IV 02/08/17 10:15 02/22/17 10:14 02/08/17 10:42 1 MLS/HR Fentanyl (Duragesic Patch) 150 mcg Q48H TD 02/09/17 22:30 02/23/17 22:29 Objective Vital Signs Date Time Temp Pulse Resp B/P Pulse Ox O2 Delivery O2 Flow Rate FiO2 02/08/17 11:50 Room Air 02/08/17 08:01 36.3 91 18 138/77 95 Room Air 02/08/17 00:00 Room Air 02/07/17 20:00 Room Air 02/07/17 16:42 Room Air Physical Exam General Appearance: no apparent distress, + cachetic Eyes: normal inspection, sclerae normal Neck: no carotid bruits, trachea midline Respiratory/Chest: chest non-tender, lungs clear Cardiovascular: regular rate, rhythm, no gallop, no murmur Abdomen: normal bowel sounds, non tender, soft Extremities: no calf tenderness Neurologic/Psychiatric: alert Assessment and Plan Patient is a 71 year old male with Metastatic prostate and colon cancer currently receiving home hospice care. 1) Pain control for metastatic cancer - Due to continued difficulties with the GAS PLANT WORKER pump we changed his Dilaudid to continuous dosing - Fentanyl patch 150g q48h - Dilaudid 1mg/hr IV continuous + additional 0.5 mg /hr if pain not adequately controlled 2) Nausea - Zofran 4mg IV q4h PRN - Scopolamine patch 1mg q72h - Phenergan 12.5mg IV q6h 3) Anxiety - Ativan 0.5mg q6h IV PRN 4) Bilateral Hip Pain s/p Fall - Hip/Pelvis X-Ray: No acute evidence of fractures 5) Disposition - Hospice care - POLST form already completed - [facility] will accept patient with PICC but no beds available until next week 6) Code Status - DNR Reviewed: Pt Seen/Exam by Me History Resident Physician Supervision Note: I interviewed and examined the patient. Discussed with Dr. Mcdowell and agree with findings and plan as documented in the note. Any exceptions or clarifications are listed here: Patient complaining of left lower quadrant abdominal pain and significant nausea. She tried to eat a meal today and this made his nausea much worse. He is passing some gas. He and his do not want any x-ray to check for obstruction, he says he would not want an NG tube Vitals reviewed Cachectic, weak, awake and alert but drowsy Mild tachycardia regular rhythm Clear to auscultation bilaterally unlabored breathing Abdomen positive bowel sounds soft, tenderness palpation left lower quadrant without guarding or rebound Extremities 1+ pitting edema, full range of motion of hips knees and ankles as well as shoulders elbows and wrists without tenderness to palpation Intractable nausea vomiting and metastatic bony pain from prostate cancer-does not seem to be much improved today-switched to continuous infusion of IV Dilaudid and increase as needed for comfort, continue IV Zofran and scheduled IV Phenergan, continue fentanyl patch at increased dose of 150 for basal pain control, and work on placement. Will likely need PICC line before placement versus he may end up passing away here Fall on 02/08-no acute injuries, x-rays of the pelvis and hips are negative for fracture-fall precautions Documented By: Hafsa Kumar
[2017-02-08] MEDS ORDERED: LORAZEPAM INJ 0.5 MG in SYRINGE 0.75 ML IV PRN (20:00)
[2017-02-08] MEDS: SCOPOLAMINE 1.5 MG TDSY TD SCH (21:19)
[2017-02-09] MEDS: CHECK FENTANYL PATCH PLACEMENT SCH ×6 (00:38→15:46)
[2017-02-09] MEDS: CHECK SCOPOLAMINE PATCH PLACEMENT SCH ×3 (00:40→15:46)
[2017-02-09] MEDS: PROMETHAZINE HCL INJ 12.5 MG in SODIUM CHLORIDE 0.9% 50ML 50 ML IV SCH ×4 (04:17→21:24)
[2017-02-09] MEDS: LORAZEPAM 2 MG/ML 1 ML VIAL IV PRN ×3 (04:20→15:46)
[2017-02-09] MEDS ORDERED: NURSING DECISION MEDICATION ORDER SCH ×2 (04:30→12:45)
[2017-02-09] MEDS ORDERED: LORAZEPAM 2 MG/ML 1 ML VIAL IV PRN (08:00)
[2017-02-09 08:03] VITALS: BP 130/72; PULSE 94; TEMP 36.7; O2SAT 91
[2017-02-09] MEDS ORDERED: LORAZEPAM INJ 2 MG in SYRINGE 1 ML IV PRN (08:30)
--- NOTE | 2017-02-09 08:36 | Palliative Care Progress Note ---
Palliative Care Progress Note Date of Service Feb 09, 2017. Subjective Pt evaluation today including: conversation w/ family Pain: patient unable to answer PO Intake: none, mouth care only Voiding: mclean catheter in place -Patient is lethargic but still opening eyes and moaning. Dilaudid infusing at 4.5mg/hr. Ativan dose increased to 2mg Q2h. -Family at bedside and deny any questions/concerns at this time. Support given. -Family requested for me to not do a physical exam. Review of Systems unable to obtain Objective Vital Signs Date Time Temp Pulse Resp B/P Pulse Ox O2 Delivery O2 Flow Rate FiO2 02/09/17 08:03 36.7 94 22 130/72 91 Room Air 02/09/17 00:00 Room Air 02/08/17 16:00 Room Air 02/08/17 11:50 Room Air Physical Exam General Appearance: no apparent distress Respiratory/Chest: no respiratory distress, no accessory muscle use, + pertinent finding (no secretions heard) Neurologic/Psychiatric: + pertinent finding (opening eyes, a few moans) Assessment and Plan Problem list: Intractable pain, abdominal and back Nausea Weakness Metastatic prostate cancer, mets to bones and liver Goals of care (Z51.5) Palliative care plan: -Continue current medications for now -If pain or agitation is not relieved, may increase Ativan to Q1h, increase titration dose of Dilaudid to 1mg/hr Q30min. -Continue WOODENWARE ASSEMBLER Will follow as needed. Palliative Performance Scale: 10 % Discharge planning: other ([facility] hospice)
[2017-02-09] MEDS: HYDROmorphone/NSS 100MG/100ML 100 ML IV PRN (12:39)
--- NOTE | 2017-02-09 17:47 | Family Medicine Progress Note ---
Progress Note Date of Service Feb 09, 2017. Subjective Pt evaluation today including: conversation w/ patient, conversation w/ family , physical exam, chart review, lab review, review of studies Pain: No acute complaints of pain this morning Voiding: mclean catheter in place Patient was having increased agitation this morning and continued complaints of pain overnight so his Ativan and Hydrocodone doses were both increased. Since that time he has been sleeping and resting comfortably in bed. He is making deep agonal breaths this morning with family at bedside but in no acute distress. Additional Comments: Patient is resting comfortably in bed this morning and very sleepy and confused due to the dosing of the pain medications to make himself comfortable Medications Current Inpatient Medications Medications (Trade) Dose Ordered Sig/Scott Route Start Time Stop Time Status Last Admin Dose Admin Scopolamine (Transderm-Scop Patch) 1.5 mg Q72H TD 02/05/17 21:45 03/07/17 21:44 02/08/17 21:19 1.5 MG Miscellaneous (Remove Transderm-Scop Patch) 1 ea Q72H N/A 02/08/17 21:45 03/10/17 21:44 02/08/17 21:19 1 EA Miscellaneous Information (Check Scopolamine Patch Placement) 1 ea QS N/A 02/06/17 00:00 03/08/17 00:00 02/09/17 15:46 1 EA Ondansetron HCl (Zofran Inj) 4 mg Q4H PRN IV 02/05/17 21:45 03/07/17 21:44 02/08/17 14:17 4 MG Fentanyl (Duragesic Patch) 100 mcg Q48H TD 02/05/17 22:30 02/09/17 22:29 02/07/17 22:17 100 MCG Miscellaneous Information (Check Fentanyl Patch Placement) 1 ea QS N/A 02/06/17 00:00 03/08/17 00:00 02/09/17 15:46 1 EA Lorazepam (Ativan Tab) 0.5 mg Q6H PRN PO 02/06/17 11:15 03/08/17 11:14 02/06/17 11:16 0.5 MG Miscellaneous Information 1 ea 1 ea QS N/A 02/07/17 16:00 03/09/17 15:59 02/09/17 15:46 1 EA Promethazine HCl/ Sodium Chloride (Phenergan Inj/ Nss 50ml) 50.5 ml @ 202 mls/hr Q6H IV 02/07/17 22:00 03/09/17 21:59 02/09/17 15:49 202 MLS/HR Miscellaneous (Fentanyl Patch Remove & Waste) 1 ea Q48H N/A 02/07/17 22:30 03/09/17 22:29 02/07/17 22:19 1 EA Miscellaneous 1 ea 1 ea Q48H N/A 02/07/17 22:30 03/09/17 22:29 02/07/17 22:21 1 EA Hydromorphone HCl (Dilaudid/Nss 100MG/100ML) 100 ml @ 4.5 mls/hr [id number] PRN IV 02/08/17 10:15 02/09/17 12:39 4 MLS/HR Fentanyl (Duragesic Patch) 150 mcg Q48H TD 02/09/17 22:30 02/23/17 22:29 Lorazepam 1 mg 1 mg Q2H PRN IV 02/09/17 14:15 03/11/17 14:14 02/09/17 15:46 1 MG Lorazepam/Syringe (Ativan Inj/ Syringe) 1 ml @ 1 mls/min Q2H PRN IV 02/09/17 14:15 03/11/17 14:14 Objective Vital Signs Date Time Temp Pulse Resp B/P Pulse Ox O2 Delivery O2 Flow Rate FiO2 02/09/17 16:09 Room Air 02/09/17 13:19 Room Air 02/09/17 08:03 36.7 94 22 130/72 91 Room Air 02/09/17 00:00 Room Air Physical Exam General Appearance: no apparent distress, + cachetic Eyes: normal inspection, sclerae normal Neck: supple, no carotid bruits, trachea midline Respiratory/Chest: chest non-tender, lungs clear, normal breath sounds, no respiratory distress, no accessory muscle use Cardiovascular: regular rate, rhythm, no edema, no gallop, no murmur Abdomen: normal bowel sounds, non tender, soft Extremities: no pedal edema, no calf tenderness Neurologic/Psychiatric: + disoriented Assessment and Plan Patient is a 71 year old male with Metastatic prostate and colon cancer currently receiving home hospice care. 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 - July of 2013 - Diagnosed prostate cancer. - Later found to have metastasis to his left SI joint and right humerus - Due to continued difficulties with the TOXICS PROGRAM OFFICER pump we changed his Dilaudid to continuous dosing - Fentanyl patch 150g q48h - Dilaudid 4.5mg/hr 2) Nausea - Zofran 4mg IV q4h PRN - Scopolamine patch 1mg q72h - Phenergan 12.5mg IV q6h 3) Anxiety - Ativan 1 q2h IV PRN 4) Bilateral Hip Pain s/p Fall - Hip/Pelvis X-Ray: No acute evidence of fractures 5) Disposition - Hospice care - POLST form already completed - [facility] will accept patient with PICC but no beds available until next week 6) Code Status - DNR Reviewed: Pt Seen/Exam by Me History Resident Physician Supervision Note: I interviewed and examined the patient. Discussed with Dr. Mcdowell and agree with findings and plan as documented in the note. Any exceptions or clarifications are listed here: Patient seems much more comfortable when I saw him today. He is very drowsy and barely opened his eyes to verbal stimulation. Daughter reports he's been sleeping most of the day and appears more comfortable and the Dilaudid drip and with Ativan. Vitals reviewed Cachectic, appears comfortable lying in bed sleeping Skin no rashes 71-year-old unfortunate male with metastatic prostate cancer here with intractable nausea vomiting and bony metastatic pain on inpatient hospice. -Continue Dilaudid drip titrated to comfort -Continue Ativan as needed for anxiety or agitation -Continue scopolamine patch, Phenergan, Zofran for nausea vomiting -I expect him to pass away in the hospital within the next 7 days and therefore should remain here, I don't believe transferred to [facility] will be necessary Documented By: Hafsa Kumar
[2017-02-09] MEDS: LORAZEPAM INJ 1 MG in SYRINGE 0.5 ML IV PRN (21:23)
[2017-02-09] MEDS: FENTANYL PATCH REMOVE & WASTE SCH ×2 (21:30)
[2017-02-09] MEDS: FENTANYL 75 MCG/HR TDSY TD SCH (21:31)
[2017-02-09] MEDS ORDERED: FENTANYL PATCH REMOVE & WASTE SCH (22:29)
[2017-02-09] MEDS ORDERED: FENTANYL 50 MCG/HR TDSY TD SCH (22:30)
[2017-02-10] MEDS: CHECK FENTANYL PATCH PLACEMENT SCH ×8 (00:09→22:42)
[2017-02-10] MEDS: CHECK SCOPOLAMINE PATCH PLACEMENT SCH ×4 (00:10→22:43)
[2017-02-10] MEDS: PROMETHAZINE HCL INJ 12.5 MG in SODIUM CHLORIDE 0.9% 50ML 50 ML IV SCH ×4 (04:16→21:04)
[2017-02-10] MEDS: LORAZEPAM INJ 1 MG in SYRINGE 0.5 ML IV PRN ×2 (06:22→20:36)
[2017-02-10 12:10] VITALS: TEMP 37.9
[2017-02-10] MEDS ORDERED: ACETAMINOPHEN IV 1,000 MG in EMPTY BAG 0 ML IV PRN (12:15)
[2017-02-10] MEDS: HYDROmorphone/NSS 100MG/100ML 100 ML IV PRN (12:27)
[2017-02-10 16:57] VITALS: BP 112/69; PULSE 69; TEMP 37.1
[2017-02-10] MEDS ORDERED: NURSING VERBAL MED ORDER ONE (20:45)
[2017-02-10 22:44] VITALS: TEMP 40
[2017-02-10] MEDS: ACETAMINOPHEN IV 100 ML IV PRN (22:44)
[2017-02-11 00:37] VITALS: TEMP 39.4
[2017-02-11] MEDS: PROMETHAZINE HCL INJ 12.5 MG in SODIUM CHLORIDE 0.9% 50ML 50 ML IV SCH ×4 (03:38→22:00)
[2017-02-11] MEDS: LORAZEPAM INJ 1 MG in SYRINGE 0.5 ML IV PRN ×3 (06:33→22:12)
[2017-02-11 06:38] VITALS: TEMP 38.9
--- NOTE | 2017-02-11 07:35 | Family Medicine Progress Note ---
Progress Note Date of Service Feb 10, 2017. Subjective Pt evaluation today including: conversation w/ patient, physical exam, chart review, lab review, review of studies Pain: Patient unarousable this morning Voiding: mclean catheter in place Patient resting comfortably overnight with no acute events. No complaints of pain or acute agitation and patient appears comfortable in bed. Medications Current Inpatient Medications Medications (Trade) Dose Ordered Sig/Scott Route Start Time Stop Time Status Last Admin Dose Admin Scopolamine (Transderm-Scop Patch) 1.5 mg Q72H TD 02/05/17 21:45 03/07/17 21:44 02/08/17 21:19 1.5 MG Miscellaneous (Remove Transderm-Scop Patch) 1 ea Q72H N/A 02/08/17 21:45 03/10/17 21:44 02/08/17 21:19 1 EA Miscellaneous Information (Check Scopolamine Patch Placement) 1 ea QS N/A 02/06/17 00:00 03/08/17 00:00 02/10/17 22:43 1 EA Ondansetron HCl (Zofran Inj) 4 mg Q4H PRN IV 02/05/17 21:45 03/07/17 21:44 02/08/17 14:17 4 MG Miscellaneous Information (Check Fentanyl Patch Placement) 1 ea QS N/A 02/06/17 00:00 03/08/17 00:00 02/10/17 22:42 1 EA Lorazepam (Ativan Tab) 0.5 mg Q6H PRN PO 02/06/17 11:15 03/08/17 11:14 02/06/17 11:16 0.5 MG Miscellaneous Information 1 ea 1 ea QS N/A 02/07/17 16:00 03/09/17 15:59 02/10/17 22:42 1 EA Promethazine HCl/ Sodium Chloride (Phenergan Inj/ Nss 50ml) 50.5 ml @ 202 mls/hr Q6H IV 02/07/17 22:00 03/09/17 21:59 02/10/17 10:17 202 MLS/HR Miscellaneous (Fentanyl Patch Remove & Waste) 1 ea Q48H N/A 02/07/17 22:30 03/09/17 22:29 02/09/17 21:30 1 EA Miscellaneous 1 ea 1 ea Q48H N/A 02/07/17 22:30 03/09/17 22:29 02/09/17 21:30 1 EA Hydromorphone HCl (Dilaudid/Nss 100MG/100ML) 100 ml @ 5.5 mls/hr [id number] PRN IV 02/08/17 10:15 02/10/17 12:27 4.5 MLS/HR Fentanyl (Duragesic Patch) 150 mcg Q48H TD 02/09/17 22:30 02/23/17 22:29 02/09/17 21:31 150 MCG Lorazepam 1 mg 1 mg Q2H PRN IV 02/09/17 14:15 03/11/17 14:14 02/09/17 15:46 1 MG Lorazepam 1 mg/ Syringe 1 ml @ 1 mls/min Q2H PRN IV 02/09/17 14:15 03/11/17 14:14 02/11/17 06:33 1 MLS/MIN Acetaminophen (Ofirmev Iv) 100 ml @ 400 mls/hr Q8H PRN IV 02/10/17 22:45 03/12/17 22:44 02/10/17 22:44 400 MLS/HR Objective Vital Signs Date Time Temp Pulse Resp B/P Pulse Ox O2 Delivery O2 Flow Rate FiO2 02/11/17 06:38 38.9 02/11/17 00:37 39.4 02/11/17 00:00 Room Air 02/10/17 22:44 40.0 02/10/17 20:00 Room Air 02/10/17 16:57 37.1 69 112/69 02/10/17 16:00 Room Air 02/10/17 12:10 37.9 02/10/17 08:00 Room Air Physical Exam General Appearance: no apparent distress, + cachetic Respiratory/Chest: chest non-tender, lungs clear, normal breath sounds, no respiratory distress, no accessory muscle use Cardiovascular: regular rate, rhythm, no edema, no gallop Abdomen: normal bowel sounds, non tender, soft Neurologic/Psychiatric: + pertinent finding (Sleeping this morning) Assessment and Plan Patient is a 71 year old male with Metastatic prostate and colon cancer currently receiving home hospice care. 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 - July of 2013 - Diagnosed prostate cancer. - Later found to have metastasis to his left SI joint and right humerus - Fentanyl patch 150g q48h - Dilaudid 4.5mg/hr - Pain well controlled and painted resting comfortably in bed 2) Nausea - Zofran 4mg IV q4h PRN - Scopolamine patch 1mg q72h - Phenergan 12.5mg IV q6h 3) Anxiety - Ativan 1 q2h IV PRN 4) Bilateral Hip Pain s/p Fall - Hip/Pelvis X-Ray: No acute evidence of fractures 5) Disposition - Hospice care - POLST form completed - [facility] will accept patient with PICC but no beds available until next week 6) Code Status - DNR Reviewed: Pt Seen/Exam by Me History Resident Physician Supervision Note: I interviewed and examined the patient. Discussed with Dr. Mcdowell and agree with findings and plan as documented in the note. Any exceptions or clarifications are listed here: Sleeping and minimally responsive to verbal and tactile stimulation. Vitals reviewed Cachectic, appears comfortable lying in bed sleeping Regular rate and rhythm, no murmurs gallops or rubs Mild tachypnea, no accessory muscle use, clear to auscultation bilaterally Skin no rashes 71-year-old unfortunate male with metastatic prostate cancer here with intractable nausea vomiting and bony metastatic pain on inpatient hospice. -Continue Dilaudid drip titrated to comfort -Continue Ativan as needed for anxiety or agitation -Continue scopolamine patch, Phenergan, Zofran for nausea vomiting -I expect him to pass away in the hospital within the next 7 days and therefore should remain here, I don't believe transferred to [facility]/jail will be necessary Documented By: Hafsa Kumar
[2017-02-11] MEDS: ACETAMINOPHEN IV 100 ML IV PRN (08:05)
[2017-02-11] MEDS: CHECK SCOPOLAMINE PATCH PLACEMENT SCH ×2 (08:06→16:00)
[2017-02-11] MEDS: CHECK FENTANYL PATCH PLACEMENT SCH ×4 (08:06→16:00)
[2017-02-11] MEDS: HYDROmorphone/NSS 100MG/100ML 100 ML IV PRN (08:38)
[2017-02-11] MEDS: LORAZEPAM 2 MG/ML 1 ML VIAL IV PRN (12:48)
[2017-02-11] MEDS ORDERED: NURSING VERBAL MED ORDER ONE (13:30)
[2017-02-11 15:07] VITALS: TEMP 37.4
--- NOTE | 2017-02-11 17:52 | Family Medicine Progress Note ---
Progress Note Date of Service Feb 11, 2017. Subjective Pt evaluation today including: conversation w/ patient, conversation w/ family , physical exam, chart review, lab review, review of studies Pain: Patient sleeping comfortably in bed Voiding: no voiding problems, no incontinence Patient is resting comfortably sleeping in bed this morning. Overnight he did become agitated and was given a repeat dose of Ativan in addition to increasing his morphine, and since he has been more comfortable. He was also febrile overnight with a temperature of 40.0 degrees celsius and was treated with Tylenol. Additional Comments: Patient sleeping comfortably in bed and unable to arouse this morning to obtain a ROS Medications Current Inpatient Medications Medications (Trade) Dose Ordered Sig/Scott Route Start Time Stop Time Status Last Admin Dose Admin Scopolamine (Transderm-Scop Patch) 1.5 mg Q72H TD 02/05/17 21:45 03/07/17 21:44 02/08/17 21:19 1.5 MG Miscellaneous (Remove Transderm-Scop Patch) 1 ea Q72H N/A 02/08/17 21:45 03/10/17 21:44 02/08/17 21:19 1 EA Miscellaneous Information (Check Scopolamine Patch Placement) 1 ea QS N/A 02/06/17 00:00 03/08/17 00:00 02/11/17 16:00 1 EA Ondansetron HCl (Zofran Inj) 4 mg Q4H PRN IV 02/05/17 21:45 03/07/17 21:44 02/08/17 14:17 4 MG Miscellaneous Information (Check Fentanyl Patch Placement) 1 ea QS N/A 02/06/17 00:00 03/08/17 00:00 02/11/17 16:00 1 EA Lorazepam (Ativan Tab) 0.5 mg Q6H PRN PO 02/06/17 11:15 03/08/17 11:14 02/06/17 11:16 0.5 MG Miscellaneous Information 1 ea 1 ea QS N/A 02/07/17 16:00 03/09/17 15:59 02/11/17 16:00 1 EA Promethazine HCl/ Sodium Chloride (Phenergan Inj/ Nss 50ml) 50.5 ml @ 202 mls/hr Q6H IV 02/07/17 22:00 03/09/17 21:59 02/10/17 10:17 202 MLS/HR Miscellaneous (Fentanyl Patch Remove & Waste) 1 ea Q48H N/A 02/07/17 22:30 03/09/17 22:29 02/09/17 21:30 1 EA Miscellaneous 1 ea 1 ea Q48H N/A 02/07/17 22:30 03/09/17 22:29 02/09/17 21:30 1 EA Hydromorphone HCl (Dilaudid/Nss 100MG/100ML) 100 ml @ 6.5 mls/hr [id number] PRN IV 02/08/17 10:15 02/20/17 10:14 02/11/17 08:38 5.5 MLS/HR Fentanyl (Duragesic Patch) 150 mcg Q48H TD 02/09/17 22:30 02/23/17 22:29 02/09/17 21:31 150 MCG Lorazepam 1 mg 1 mg Q2H PRN IV 02/09/17 14:15 03/11/17 14:14 02/11/17 12:48 1 MG Lorazepam 1 mg/ Syringe 1 ml @ 1 mls/min Q2H PRN IV 02/09/17 14:15 03/11/17 14:14 02/11/17 06:33 1 MLS/MIN Acetaminophen (Ofirmev Iv) 100 ml @ 400 mls/hr Q8H PRN IV 02/10/17 22:45 03/12/17 22:44 02/11/17 08:05 400 MLS/HR Objective Vital Signs Date Time Temp Pulse Resp B/P Pulse Ox O2 Delivery O2 Flow Rate FiO2 02/11/17 15:45 Room Air 02/11/17 15:07 37.4 02/11/17 08:00 Room Air 02/11/17 06:38 38.9 02/11/17 00:37 39.4 02/11/17 00:00 Room Air 02/10/17 22:44 40.0 02/10/17 20:00 Room Air Physical Exam General Appearance: WD/WN, no apparent distress Respiratory/Chest: chest non-tender, lungs clear, normal breath sounds Cardiovascular: regular rate, rhythm, no gallop, no murmur Abdomen: normal bowel sounds, non tender, soft Neurologic/Psychiatric: + pertinent finding (sleeping) Assessment and Plan Patient is a 71 year old male with Metastatic prostate and colon cancer currently receiving home hospice care. 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 - July of 2013 - Diagnosed prostate cancer. - Later found to have metastasis to his left SI joint and right humerus - Fentanyl patch 150g q48h - Dilaudid 5.5mg/hr - Pain well controlled and painted resting comfortably in bed 2) Nausea - Zofran 4mg IV q4h PRN - Scopolamine patch 1mg q72h - Holding Phenergan 12.5mg IV q6h 3) Anxiety - Ativan 1 q2h IV PRN 4) Bilateral Hip Pain s/p Fall - Hip/Pelvis X-Ray: No acute evidence of fractures 5) Disposition - Hospice care - POLST form completed - [facility] will accept patient with PICC but no beds available until next week 6) Code Status - DNR Reviewed: Pt Seen/Exam by Me History Resident Physician Supervision Note: I interviewed and examined the patient. Discussed with Dr. Mcdowell and agree with findings and plan as documented in the note. Any exceptions or clarifications are listed here: Sleeping and minimally responsive to verbal and tactile stimulation. Vitals reviewed Cachectic, appears comfortable lying in bed sleeping no accessory muscle use, breathing is unlabored Skin no rashes, there is edema of the extremities 71-year-old unfortunate male with metastatic prostate cancer here with intractable nausea vomiting and bony metastatic pain on inpatient hospice. -Continue Dilaudid drip titrated to comfort -Continue Ativan as needed for anxiety or agitation -Continue scopolamine patch, Phenergan when necessary, Zofran for nausea vomiting -I expect him to pass away in the hospital within the next 7 days and therefore should remain here, I don't believe transferred to [facility]/jail will be necessary Documented By: Hafsa Kumar
[2017-02-11] MEDS: SCOPOLAMINE 1.5 MG TDSY TD SCH (22:13)
[2017-02-11] MEDS: FENTANYL 75 MCG/HR TDSY TD SCH (22:49)
[2017-02-11] MEDS: FENTANYL PATCH REMOVE & WASTE SCH ×2 (22:53)
[2017-02-12] MEDS: CHECK FENTANYL PATCH PLACEMENT SCH ×6 (00:01→16:21)
[2017-02-12] MEDS: CHECK SCOPOLAMINE PATCH PLACEMENT SCH ×3 (00:04→16:22)
[2017-02-12] MEDS: HYDROmorphone/NSS 100MG/100ML 100 ML IV PRN ×3 (01:17→16:21)
[2017-02-12] MEDS: PROMETHAZINE HCL INJ 12.5 MG in SODIUM CHLORIDE 0.9% 50ML 50 ML IV SCH ×2 (04:00→10:00)
[2017-02-12] MEDS: LORAZEPAM INJ 1 MG in SYRINGE 0.5 ML IV PRN ×3 (10:26→22:57)
[2017-02-12] MEDS ORDERED: NURSING VERBAL MED ORDER ONE ×2 (10:30→17:00)
[2017-02-12] MEDS ORDERED: PROMETHAZINE HCL INJ 12.5 MG in SODIUM CHLORIDE 0.9% 50ML 50 ML IV PRN (16:00)
[2017-02-12] MEDS ORDERED: LORAZEPAM 2 MG/ML 1 ML VIAL IV PRN (16:15)
--- NOTE | 2017-02-12 16:17 | Family Medicine Progress Note ---
Progress Note Date of Service Feb 12, 2017. Subjective Pt evaluation today including: conversation w/ patient, physical exam, chart review, lab review, review of studies Pain: Patient sleeping this morning in no acute distress Voiding: mclean catheter in place Patient had some agitation overnight so his Dilaudid was increased to 7.5mg/hr. He has been resting comfortably in bed since. Has continued to be afebrile overnight. Additional Comments: Unable to obtain ROS due to patient sleeping Medications Current Inpatient Medications Medications (Trade) Dose Ordered Sig/Scott Route Start Time Stop Time Status Last Admin Dose Admin Scopolamine (Transderm-Scop Patch) 1.5 mg Q72H TD 02/05/17 21:45 03/07/17 21:44 02/11/17 22:13 1.5 MG Miscellaneous (Remove Transderm-Scop Patch) 1 ea Q72H N/A 02/08/17 21:45 03/10/17 21:44 02/11/17 22:13 1 EA Miscellaneous Information (Check Scopolamine Patch Placement) 1 ea QS N/A 02/06/17 00:00 03/08/17 00:00 02/12/17 08:00 1 EA Ondansetron HCl (Zofran Inj) 4 mg Q4H PRN IV 02/05/17 21:45 03/07/17 21:44 02/08/17 14:17 4 MG Miscellaneous Information (Check Fentanyl Patch Placement) 1 ea QS N/A 02/06/17 00:00 03/08/17 00:00 02/12/17 08:00 1 EA Lorazepam (Ativan Tab) 0.5 mg Q6H PRN PO 02/06/17 11:15 03/08/17 11:14 02/06/17 11:16 0.5 MG Miscellaneous Information (Check Fentanyl Patch Placement) 1 ea QS N/A 02/07/17 16:00 03/09/17 15:59 02/12/17 08:00 1 EA Miscellaneous (Fentanyl Patch Remove & Waste) 1 ea Q48H N/A 02/07/17 22:30 03/09/17 22:29 02/11/17 22:53 1 EA Miscellaneous 1 ea 1 ea Q48H N/A 02/07/17 22:30 03/09/17 22:29 02/11/17 22:53 1 EA Hydromorphone HCl (Dilaudid/Nss 100MG/100ML) 100 ml @ 7.5 mls/hr [id number] PRN IV 02/08/17 10:15 02/20/17 10:14 02/12/17 10:58 7.5 MLS/HR Fentanyl 150 mcg 150 mcg Q48H TD 02/09/17 22:30 02/23/17 22:29 02/11/17 22:49 150 MCG Acetaminophen 100 ml @ 400 mls/hr Q8H PRN IV 02/10/17 22:45 03/12/17 22:44 02/11/17 08:05 400 MLS/HR Promethazine HCl 12.5 mg/Sodium Chloride 50.5 ml @ 202 mls/hr Q6H PRN IV 02/12/17 16:00 03/14/17 15:59 Lorazepam/Syringe (Ativan Inj/ Syringe) 1 ml @ 1 mls/min Q1H PRN IV 02/12/17 16:15 03/14/17 16:14 Lorazepam (Ativan Inj) 1 mg Q1H PRN IV 02/12/17 16:15 03/14/17 16:14 Objective Vital Signs Date Time Temp Pulse Resp B/P Pulse Ox O2 Delivery O2 Flow Rate FiO2 02/12/17 16:00 Room Air 02/12/17 08:00 Room Air 02/11/17 23:59 Room Air 02/11/17 20:00 Room Air Physical Exam General Appearance: no apparent distress, + cachetic Neck: supple, no carotid bruits, trachea midline Respiratory/Chest: chest non-tender, lungs clear, normal breath sounds, no respiratory distress Cardiovascular: regular rate, rhythm, no edema, no gallop, no murmur Abdomen: normal bowel sounds, non tender, soft Extremities: no pedal edema Neurologic/Psychiatric: + pertinent finding (Sleeping) Assessment and Plan Patient is a 71 year old male with Metastatic prostate and colon cancer currently receiving home hospice care. 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 - July of 2013 - Diagnosed prostate cancer. - Later found to have metastasis to his left SI joint and right humerus - Fentanyl patch 150g q48h - Dilaudid 7.5mg/hr - Pain well controlled and patient resting comfortably in bed 2) Nausea - Zofran 4mg IV q4h PRN - Scopolamine patch 1mg q72h - Holding Phenergan 12.5mg IV q6h 3) Anxiety - Ativan 1mg q2h IV PRN 4) Bilateral Hip Pain s/p Fall - Hip/Pelvis X-Ray: No acute evidence of fractures 5) Disposition - Hospice care - POLST form completed 6) Code Status - DNR Reviewed: Pt Seen/Exam by Me History Resident Physician Supervision Note: I interviewed and examined the patient. Discussed with Dr. Mcdowell and agree with findings and plan as documented in the note. Any exceptions or clarifications are listed here: Sleeping and appears comfortable. Vitals reviewed Cachectic, appears comfortable lying in bed sleeping no accessory muscle use, breathing is deep and long 71-year-old unfortunate male with metastatic prostate cancer here with intractable nausea vomiting and bony metastatic pain on inpatient hospice. -Continue Dilaudid drip titrated to comfort -Continue Ativan as needed for anxiety or agitation and will increase to 1 mg every hour when necessary -Continue scopolamine patch, Phenergan when necessary, Zofran for nausea vomiting -I expect him to pass away in the hospital within the next 7 days and therefore should remain here, I don't believe transferred to [facility]/fci will be necessary Documented By: Hafsa Kumar
[2017-02-12] MEDS: ACETAMINOPHEN IV 100 ML IV PRN (16:58)
[2017-02-13] MEDS: CHECK SCOPOLAMINE PATCH PLACEMENT SCH (00:11)
[2017-02-13] MEDS: CHECK FENTANYL PATCH PLACEMENT SCH ×2 (00:11)
[2017-02-13] MEDS: ACETAMINOPHEN IV 100 ML IV PRN (00:26)
[2017-02-13] MEDS: LORAZEPAM INJ 1 MG in SYRINGE 0.5 ML IV PRN (02:51)
--- NOTE | 2017-02-13 07:27 | Death Pronouncement Note ---
Pronouncement Note Date & Time of Feb 13, 2017. 3:06 AM Pronouncement At time of pronouncement the patients pupils were fixed and dilated, there was no spontaneous respiratory effort, no palpable pulse, no audible heart tones, and no response to pain or voice.
--- NOTE | 2017-02-13 21:14 | Death Summary ---
Summary of Admission Date Feb 05, 2017 at 20:27 Date & Time of Feb 13, 2017. 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 With IV access established, patient was hydrated with 1L NSS and administered anti emetic, IV zofran 4mg with improvement of symptoms. Patient was admitted at the request of family and the hospice nurse for pain and nausea management. Gentle IV hydration was maintained with mIVF. Pain control was initially attained with fentanyl 100g transdermal patch q48h, Roxanol liquid 15mg q1hr PRN and IV Dilaudid 1mg q2h for breakthrough pain, with Zofran and scopolamine patch for other symptom management. Patient was confused but alert, and occasionally responding appropriately. Palliative consulted, there recommendations were appreciated. POLST was signed. Roxanol use resulted in further nausea and dry heaving, so after Zofran and Phenergan administration, it was decided that the patient would benefit from a Dilaudid 1mg/hr WELDING PROCESS ENGINEER pump. Palliative discussion with revealed that she had begun to find home care to be overwhelming, and as such, patient and family were agreeable to continue home hospice care at SNF. Search for SNF accepting PICC/ WELDING PROCESS ENGINEER pumps commenced. Patient became increasingly disoriented/confused, although he was spontaneously awake. Despite the current analgesics, patients pain increased, and as such, basal rate to the Dilaudid WELDING PROCESS ENGINEER was added. Fentanyl patch dose was subsequently increased as patient became less able to use the WELDING PROCESS ENGINEER. Patient was confused, but had been since admission. He was still spontaneously awake and not sedated. Nausea also worsened so anti-emetics, zofran and phenergen were converted from PO to IV. With increased pain, palliative suggested a Dilaudid infusion be commenced. A discussion was had with children and grand children. Patient seemed increasingly comfortable with infusion. Alertness intermittent but diminished Patient on Feb 13, 2017 at 3:06 AM
== END 2017-02-13 06:39 | disposition expired | DRG 375 ==
LOC: ENRESERVDT → ENRESERVTM → EDBD 17:16 → C.EDA 17:18 → C.4E 20:27
PROVIDERS: ADMIT Family Medicine; ATTEND Family Medicine
DX: C78.5 Secondary malignant neoplasm of large intestine and rectum (principal); C78.7 Secondary malignant neoplasm of liver and intrahepatic bile duct; F11.23 Opioid dependence with withdrawal; C79.82 Secondary malignant neoplasm of genital organs; C79.51 Secondary malignant neoplasm of bone; R11.2 Nausea with vomiting, unspecified; R19.7 Diarrhea, unspecified; E86.0 Dehydration; Z66 Do not resuscitate; Z51.5 Encounter for palliative care; G89.3 Neoplasm related pain (acute) (chronic); R09.2 Respiratory arrest; C61 Malignant neoplasm of prostate